=== PATIENT | female | born 1940 | race Caucasian/White ===

== ENCOUNTER → 2017-05-17 10:51 | Outpatient (CLI) | payer MEDICARE, SELFPAY ==
[2017-05-17 12:08] LABS: Absolute Lymphocyte Count 1.62 X10^3/ul (0.83-4.51); Absolute Neutrophil Count 3.3 X10^3/uL (2.0-7.7); Basophil# 0.03 X10^3/uL; Basophil% 0.5 % (0-1); Eosinophil# 0.04 X10^3/uL; Eosinophils% 0.7 % (0-5); Hematocrit 43.2 % (37-47); Hemoglobin 14.5 g/dl (12.0-15.0); Lymphocyte # 1.62 X10^3/ul (4.0); Lymphocyte % 29.1 % (19-41); Mean Corp Hgb Conc 33.6 g/gl (32-36); Mean Corpuscular Hgb 34.2 pg (27.0-32.0); Mean Corpuscular Volume 101.9 fL (81-99); Mean Platelet Vol. 9.1 fl (6.2-12.0); Monocyte# 0.54 X10^3/uL; Monocyte% 9.7 % (0-10); Neutrophil # 3.32 X10^3/uL (2.7-7.7); Neutrophil % 59.6 % (47-70); Platelet Count 348 K/mm3 (150-450); RBC Distribution Width CV 11.8 % (11.6-14.6); RBC Distribution Width SD 43.8 fl (35.1-43.9); Red Blood Count 4.24 M/mm3 (4.2-5.4); White Blood Count 5.6 K/mm3 (4.4-11.0)
[2017-05-17 12:12] LABS: POSITIVE COUNT NO; POSITIVE DIFFERENTIAL NO; POSITIVE MORPHOLOGY NO
[2017-05-17 12:18] LABS: Hemoglobin A1c 5.2 % (4.2-6.3)
[2017-05-17 12:22] LABS: Anion Gap 6 (5-15); BUN 16 mg/dL (7-18); BUN/Creat Ratio 22.8 RATIO (10-20); Calcium,Total 9.3 mg/dL (8.5-10.1); Chloride 98 mmol/L (98-107); EST Glomerular Filtration Rate 86 mL/min (>60); Est Glom Filt Rate - Afr Amer 104 mL/min (>60); Glucose 94 mg/dL (74-106); Potassium 3.8 mmol/L (3.5-5.1); Sodium Level 135 mmol/L (136-145)
== END ==
PROVIDERS: Family Provider Family Medicine; PCP Family Medicine; Visit Provider Family Medicine
DX: I10 Essential (primary) hypertension (principal); R73.01 Impaired fasting glucose
CPT/HCPCS: 36415; 80048; 83036; 85025

== ENCOUNTER → 2017-05-25 09:56 | Outpatient (CLI) | payer MEDICARE, SELFPAY ==
--- NOTE | 2017-05-25 10:00 | MRI_ITS ---
STUDY: MRI BRAIN WITH AND WITHOUT CONTRAST REASON FOR EXAM: Female, 76 years old. brain tumor, f/u meningioma, no symptoms. TECHNIQUE: Standardized multiplanar fat and water weighted pulse sequences were obtained. 7 ml of Gadavist contrast material was administered intravenously for the contrast portion of the examination. COMPARISON: October 27, 2016 FINDINGS: There is mild cerebral atrophy with widening of the extra-axial spaces and ventricular dilatation. There are multiple white matter hyperintensities, distributed throughout the deep white matter tracts of the cerebral hemispheres, consistent with moderate chronic white matter ischemic changes. Normal bilateral basal ganglia. Normal thalami. Again noted is the 1.0 x 0.7 cm right occipital enhancing lesion along the right tentorial leaflet without surrounding edema and without significant change since the prior examination. This lesion is most compatible with meningioma. Normal flow voids within the major intracranial circulation suggesting patency by spin echo criteria. Normal venous enhancement. There is no enhancing intra-axial or extra-axial abnormality. Normal sella turcica, pituitary gland, infundibular stalk, optic chiasm and hypothalamus. Normal tectal plate and pineal gland. Normal midbrain, alek and medulla. Normal cerebellum. Normal basal cisterns. Normal bilateral temporal bones. Normal bilateral internal auditory canals. There is left maxillary sinus disease. MRI/Brain W/WO Contrast IMPRESSION: Stable 1 cm right tentorial meningioma. Moderate involutional changes. Electronically Signed: Patricia Ledesma MD at 11:10 EDT Tel , Service support ,
== END ==
PROVIDERS: Family Provider Family Medicine; PCP Family Medicine; Visit Provider Nurse Practitioner Acute Care
DX: C71.9 Malignant neoplasm of brain, unspecified (principal)
CPT/HCPCS: 70553; A9585

== ENCOUNTER → 2017-06-01 13:14 | Outpatient (CLI) | payer MEDICARE, SELFPAY ==
--- NOTE | 2017-06-01 13:17 | CT_ITS ---
STUDY: CT CHEST WITH CONTRAST REASON FOR EXAM: Female, 76 years old. LUNG NODULE SOB RADIATION DOSAGE (If Supplied By Facility): CTDIvol = ( 7.75 ) mGy, DLP = ( 201.74 ) mGycm TECHNIQUE: Transaxial imaging was performed following intravenous administration of 100ML ml of Isovue 300 contrast material. Individualized dose optimization techniques were used for this CT. COMPARISON: 5.3.17 FINDINGS: 4.6 x 4 mm nodule of the left upper lobe. There are emphysematous changes of the lungs with emphysematous blebs. There is no demonstrated pleural abnormality. Normal heart and pericardium. Normal mediastinum. Normal hilar regions. Normal enhanced pulmonary arteries. Normal aorta arch and descending thoracic aorta. There are multi-level degenerative changes of the thoracic spine. There is no demonstrated abnormality of the visualized upper abdomen. CT/Chest WITH Contrast IMPRESSION: Stable nodule in the left upper lobe There are coronary arterial calcifications. Electronically Signed: Herminio Bean MD at 21:44 EDT , Service support ,
== END ==
PROVIDERS: Family Provider Family Medicine; PCP Family Medicine; Visit Provider Family Medicine
DX: R91.1 Solitary pulmonary nodule (principal); R06.00 Dyspnea, unspecified
CPT/HCPCS: 71260; Q9967

== ENCOUNTER → 2017-06-14 11:54 | Outpatient (CLI) | payer MEDICARE, SELFPAY ==
--- NOTE | 2017-06-14 11:57 | BI_ITS ---
MAMMOGRAPHY - BILATERAL SCREENING REASON FOR EXAM: Female, 76 years old. Routine annual screening examination. PERTINENT HISTORY: Non-contributory. Remote right excisional breast biopsies. TECHNIQUE: Digital bilateral breast edy (3D mammographic acquisition) in the CC and MLO projections. 2-D mediolateral oblique (MLO) and craniocaudad (CC) views of both breasts were obtained. CAD: Full Field Digital Mammography with Computer Added Detection was performed. COMPARISON: Comparison is made with prior examination dated November 21, 2014 and August 07, 2015. FINDINGS: Breast Composition: The breasts are heterogeneously dense, which may obscure small masses. There are no dominant masses or suspicious calcifications. Stable bilateral benign appearing axillary lymph nodes. No other significant abnormalities are identified. There has been no significant change since the prior study. BI/SCREENING MAMM (CAD), BILAT IMPRESSION: Stable bilateral screening mammogram. Yearly follow-up mammogram recommended. (A) ASSESSMENT CATEGORY: BIRADS Category 1: Negative. A letter regarding these results will be sent to the patient by the facility within 30 days. Approximately 10% of breast cancers are not detected by mammography. A normal mammogram should not delay biopsy of a clinically suspicious abnormality. [id number] Electronically Signed: Liu Newman MD at 13:59 EDT Tel [phone], Service support ,
== END ==
PROVIDERS: Family Provider Family Medicine; PCP Family Medicine; Visit Provider Family Medicine
DX: Z12.31 Encounter for screening mammogram for malignant neoplasm of breast (principal)
CPT/HCPCS: 77063; 77067

== ENCOUNTER → 2017-11-10 15:33 | Outpatient (CLI) | payer MEDICARE, SELFPAY ==
[2017-11-10 17:43] LABS: Absolute Lymphocyte Count 1.64 X10^3/ul (0.83-4.51); Absolute Neutrophil Count 4.5 X10^3/uL (2.0-7.7); Basophil# 0.03 X10^3/uL; Basophil% 0.4 % (0-1); Eosinophil# 0.02 X10^3/uL; Eosinophils% 0.3 % (0-5); Hematocrit 42.3 % (37-47); Hemoglobin 13.8 g/dl (12.0-15.0); Lymphocyte # 1.64 X10^3/ul (4.0); Lymphocyte % 23.6 % (19-41); Mean Corp Hgb Conc 32.6 g/gl (32-36); Mean Corpuscular Hgb 33.2 pg (27.0-32.0); Mean Corpuscular Volume 101.7 fL (81-99); Mean Platelet Vol. 9.3 fl (6.2-12.0); Monocyte# 0.72 X10^3/uL; Monocyte% 10.4 % (0-10); Neutrophil # 4.51 X10^3/uL (2.7-7.7); Platelet Count 361 K/mm3 (150-450); RBC Distribution Width CV 12.1 % (11.6-14.6); RBC Distribution Width SD 44.9 fl (35.1-43.9); Red Blood Count 4.16 M/mm3 (4.2-5.4); White Blood Count 6.9 K/mm3 (4.4-11.0)
[2017-11-10 18:04] LABS: POSITIVE COUNT NO; POSITIVE DIFFERENTIAL NO; POSITIVE MORPHOLOGY NO
== END ==
PROVIDERS: Visit Provider Family Medicine
DX: K62.5 Hemorrhage of anus and rectum (principal)
CPT/HCPCS: 36415; 85025

== ENCOUNTER → 2017-11-22 13:32 | Outpatient (CLI) | payer MEDICARE, SELFPAY ==
[2017-11-22 14:01] LABS: International Normalized Ratio 0.9; Partial Thromboplast Time 25.6 Seconds (24.1-36.2); Prothrombin Time (Protime)PT. 11.8 SECONDS (11.7-14.9)
[2017-11-22 14:15] LABS: AST(SGOT) 36 U/L (15-37); Alanine Aminotransfer ALT/SGPT 44 U/L (13-56); Albumin, Serum 4.1 g/dL (3.2-5.0); Alkaline Phosphatase 59 U/L (45-117); Anion Gap 8 (5-15); BUN 12 mg/dL (7-18); BUN/Creat Ratio 16.2 RATIO (10-20); Calcium,Total 9.3 mg/dL (8.5-10.1); Chloride 91 mmol/L (98-107); Creatinine, Serum 0.74 mg/dL (0.55-1.02); EST Glomerular Filtration Rate 81 mL/min (>60); Est Glom Filt Rate - Afr Amer 98 mL/min (>60); Glucose 94 mg/dL (74-106); Potassium 3.9 mmol/L (3.5-5.1); Protein, Total 8.1 g/dL (6.4-8.2); Sodium Level 130 mmol/L (136-145)
== END ==
PROVIDERS: Family Provider Family Medicine; PCP Family Medicine; Visit Provider Surgery
DX: K62.5 Hemorrhage of anus and rectum (principal); Z87.898 Personal history of other specified conditions
CPT/HCPCS: 36415; 80053; 85610; 85730

== ENCOUNTER 2017-12-02 07:09 | Day surgery (SDC) | payer MEDICARE, SELFPAY ==
--- NOTE | 2017-12-02 | COLBX_PTH ---
PATIENT: COMPA WATERS LOC: EN U#:[id number] AGE/SX: 77/F ROOM: RE12/02/[address]: Dr. Tejas Perdomo MD : 1940 BED: DIS: 12/02/2017 SPEC #: [id number] RECD: 12/02/17 13:14 STATUS: PARMINDER LIZETT #: [id number] CHAPITO: 12/02/17 00:[address]: Tejas Perdomo DEPT: SURGICAL PATHOLOGY RECD BY: Lc Guan ENTERED: 12/02/17 13:15 SP TYPE: COLON BX OT DR: Dr. Rustam Castro MD Tissues: A - Sigmoid colon biopsy B - Rectum, NOS Procedures: Surgery Specimen Level IV HEADER OPERATION: Colonoscopy (MAC) PRE-OP DIAGNOSIS: Blood in stool TISSUE SUBMITTED: A - Mid sigmoid polyp biopsies, B - Rectal polyp biopsies MICROSCOPIC DIAGNOSIS A. Mid sigmoid polyp, biopsy: Fragments of hyperplastic polyp. B. Rectal polyp, biopsy: Fragments of hyperplastic polyp. OZ:osorio 12/05/17 MICROSCOPIC DESCRIPTION Slides are reviewed. GROSS DESCRIPTION A - Received in fixative is one container labeled with the patient's name and designated mid sigmoid polyp biopsy. The specimen consists of two irregular fragments of light roy soft tissue that in aggregate measure 2 x 0.5 x 0.1 cm. The specimen is totally submitted in one cassette. B - Received in fixative is one container labeled with the patient's name and designated rectal polyp biopsy. The specimen consists of multiple irregular fragments of roy-pink polyp that in aggregate measure 1.5 x 1 x 0.3 cm. The specimen is totally submitted in one cassette. / OZ:osorio 12/02/17 TC:1 CPT: 81655 x2
[2017-12-02 07:44] VITALS: BP 152/75; PULSE 94; RESP 14; TEMP 36.9; O2SAT 95; BMI 24.5
[2017-12-02 09:01] VITALS: BP 124/68; BP 152/75; PULSE 89; RESP 16; TEMP 37; O2SAT 100
[2017-12-02 09:05] VITALS: BP 124/68; BP 152/75; PULSE 91; RESP 16; O2SAT 100
--- NOTE | 2017-12-02 09:09 | OP.ENDO_ITS ---
Patient Name: Nedra Kaiser Procedure Date: 12/02/2017 8:25 AM Date of : 1940 Age: 77 Procedure: Colonoscopy Indications: Rectal bleeding Providers: Tejas Perdomo MD Referring MD: Tejas Perdomo MD Medicines: See the Anesthesia note for documentation of the administered medications Patient Profile: Last Colonoscopy: none. The patient's first colonoscopy is today. Complications: No immediate complications. Procedure: Pre-Anesthesia Assessment: - Prior to the procedure, a History and Physical was performed, and patient medications and allergies were reviewed. The patient's tolerance of previous anesthesia was also reviewed. The risks and benefits of the procedure and the sedation options and risks were discussed with the patient. All questions were answered, and informed consent was obtained. Prior Anticoagulants: The patient has taken no previous anticoagulant or antiplatelet agents. ASA Grade Assessment: II - A patient with mild systemic disease. After reviewing the risks and benefits, the patient was deemed in satisfactory condition to undergo the procedure. After I obtained informed consent, the scope was passed under direct vision. Throughout the procedure, the patient's blood pressure, pulse, and oxygen saturations were monitored continuously. The pediatric colonoscope was introduced through the anus and advanced to the cecum, identified by appendiceal orifice and ileocecal valve. The colonoscopy was performed without difficulty. The patient tolerated the procedure well. The quality of the bowel preparation was good. The ileocecal valve was photographed. Scope In: 8:33:22 AM Scope Withdrawal Time 0 hours 21 minutes 21 seconds Scope Out: 8:59:58 AM Total Procedure Duration Time 0 hours 26 minutes 36 seconds Findings: The digital rectal exam findings include internal hemorrhoids that prolapse with straining, but spontaneously regress to the resting position (Grade II). Eight sessile polyps were found in the sigmoid colon. The polyps were 3 to 6 mm in size. These polyps were removed with a cold biopsy forceps. Resection and retrieval were complete. Five sessile polyps were found in the rectum. The polyps were 7 to 10 mm in size. These polyps were removed with a hot snare. Resection and retrieval were complete. Multiple diverticula were found in the sigmoid colon and descending colon. Impression: - Internal hemorrhoids that prolapse with straining, but spontaneously regress to the resting position (Grade II) found on digital rectal exam. - Eight 3 to 6 mm polyps in the sigmoid colon, removed with a cold biopsy forceps. Resected and retrieved. - Five 7 to 10 mm polyps in the rectum, removed with a hot snare. Resected and retrieved. - Diverticulosis in the sigmoid colon and in the descending colon. Recommendation: - Discharge patient to home. - Resume previous diet. - Continue present medications. - Telephone my office for pathology results in 1 week. - Repeat colonoscopy in 3 years for surveillance based on pathology results. I do not suspect the polyps are the source of rectal bleeding and suspect hemorrhoids are a more likely source. Will recommend conservative measures. Procedure Code(s): --- Professional --- 76214, Colonoscopy, flexible; with removal of tumor(s), polyp(s), or other lesion(s) by snare technique 67654, 59, Colonoscopy, flexible; with biopsy, single or multiple Diagnosis Code(s): --- Professional --- K64.1, Second degree hemorrhoids D12.5, Benign neoplasm of sigmoid colon K62.1, Rectal polyp K62.5, Hemorrhage of anus and rectum K57.30, Diverticulosis of large intestine without perforation or abscess without bleeding CPT copyright 2017 [employer]. All rights reserved. The codes documented in this report are preliminary and upon broach grinder review may be revised to meet current compliance requirements. Tejas Perdomo MD 12/02/2017 9:09:22 AM This report has been signed electronically. Number of Addenda: 0 Note Initiated On: 12/02/2017 8:25 AM
[2017-12-02 09:10] VITALS: BP 127/69; BP 152/75; PULSE 91; RESP 16; O2SAT 99
[2017-12-02 09:15] VITALS: BP 131/74; BP 152/75; PULSE 85; RESP 16; TEMP 37.2; O2SAT 100
[2017-12-02 09:35] VITALS: BP 152/75
== END 2017-12-02 09:58 | disposition home or self-care (01) ==
LOC: EN 07:10 → AC 07:12
PROVIDERS: Family Provider Family Medicine; PCP Family Medicine; Visit Provider Surgery
PROC: 0DJD8ZZ Inspection of Lower Intestinal Tract, Via Natural or Artificial Opening Endoscopic (ICD-10-PCS; CPT 45378; principal; 2017-12-02 08:10)
DX: K64.1 Second degree hemorrhoids (principal); D12.5 Benign neoplasm of sigmoid colon; K62.1 Rectal polyp; K62.5 Hemorrhage of anus and rectum; K57.30 Diverticulosis of large intestine without perforation or abscess without bleeding; Z87.891 Personal history of nicotine dependence
CPT/HCPCS: 45380; 45385; 88305; J7120

== ENCOUNTER → 2017-12-16 11:09 | Outpatient (CLI) | payer MEDICARE, SELFPAY ==
[2017-12-16 12:35] LABS: Absolute Lymphocyte Count 1.43 X10^3/ul (0.83-4.51); Absolute Neutrophil Count 4.2 X10^3/uL (2.0-7.7); Basophil# 0.03 X10^3/uL; Basophil% 0.5 % (0-1); Eosinophil# 0.03 X10^3/uL; Eosinophils% 0.5 % (0-5); Hematocrit 45.4 % (37-47); Hemoglobin 14.4 g/dl (12.0-15.0); Lymphocyte # 1.43 X10^3/ul (4.0); Lymphocyte % 22.9 % (19-41); Mean Corp Hgb Conc 31.7 g/gl (32-36); Mean Corpuscular Hgb 33.1 pg (27.0-32.0); Mean Corpuscular Volume 104.4 fL (81-99); Mean Platelet Vol. 9.5 fl (6.2-12.0); Monocyte# 0.59 X10^3/uL; Monocyte% 9.5 % (0-10); Neutrophil # 4.16 X10^3/uL (2.7-7.7); Neutrophil % 66.6 % (47-70); Platelet Count 342 K/mm3 (150-450); RBC Distribution Width CV 12.1 % (11.6-14.6); RBC Distribution Width SD 46.7 fl (35.1-43.9); Red Blood Count 4.35 M/mm3 (4.2-5.4); White Blood Count 6.2 K/mm3 (4.4-11.0)
[2017-12-16 12:38] LABS: POSITIVE COUNT NO; POSITIVE DIFFERENTIAL NO; POSITIVE MORPHOLOGY NO
[2017-12-16 13:09] LABS: Anion Gap 6 (5-15); BUN 14 mg/dL (7-18); BUN/Creat Ratio 17.4 RATIO (10-20); Calcium,Total 8.8 mg/dL (8.5-10.1); Chloride 99 mmol/L (98-107); EST Glomerular Filtration Rate 73 mL/min (>60); Est Glom Filt Rate - Afr Amer 89 mL/min (>60); Glucose 82 mg/dL (74-106); Potassium 3.8 mmol/L (3.5-5.1); Sodium Level 135 mmol/L (136-145); T4 Free Direct 1.02 ng/dL (0.76-1.46); Thyroid Stim Hormone (TSH) 1.26 uIU/mL (0.358-3.74)
== END ==
PROVIDERS: Family Provider Family Medicine; PCP Family Medicine; Visit Provider Family Medicine
DX: E07.9 Disorder of thyroid, unspecified (principal); I10 Essential (primary) hypertension; R73.01 Impaired fasting glucose
CPT/HCPCS: 36415; 80048; 84439; 84443; 85025

== ENCOUNTER 2018-05-05 10:58 | Observation (INO) | payer MEDICARE, SELFPAY ==
[2018-05-05] VITALS (25 sets, daily range): BP systolic 114–200; BP diastolic 56–116; PULSE 84–140; RESP 15–24; TEMP 36.7–37.4; O2SAT 93–100; BMI 24.5; BMI 23.7
--- NOTE | 2018-05-05 11:10 | EKG12_ITS ---
Test Reason : NEURO Blood Pressure : / mmHG Vent. Rate : 089 BPM Atrial Rate : 089 BPM P-R Int : 160 ms QRS Dur : 066 ms QT Int : 366 ms P-R-T Axes : 082 008 060 degrees QTc Int : 445 ms Sinus rhythm with Premature supraventricular complexes Otherwise normal ECG Confirmed by AURORA MCDONALD, ZORAN ([id number]), order editor BISMARK GUERRA ([id number]) on 05/08/2018 1:38:33 PM Referred By: RENO Confirmed By:ZORAN SIMON MD
--- NOTE | 2018-05-05 11:10 | RAD_ITS ---
STUDY: X-RAY CHEST REASON FOR EXAM: Female, 77 years old. Speech difficulty. TECHNIQUE: Single AP portable view of the chest. COMPARISON: None. FINDINGS: EKG electrodes are seen. Hyperinflation. Calcified granuloma in the right lower lobe. There is no demonstrated pleural abnormality. Normal size heart. Normal mediastinum and delmi. Normal visualized pulmonary arteries. There is atherosclerotic tortuosity of the aortic arch and descending thoracic aorta. There is a mild levoscoliosis of the thoracic spine. Normal visualized ribs, clavicles, and shoulders. There is no demonstrated abnormality of the visualized soft tissue structures of the upper abdomen. RAD/Chest 1 View IMPRESSION: Hyperinflation. No acute abnormality is seen. Electronically Signed: Liu Newman, at 12:30 EST , Service support ,
--- NOTE | 2018-05-05 11:10 | CT_ITS ---
STUDY: CT BRAIN WITHOUT CONTRAST REASON FOR EXAM: Female, 77 years old. Confusion. Aphasia. RADIATION DOSAGE (If Supplied By Facility): CTDIvol = ( 60.81 ) mGy, DLP = ( 1021.47 ) mGycm TECHNIQUE: Transaxial CT imaging of the brain was performed without administration of intravenous contrast material. Individualized dose optimization techniques were used for this CT. COMPARISON: Comparison is made with prior study dated September 30, 2016. FINDINGS: Normal soft tissue structures. Normal calvarium. There is mild cerebral atrophy with widening of the extra-axial spaces and ventricular dilatation. There are areas of decreased attenuation within the white matter tracts of the supratentorial brain, consistent with microvascular disease changes. Stable focal rounded hypodensity in the left basal ganglia most likely represents an old lacunar infarct. This is unchanged. Normal brainstem. Normal cerebellum. Once again, there is a 7.7 mm rounded calcification within the leaves of the tentorium on the right side. This may represent possible meningioma. There is no intracranial hemorrhage. There are no findings of an acute ischemic infarction. Atherosclerotic calcification of the cavernous portions of the internal carotid artery. Normal visualized paranasal sinuses. CT/Brain/Head without Contrast IMPRESSION: Chronic involutional changes of the brain. 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 Stable focal calcified nodule in the right side of the cerebellar tentorium. Electronically Signed: Liu Newman, at 12:29 EST , Service support ,
[2018-05-05 11:11] LABS: Bedside Glucose 92 mg/dL (70-110)
[2018-05-05 11:19] LABS: Absolute Lymphocyte Count 1.56 X10^3/ul (0.83-4.51); Absolute Neutrophil Count 3.1 X10^3/uL (2.0-7.7); Basophil# 0.02 X10^3/uL; Basophil% 0.4 % (0-1); Eosinophil# 0.01 X10^3/uL; Eosinophils% 0.2 % (0-5); Hematocrit 46.2 % (37-47); Hemoglobin 15.2 g/dl (12.0-15.0); Lymphocyte # 1.56 X10^3/ul (4.0); Lymphocyte % 29.3 % (19-41); Mean Corp Hgb Conc 32.9 g/gl (32-36); Mean Corpuscular Hgb 32.7 pg (27.0-32.0); Mean Corpuscular Volume 99.4 fL (81-99); Monocyte# 0.59 X10^3/uL; Monocyte% 11.1 % (0-10); Neutrophil # 3.13 X10^3/uL (2.7-7.7); Neutrophil % 58.8 % (47-70); Platelet Count 286 K/mm3 (150-450); RBC Distribution Width CV 11.8 % (11.6-14.6); RBC Distribution Width SD 42.6 fl (35.1-43.9); Red Blood Count 4.65 M/mm3 (4.2-5.4); White Blood Count 5.3 K/mm3 (4.4-11.0)
[2018-05-05 11:21] LABS: POSITIVE COUNT NO; POSITIVE DIFFERENTIAL NO; POSITIVE MORPHOLOGY NO
[2018-05-05 11:25] LABS: International Normalized Ratio 0.9; Partial Thromboplast Time 26.6 Seconds (24.1-36.2); Prothrombin Time (Protime)PT. 12.1 SECONDS (11.7-14.9)
[2018-05-05 11:31] LABS: Anion Gap 7 (5-15); BUN 10 mg/dL (7-18); BUN/Creat Ratio 15.1 RATIO (10-20); Calcium,Total 8.8 mg/dL (8.5-10.1); Chloride 94 mmol/L (98-107); Creatinine, Serum 0.66 mg/dL (0.55-1.02); EST Glomerular Filtration Rate 91 mL/min (>60); Est Glom Filt Rate - Afr Amer 110 mL/min (>60); Estimated Creatinine Clearance 41.72 ml/min; Glucose 92 mg/dL (74-106); Potassium 3.6 mmol/L (3.5-5.1); Sodium Level 129 mmol/L (136-145)
--- NOTE | 2018-05-05 12:46 | ED.VISSUMM ---
- ER Visit Summary Date of Service: 05/05/18 Chief Complaint: Difficulty speaking History of Present Illness: The patient is a 77 F who states that for about an hour this morning she was speak. Her states that she would make sounds but nothing was coherent. After the speech resolved she states her right hand was tingling as well but that has resolved. She has a history of hypertension history of smoking and notes that she drinks significant amount of alcohol daily. He tells me she has had 2 rum and Cokes today. She has a chronic cough that has not been changed. She states she had a headache last night but not today. Physical Examination: Noted hypertension 200/105 Gen: Well-nourished well-developed Head: Normocephalic atraumatic Eyes: Perrl EOMI ENT: TMs clear no rhinorrhea moist mucous membranes Neck: Supple no lymphadenopathy no JVD nontender CVS: Regular rate rhythm no murmurs normal S1-S2 Respiratory: No distress clear to auscultation bilaterally chest nontender Abdomen: Soft nontender nondistended normal bowel sounds no masses Back: Nontender Extremity: Nontender no edema Skin: Normal color no rash Neuro: alert orientated ?3 CN II-XII intact normal strength sensation reflexes gait cerebellar NIH scale is 0 Psych: Normal affect normal mood Test Results: Sodium 129. Alcohol 23. Troponin negative. EKG sinus with a rate of 89. CT the brain showed chronic changes. Chest x-ray was clear. CTA of the head neck shows no hemodynamically significant lesions. Emergency Department Course and Treatment: Patient received hydralazine after her head CT read was back. She continues to be asymptomatic. I spoke with neurology was come to evaluate the patient in the emergency department. Plan is admission. Impression: 1. TIA 2. Hypertension This note was generated with [employer] software. It may contain incorrect words, spelling, and punctuation that were not noted in review of the chart prior to signing ED Disposition - Plan for ED Patient: Referrals: Rustam Castro MD [Primary Care Provider] -
[2018-05-05] MEDS: hydrALAZINE 20 MG/ML Vial 10 MG IV (12:48)
--- NOTE | 2018-05-05 13:04 | CT_ITS ---
STUDY: CTA OF THE BRAIN REASON FOR EXAM: Female, 77 years old. Confusion. Aphasia. RADIATION DOSAGE (If Supplied By Facility): CTDIvol = ( 16.75 ) mGy, DLP = ( 603.9 ) mGycm TECHNIQUE: CT angiography was performed with a multi-detector CT scanner. Data acquisition was obtained from the skull base through the vertex following intravenous administration of Isovue 370 100 IV. MIP images were reconstructed from the axial data set. Post-processing of the angiographic images was performed, with multiplanar reformation and 3D reconstruction. Individualized dose optimization techniques were used for this CT. COMPARISON: None. FINDINGS: Normal bilateral petrous carotid arteries. There is calcified plaque formation of the right cavernous carotid artery, without a cross-sectional luminal stenosis. There is calcified plaque formation of the left cavernous carotid artery, without a cross-sectional luminal stenosis. Normal right A1 segments of the anterior cerebral artery. Normal left A1 segments of the anterior cerebral artery. Normal intact anterior communicating artery (ACOM). Normal bilateral A2 segments of the anterior cerebral arteries. Normal right M1 and M2 segments of the middle cerebral arteries, with a normal M1 bifurcation. Normal left M1 and M2 segments of the middle cerebral arteries, with a normal M1 bifurcation. There is a persistent origin of the right posterior cerebral artery with absence of the posterior communicating artery (PCOM). There is a persistent origin of the left posterior cerebral artery with absence of the posterior communicating artery (PCOM). Normal bilateral vertebral arteries. Normal basilar artery with a normal basilar bifurcation. The visualized bilateral superior cerebellar (SCA) arteries are normal. Normal bilateral P1, P2 and visualized P3 segments of the posterior cerebral arteries. There is no demonstrated aneurysm of the [place]. There is no demonstrated abnormality of the visualized brain. CT/CTA Head W/WO Contrast IMPRESSION: Normal [place] without a demonstrated aneurysm or hemodynamically significant stenosis. Electronically Signed: Liu Newman, at 14:32 EST , Service support ,
--- NOTE | 2018-05-05 13:04 | CT_ITS ---
STUDY: CTA NECK WITH CONTRAST REASON FOR EXAM: Female, 77 years old. Confusion. Aphasia. RADIATION DOSAGE (If Supplied By Facility): CTDIvol = ( 16.75 ) mGy, DLP = ( 603.9 ) mGycm TECHNIQUE: CT angiography with multi-detector data acquisition was performed from the aortic arch to the skull base following intravenous administration of Isovue 370 100 IV. MIP images were reconstructed from the axial data set. Post-processing of the angiographic images was performed, with multiplanar reformation and 3D reconstruction. Individualized dose optimization techniques were used for this CT. COMPARISON: None. FINDINGS: Calcified mediastinal lymph nodes. 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 AORTIC ARCH: There is atherosclerotic calcific plaque formation of the aortic arch and great vessels arising from the aortic arch, without a hemodynamically significant stenosis. Nonstenotic calcification of the origin of the left internal carotid artery and brachiocephalic artery as well as subclavian artery. RIGHT CAROTID ARTERIES: Normal right common carotid artery (CCA). Normal right common carotid bulb. There is mild atherosclerotic plaque formation of the origin of the right internal carotid artery with less than 50% cross sectional diameter stenosis. Normal visualized cervical portion of the right internal carotid artery. Normal origin of the right external carotid artery (ECA). LEFT CAROTID ARTERIES: There is atherosclerotic plaque formation of the common carotid artery, but without a hemodynamically significant stenosis. Normal left common carotid bulb. Normal origin of the left internal carotid (ICA) artery without a hemodynamically significant stenosis. Normal visualized cervical portion of the left internal carotid artery. Normal origin of the left external carotid artery (ECA). VERTEBRAL ARTERIES: There is enhancement within the bilateral vertebral arteries with a small right vertebral artery, and a dominant left vertebral artery. Degenerative changes throughout the cervical spine. CT/CTA Neck W/WO Contrast IMPRESSION: Nonstenotic calcific plaques in the left common carotid artery and at the right carotid bifurcation. Electronically Signed: Liu Newman, at 14:39 EST , Service support ,
--- NOTE | 2018-05-05 14:20 | CON.PCM_ITS ---
Problem List (1) TIA (transient ischemic attack) Status: Acute Reason for Consult Date of Consultation: 05/05/18 Reason for Consultation: Speech disturbances History of Present Illness: The patient is a 77 year old F with PMH HTN, ETOH abuse admitted with speech disturbances. Per patient this morning she had speech disturbances where she could not get her words out, had expressive aphasia for about 11/2 hrs, followed by right face and arm numbness which later improved. Per patient she also drinks about 3-4 shots of rum every day. Denies any frequent falls, does drive and does not need any assistance for her ADLs. Denies any BLAND, dizziness, facial droop, at present denies any focal motor weakness, sensory loss or visual disturbances. SBP was around 200 mmHg on admission, NIHSS was [address] head did not show anything acute. CTA head/neck did not show any hemodynamically significant stenosis or occlusion but reported to show 5 mm medially directed right distal cavernous ICA aneurysm, and 6 mm medially directed left distal cavernous ICA aneurysm, 5 mm superiorly directed left supraclinoid ICA aneurysm. 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 Hearing loss H91.90 Hearing problem H91.90 Impaired fasting glucose R73.01 Osteopenia M85.80 Solitary pulmonary nodule R91.1 Hypertension I10 Allergies No Known Allergies Allergy (Verified 05/05/18 11:01) Home Medications: Ambulatory Orders Medication Instructions Recorded Meloxicam [Mobic] 15 mg PO DAILY 04/01/16 antiarthritic combination no.2 900 900 mg PO BID tab 11/22/17 mg tablet lisinopril 40 mg tablet 40 mg PO DAILY 11/22/17 Calcium Carbonate/Vitamin D3 2 tab PO DAILY 05/05/18 [Calcium 600 + Vit D Tablet] Levofloxacin 500 mg PO DAILY 05/05/18 Multivitamin with Minerals 1 tab PO DAILY 05/05/18 [Multiple Vitamin] Vitamin B Complex 1 each PO DAILY 05/05/18 Surgical History: Surgical History (Last Updated 11/22/17 @ 13:07 by Jaylin Veronica) History of appendectomy Z90.49 History of breast biopsy Z98.890 History of cataract surgery Z98.49 History of left hip replacement Z96.642 History of ovarian cystectomy Z98.890, Z87.42 Lives: Spouse/ Significant Other Smoking Status: Former smoker Alcohol: Heavy - drinks 3-4 shots of rum daily Drugs: None - *Family History Maternal Family History: Family History (Last Updated 11/22/17 @ 13:12 by Jaylin Veronica) Mother Malignant neoplasm of skin Arthritis Osteoporosis Aunt CVA (cerebral vascular accident) Grandfather Asthma CVA (cerebral vascular accident) Father Asthma History Items: - - Patient notes a maternal family history of osteoporosis, osteoarthritis, skin cancer. Paternal Family History: Family History (Last Updated 11/22/17 @ 13:12 by Jaylin Veronica) Mother Malignant neoplasm of skin Arthritis Osteoporosis Aunt CVA (cerebral vascular accident) Grandfather Asthma CVA (cerebral vascular accident) Father Asthma History Items: - - Patient notes a paternal family history of asthma. Review of Systems Constitutional: Reports: - - complete ROS negative except as documented in HPI Patient Problems: Active and Suspected Problems (Last Reviewed 11/22/17 @ 13:05 by Jaylin Veronica) TIA (transient ischemic attack) (Acute) - Physical Exam General: Alert HEENT: Normocephalic Neck: Supple Lungs: Normal air movement Cardiovascular: Normal S1, Normal S2 Abdomen: Bowel Sounds Present Extremities: No cyanosis Neurological: - - consious, alert, AoAx3, CN 2-12 grossly intact, power 5/5 all 4 extremities, no sensory loss, no cerebellar signs, Reflexes + B/L B/S/T/K/A, NIHSS 0 at present, mRS 0 at baseline, ABCD2 score atleast 5 Psych/Mental Status: Normal Affect Vital Signs Temp Pulse Resp BP Pulse Ox 98.3 F 109 H 17 158/77 H 98 05/05/18 10:59 05/05/18 14:14 05/05/18 14:14 05/05/18 14:14 05/05/18 14:14 Oxygen Flow Rate (L/min) 1 Oxygen Delivery Method Nasal Cannula Weight: 66.7 kg Body Mass Index (BMI) 24.5 Finger Stick Blood Glucose 92 Laboratory Tests Past 24 Hrs 05/05/18 05/05/18 05/05/18 11:10 11:10 11:10 WBC 5.3 RBC 4.65 Hgb 15.2 H Hct 46.2 MCV 99.4 H MCH 32.7 H MCHC 32.9 RDW 11.8 RDW Differential 42.6 Plt Count 286 MPV 9.0 Immature Gran % (Auto) 0.200 Neut % (Auto) 58.8 Lymph % (Auto) 29.3 [place] % (Auto) 11.1 H Eos % (Auto) 0.2 Baso % (Auto) 0.4 Absolute Neuts (auto) 3.1 Absolute Lymphs (auto) 1.56 Total Counted Not Reportable PT 12.1 INR 0.9 APTT 26.6 Sodium 129 L Potassium 3.6 Chloride 94 L Carbon Dioxide 28.0 Anion Gap 7 BUN 10 Creatinine 0.66 Estim Creat Clear Calc 41.72 Est GFR (MDRD) Af Amer 110 Est GFR (MDRD) Non-Af 91 BUN/Creatinine Ratio 15.1 Glucose 92 Calcium 8.8 Troponin I < 0.015 Ethyl Alcohol 05/05/18 11:10 WBC RBC Hgb Hct MCV MCH MCHC RDW RDW Differential Plt Count MPV Immature Gran % (Auto) Neut % (Auto) Lymph % (Auto) [place] % (Auto) Eos % (Auto) Baso % (Auto) Absolute Neuts (auto) Absolute Lymphs (auto) Total Counted PT INR APTT Sodium Potassium Chloride Carbon Dioxide Anion Gap BUN Creatinine Estim Creat Clear Calc Est GFR (MDRD) Af Amer Est GFR (MDRD) Non-Af BUN/Creatinine Ratio Glucose Calcium Troponin I Ethyl Alcohol 23.0 POC Glucose 05/05/18 11:06 POC Glucose 92 Assessment/Plan All Active Problems (Last Reviewed 11/22/17 @ 13:05 by Jaylin Veronica) TIA (transient ischemic attack) (Acute) Rectal bleeding (Acute) The patient is a 77 year old F with PMH HTN, ETOH abuse admitted with speech disturbances. Per patient this morning she had speech disturbances where she could not get her words out, had expressive aphasia for about 11/2 hrs, followed by right face and arm numbness which later improved. Per patient she also drinks about 3-4 shots of rum every day. Denies any frequent falls, does drive and does not need any assistance for her ADLs. Denies any BLAND, dizziness, facial droop, at present denies any focal motor weakness, sensory loss or visual disturbances. SBP was around 200 mmHg on admission, NIHSS was [address] head did not show anything acute. CTA head/neck did not show any hemodynamically significant stenosis or occlusion but reported to show 5 mm medially directed right distal cavernous ICA aneurysm, and 6 mm medially directed left distal cavernous ICA aneurysm, 5 mm superiorly directed left supraclinoid ICA aneurysm. Impression TIA ETOH abuse Plan -ASA 81 mg PO once daily and Plavix 75 mg PO once daily, dual AP for 21 days then switch to single AP with ASA 81 mg PO once daily. Bleeding risks discussed in detail. ABCD2 score atleast 5. -Lipitor 40 mg PO q hs -Check MRI brain w/o contrast -Check TTE, LDL, Hba1c -Check Vitamin B1, Vitamin B12, TSH -Thiamine 100 mg PO once daily -Avoid alcohol -W/F DTs -Frequent neuro checks -Neurosurgery consults for aneurysm. -PT/OT/ST -GI/DVT prophylaxis -Fall precautions -Follow up with Neurology as outpatient in 2-3 weeks -Please call with questions if any -Thank you for allowing us to participate in patient's care and management. Code Visit Inpatient E&M: 21030 Init Hosp L3
[2018-05-05 14:55] LABS: Cholesterol 217 mg/dL (200); High Density Lipoprotein 66 mg/dL; Triglycerides 75 mg/dL; Very Low Density Lipoprotein 15 mg/dL (5-40)
[2018-05-05 15:03] LABS: Vitamin B12 1101 pg/mL (211-911)
[2018-05-05 15:07] LABS: Hemoglobin A1c 5.5 % (4.2-6.3)
--- NOTE | 2018-05-05 15:29 | PCM.HP.STD ---
Problem List (1) TIA (transient ischemic attack) Status: Acute (2) HTN (hypertension) Status: Chronic Qualifiers: Hypertension type: essential hypertension Qualified Code(s): I10 - Essential (primary) hypertension (3) HLD (hyperlipidemia) Status: Chronic Qualifiers: Hyperlipidemia type: pure hypercholesterolemia Qualified Code(s): E78.00 - Pure hypercholesterolemia, unspecified; E78.0 - Pure hypercholesterolemia (4) ETOH abuse Status: Chronic History of Present Illness Date of Admission: 05/05/18 Chief Complaint: Confusion, asphia The patient is a 77 y/o F w/ PMHx: EtOH Abuse, HTN, HLD, OA, Former Tobacco use who presents to the [facility] ED On 05/05/18 with history of 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 In the ED patient child development director 10 mg IV hydralazine x1. Patient evaluated by neurology in the ED. 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 Hearing loss H91.90 Hearing problem H91.90 Impaired fasting glucose R73.01 Osteopenia M85.80 Solitary pulmonary nodule R91.1 Hypertension I10 Allergies No Known Allergies Allergy (Verified 05/05/18 11:01) Home Medications: Ambulatory Orders Medication Instructions Recorded Meloxicam [Mobic] 15 mg PO DAILY 04/01/16 antiarthritic combination no.2 900 900 mg PO BID tab 11/22/17 mg tablet lisinopril 40 mg tablet 40 mg PO DAILY 11/22/17 Calcium Carbonate/Vitamin D3 2 tab PO DAILY 05/05/18 [Calcium 600 + Vit D Tablet] Levofloxacin 500 mg PO DAILY 05/05/18 Multivitamin with Minerals 1 tab PO DAILY 05/05/18 [Multiple Vitamin] Vitamin B Complex 1 each PO DAILY 05/05/18 Surgical History: Surgical History (Last Updated 11/22/17 @ 13:07 by Jaylin Veronica) History of appendectomy Z90.49 History of breast biopsy Z98.890 History of cataract surgery Z98.49 History of left hip replacement Z96.642 History of ovarian cystectomy Z98.890, Z87.42 Surgical History: - - Appendectomy, breast biopsy unclear side, cataract surgery, left hip replacement, left ovarian cyst intervention. 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 Tobacco Use: Cigarettes Alcohol: Heavy - Patient drinks 4-5, 4-8 ounce glasses of rum daily and occasionally wine. Drugs: None - *Family History Maternal Family History: Family History (Last Updated 11/22/17 @ 13:12 by Jaylin Veronica) Mother Malignant neoplasm of skin Arthritis Osteoporosis Aunt CVA (cerebral vascular accident) Grandfather Asthma CVA (cerebral vascular accident) Father Asthma History Items: - - Patient notes a maternal family history of osteoporosis, osteoarthritis, skin cancer. Paternal Family History: Family History (Last Updated 11/22/17 @ 13:12 by Jaylin Veronica) Mother Malignant neoplasm of skin Arthritis Osteoporosis Aunt CVA (cerebral vascular accident) Grandfather Asthma CVA (cerebral vascular accident) Father Asthma History Items: - - Patient notes a paternal family history of asthma. Review of Systems Constitutional: Reports: Malaise, Weakness, Fatigue. Denies: Chills, Fever, Weight Change HEENT: Denies: Head Aches, Sinus Congestion, Sinus Drainage Cardiovascular: Denies: Chest Pain, Palpitations Respiratory: Denies: Cough, Shortness of breath at rest, Sputum production Gastrointestinal: Denies: Abdominal Pain, Nausea, Vomiting Genitourinary: Denies: Dysuria Musculoskeletal: Reports: Joint Pain. Denies: Joint Tenderness Skin: Denies: Rash, Wounds Neurological: Reports: Change in Speech, Confusion, Numbness. Denies: Focal weakness, Tingling Psychiatric: Denies: Anxiety, Depression, Homicidal Ideations, Suicidal Ideations Hematologic/ Lymphatic: Denies: Easy Bruising, Easy Bleeding VTE Information - Inpt Only VTE Present on Admission: No VTE Mechan Device Prophylaxis: SCD's VTE Pharm Prophylaxis ordered?: Yes Patient Problems: Active and Suspected Problems (Last Reviewed 11/22/17 @ 13:05 by Jaylin Veronica) TIA (transient ischemic attack) (Acute) Subjective: Seated upright in the ED, mildly fatigued appearing, mildly disheveled, no acute distress. Objective: Physical Examination: General: awake, alert, oriented x 3 and cooperative, seated upright in the ED bed in no apparent distress. Skin: normal color, turgor, no icterus, cyanosis. HEENT: AT/NC, EOMI, PERRLA, mildly dry MM, no carotid bruits or JVD noted, smeared makeup evident. Lungs: Mild diminished breath sounds bilateral bases, moderate effort, and occasional rare soft end expiratory wheeze, no rales or rhonchi. Heart: Regular rate and rhythm; no gallop, rub audible. Abdomen: soft, NTTP, ND, normal BS, + HM. Extremities: no cyanosis, clubbing, or edema. Neurological: patient awake, alert, oriented x 3; cognitive function appears baseline intact; pupils equally reactive to light and accomodation; cranial nerves II-XII grossly normal, moving all 4 extremities, no focal deficits, strength mildly globally decreased secondary to acute presentation, sensation intact, no recurrence aphasia noted, FTN and HTS appropriate, negative babinski. Psychiatric: affect appears fatigued, no acute evidence of depressive or anxiety feelings. - Physical Exam Vital Signs Temp Pulse Resp BP Pulse Ox 98.3 F 113 H 18 159/82 H 99 05/05/18 10:59 05/05/18 15:00 05/05/18 15:00 05/05/18 15:00 05/05/18 15:00 Oxygen Flow Rate (L/min) 1 Oxygen Delivery Method Nasal Cannula Weight: 147 lb 0.773 oz Body Mass Index (BMI) 24.5 Finger Stick Blood Glucose 92 Laboratory Tests Past 24 Hrs 05/05/18 05/05/18 05/05/18 11:10 11:10 11:10 WBC 5.3 RBC 4.65 Hgb 15.2 H Hct 46.2 MCV 99.4 H MCH 32.7 H MCHC 32.9 RDW 11.8 RDW Differential 42.6 Plt Count 286 MPV 9.0 Immature Gran % (Auto) 0.200 Neut % (Auto) 58.8 Lymph % (Auto) 29.3 [place] % (Auto) 11.1 H Eos % (Auto) 0.2 Baso % (Auto) 0.4 Absolute Neuts (auto) 3.1 Absolute Lymphs (auto) 1.56 Total Counted Not Reportable PT 12.1 INR 0.9 APTT 26.6 Sodium 129 L Potassium 3.6 Chloride 94 L Carbon Dioxide 28.0 Anion Gap 7 BUN 10 Creatinine 0.66 Estim Creat Clear Calc 41.72 Est GFR (MDRD) Af Amer 110 Est GFR (MDRD) Non-Af 91 BUN/Creatinine Ratio 15.1 Glucose 92 Hemoglobin A1c Calcium 8.8 Troponin I < 0.015 Triglycerides Cholesterol LDL Cholesterol VLDL Cholesterol HDL Cholesterol Whole Bld Vitamin B1 Vitamin B12 Ethyl Alcohol 05/05/18 05/05/18 05/05/18 11:10 14:32 14:32 WBC RBC Hgb Hct MCV MCH MCHC RDW RDW Differential Plt Count MPV Immature Gran % (Auto) Neut % (Auto) Lymph % (Auto) [place] % (Auto) Eos % (Auto) Baso % (Auto) Absolute Neuts (auto) Absolute Lymphs (auto) Total Counted PT INR APTT Sodium Potassium Chloride Carbon Dioxide Anion Gap BUN Creatinine Estim Creat Clear Calc Est GFR (MDRD) Af Amer Est GFR (MDRD) Non-Af BUN/Creatinine Ratio Glucose Hemoglobin A1c 5.5 Calcium Troponin I Triglycerides 75 Cholesterol 217 H LDL Cholesterol 136 H VLDL Cholesterol 15 HDL Cholesterol 66 Whole Bld Vitamin B1 Vitamin B12 Ethyl Alcohol 23.0 05/05/18 05/05/18 14:32 14:32 WBC RBC Hgb Hct MCV MCH MCHC RDW RDW Differential Plt Count MPV Immature Gran % (Auto) Neut % (Auto) Lymph % (Auto) [place] % (Auto) Eos % (Auto) Baso % (Auto) Absolute Neuts (auto) Absolute Lymphs (auto) Total Counted PT INR APTT Sodium Potassium Chloride Carbon Dioxide Anion Gap BUN Creatinine Estim Creat Clear Calc Est GFR (MDRD) Af Amer Est GFR (MDRD) Non-Af BUN/Creatinine Ratio Glucose Hemoglobin A1c Calcium Troponin I Triglycerides Cholesterol LDL Cholesterol VLDL Cholesterol HDL Cholesterol Whole Bld Vitamin B1 Pending Vitamin B12 1101 H Ethyl Alcohol POC Glucose 05/05/18 11:06 POC Glucose 92 Assessment/Plan All Active Problems (Last Reviewed 11/22/17 @ 13:05 by Jaylin Veronica) TIA (transient ischemic attack) (Acute) Rectal bleeding (Acute) The patient is a 77 y/o F w/ PMHx: EtOH Abuse, HTN, HLD, OA, Former Tobacco use who presents to the [facility] ED On 05/05/18 with history of 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 (1) Expressive aphasia, paresthesias concerning for TIA with prior evidence of CVA: ED workup included T 98.3, heart rate 91, BP initially 200/105, respiratory rate 18, 96% on room air, CBC with WC 5.3, hemoglobin 15.2, platelet 286 without left shift, unremarkable coags, BMP with sodium 129, chloride 94, troponin < 0.015, FLP this rate 75, cholesterol 217, LDL 136, HDL 66, VLDL 15, EKG with sinus rhythm with no acute evidence of ischemia, CT of the brain with chronic involutional changes with prior stable old lacunar infarct in the left basal ganglion with a stable focal calcified nodule in the right side of the cerebellar tentorium, chest x-ray with chronic ages with no acute cardiopulmonary findings, CTA Head w/ normal [place] without demonstrated aneurysm or hemodynamically significant stenosis, CTA Neck w/ nonstenotic calcific plaques in the left common carotid artery and at the right carotid bifurcation. In the ED patient child development director 10 mg IV hydralazine x1. Patient evaluated by neurology in the ED. Will admit to PCU, will obtain MRI Brain, ECHO, PT/OT/Speech/Nutrition evaluation per protocol. Will continue Neurology evaluation. Will allow permissive HTN for initial 24 hours per Neurology recommendation, maintain on asa/plavix x 21 days w/ single therapy planned following, add moderate statin w/ FLP as noted, fall precautions. Mag pending, TSH pending. (2) EtOH Abuse: Patient notes routine consumption of 4-5, 4-8 ounce glasses of rum per day. Last drink was morning on day of ED presentation. Will maintain on CIWA protocol, MVI, thiamine and folic acid. CM consulted for sobriety assist. Mag, Phos pending. (3) Hyponatremia, Suspect Chronic: Patient with mild hyponatremia, sodium 129, suspect likely chronic component given alcohol abuse history, gently hydrating given #1, repeat BMP in a.m. Mag, TSH pending as noted. (4) Hypertension: Permissive. (5) Hyperlipidemia: Not on regimen, adding moderate dose statin, FLP obtained in the ED as noted. (6) Former Tobacco use w/ Suspected Chronic COPD: ATC duonebs, PRN albuterol, HOB, IS parameters, encouraged continued tobacco cessation. (7) DVT Prophylaxis: SCDs, lovenox. Code Visit OBSV E&M: 25693 Initial observation care L3
--- NOTE | 2018-05-05 15:30 | NURSING ---
DR RAMOS FOR DR BOJORQUEZ
--- NOTE | 2018-05-05 15:35 | HP.PCM_ITS ---
Problem List (1) TIA (transient ischemic attack) Status: Acute (2) HTN (hypertension) Status: Chronic Qualifiers: Hypertension type: essential hypertension Qualified Code(s): I10 - Essential (primary) hypertension (3) HLD (hyperlipidemia) Status: Chronic Qualifiers: Hyperlipidemia type: pure hypercholesterolemia Qualified Code(s): E78.00 - Pure hypercholesterolemia, unspecified; E78.0 - Pure hypercholesterolemia (4) ETOH abuse Status: Chronic History of Present Illness Date of Admission: 05/05/18 Chief Complaint: Confusion, asphia The patient is a 77 y/o F w/ PMHx: EtOH Abuse, HTN, HLD, OA, Former Tobacco use who presents to the [facility] ED On 05/05/18 with history of onset ~ 1-1.5 hours PYTHON ARCHITECT in the ED expressive aphasia with then additionally paresthesias to the right face and right upper extremity primarily decreased sensation however this resolves upon presentation to the ED during the driving with initial NIH is 0. In the ED workup included T 98.3, heart rate 91, BP initially 200/105, respiratory rate 18, 96% on room air, CBC with WC 5.3, hemoglobin 15.2, platelet 286 without left shift, unremarkable coags, BMP with sodium 129, chloride 94, troponin < 0.015, FLP this rate 75, cholesterol 217, LDL 136, HDL 66, VLDL 15, EKG with sinus rhythm with no acute evidence of ischemia, CT of the brain with chronic involutional changes with prior stable old lacunar infarct in the left basal ganglion with a stable focal calcified nodule in the right side of the cerebellar tentorium, chest x-ray with chronic ages with no acute cardiopulmonary findings, CTA Head w/ normal [place] without demonstrated aneurysm or hemodynamically significant stenosis, CTA Neck w/ nonstenotic calcific plaques in the left common carotid artery and at the right carotid bifurcation. 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 Patient evaluated by neurology in the ED. 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 Hearing loss H91.90 Hearing problem H91.90 Impaired fasting glucose R73.01 Osteopenia M85.80 Solitary pulmonary nodule R91.1 Hypertension I10 Allergies No Known Allergies Allergy (Verified 05/05/18 11:01) Home Medications: Ambulatory Orders Medication Instructions Recorded Meloxicam [Mobic] 15 mg PO DAILY 04/01/16 antiarthritic combination no.2 900 900 mg PO BID tab 11/22/17 mg tablet lisinopril 40 mg tablet 40 mg PO DAILY 11/22/17 Calcium Carbonate/Vitamin D3 2 tab PO DAILY 05/05/18 [Calcium 600 + Vit D Tablet] Levofloxacin 500 mg PO DAILY 05/05/18 Multivitamin with Minerals 1 tab PO DAILY 05/05/18 [Multiple Vitamin] Vitamin B Complex 1 each PO DAILY 05/05/18 Surgical History: Surgical History (Last Updated 11/22/17 @ 13:07 by Jaylin Veronica) History of appendectomy Z90.49 History of breast biopsy Z98.890 History of cataract surgery Z98.49 History of left hip replacement Z96.642 History of ovarian cystectomy Z98.890, Z87.42 Surgical History: - - Appendectomy, breast biopsy unclear side, cataract surgery, left hip replacement, left ovarian cyst intervention. 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 Tobacco Use: Cigarettes Alcohol: Heavy - Patient drinks 4-5, 4-8 ounce glasses of rum daily and occasionally wine. Drugs: None - *Family History Maternal Family History: Family History (Last Updated 11/22/17 @ 13:12 by Jaylin Veronica) Mother Malignant neoplasm of skin Arthritis Osteoporosis Aunt CVA (cerebral vascular accident) Grandfather Asthma CVA (cerebral vascular accident) Father Asthma History Items: - - Patient notes a maternal family history of osteoporosis, osteoarthritis, skin cancer. Paternal Family History: Family History (Last Updated 11/22/17 @ 13:12 by Jaylin Veronica) Mother Malignant neoplasm of skin Arthritis Osteoporosis Aunt CVA (cerebral vascular accident) Grandfather Asthma CVA (cerebral vascular accident) Father Asthma History Items: - - Patient notes a paternal family history of asthma. Review of Systems Constitutional: Reports: Malaise, Weakness, Fatigue. Denies: Chills, Fever, Weight Change HEENT: Denies: Head Aches, Sinus Congestion, Sinus Drainage Cardiovascular: Denies: Chest Pain, Palpitations Respiratory: Denies: Cough, Shortness of breath at rest, Sputum production Gastrointestinal: Denies: Abdominal Pain, Nausea, Vomiting Genitourinary: Denies: Dysuria Musculoskeletal: Reports: Joint Pain. Denies: Joint Tenderness Skin: Denies: Rash, Wounds Neurological: Reports: Change in Speech, Confusion, Numbness. Denies: Focal weakness, Tingling Psychiatric: Denies: Anxiety, Depression, Homicidal Ideations, Suicidal Ideations Hematologic/ Lymphatic: Denies: Easy Bruising, Easy Bleeding VTE Information - Inpt Only VTE Present on Admission: No VTE Mechan Device Prophylaxis: SCD's VTE Pharm Prophylaxis ordered?: Yes Patient Problems: Active and Suspected Problems (Last Reviewed 11/22/17 @ 13:05 by Jaylin Veronica) TIA (transient ischemic attack) (Acute) Subjective: Seated upright in the ED, mildly fatigued appearing, mildly disheveled, no acute distress. Objective: Physical Examination: General: awake, alert, oriented x 3 and cooperative, seated upright in the ED bed in no apparent distress. Skin: normal color, turgor, no icterus, cyanosis. HEENT: AT/NC, EOMI, PERRLA, mildly dry MM, no carotid bruits or JVD noted, smeared makeup evident. Lungs: Mild diminished breath sounds bilateral bases, moderate effort, and occasional rare soft end expiratory wheeze, no rales or rhonchi. Heart: Regular rate and rhythm; no gallop, rub audible. Abdomen: soft, NTTP, ND, normal BS, + HM. Extremities: no cyanosis, clubbing, or edema. Neurological: patient awake, alert, oriented x 3; cognitive function appears baseline intact; pupils equally reactive to light and accomodation; cranial nerves II-XII grossly normal, moving all 4 extremities, no focal deficits, strength mildly globally decreased secondary to acute presentation, sensation intact, no recurrence aphasia noted, FTN and HTS appropriate, negative babinski. Psychiatric: affect appears fatigued, no acute evidence of depressive or anxiety feelings. - Physical Exam Vital Signs Temp Pulse Resp BP Pulse Ox 98.3 F 113 H 18 159/82 H 99 05/05/18 10:59 05/05/18 15:00 05/05/18 15:00 05/05/18 15:00 05/05/18 15:00 Oxygen Flow Rate (L/min) 1 Oxygen Delivery Method Nasal Cannula Weight: 147 lb 0.773 oz Body Mass Index (BMI) 24.5 Finger Stick Blood Glucose 92 Laboratory Tests Past 24 Hrs 05/05/18 05/05/18 05/05/18 11:10 11:10 11:10 WBC 5.3 RBC 4.65 Hgb 15.2 H Hct 46.2 MCV 99.4 H MCH 32.7 H MCHC 32.9 RDW 11.8 RDW Differential 42.6 Plt Count 286 MPV 9.0 Immature Gran % (Auto) 0.200 Neut % (Auto) 58.8 Lymph % (Auto) 29.3 [place] % (Auto) 11.1 H Eos % (Auto) 0.2 Baso % (Auto) 0.4 Absolute Neuts (auto) 3.1 Absolute Lymphs (auto) 1.56 Total Counted Not Reportable PT 12.1 INR 0.9 APTT 26.6 Sodium 129 L Potassium 3.6 Chloride 94 L Carbon Dioxide 28.0 Anion Gap 7 BUN 10 Creatinine 0.66 Estim Creat Clear Calc 41.72 Est GFR (MDRD) Af Amer 110 Est GFR (MDRD) Non-Af 91 BUN/Creatinine Ratio 15.1 Glucose 92 Hemoglobin A1c Calcium 8.8 Troponin I < 0.015 Triglycerides Cholesterol LDL Cholesterol VLDL Cholesterol HDL Cholesterol Whole Bld Vitamin B1 Vitamin B12 Ethyl Alcohol 05/05/18 05/05/18 05/05/18 11:10 14:32 14:32 WBC RBC Hgb Hct MCV MCH MCHC RDW RDW Differential Plt Count MPV Immature Gran % (Auto) Neut % (Auto) Lymph % (Auto) [place] % (Auto) Eos % (Auto) Baso % (Auto) Absolute Neuts (auto) Absolute Lymphs (auto) Total Counted PT INR APTT Sodium Potassium Chloride Carbon Dioxide Anion Gap BUN Creatinine Estim Creat Clear Calc Est GFR (MDRD) Af Amer Est GFR (MDRD) Non-Af BUN/Creatinine Ratio Glucose Hemoglobin A1c 5.5 Calcium Troponin I Triglycerides 75 Cholesterol 217 H LDL Cholesterol 136 H VLDL Cholesterol 15 HDL Cholesterol 66 Whole Bld Vitamin B1 Vitamin B12 Ethyl Alcohol 23.0 05/05/18 05/05/18 14:32 14:32 WBC RBC Hgb Hct MCV MCH MCHC RDW RDW Differential Plt Count MPV Immature Gran % (Auto) Neut % (Auto) Lymph % (Auto) [place] % (Auto) Eos % (Auto) Baso % (Auto) Absolute Neuts (auto) Absolute Lymphs (auto) Total Counted PT INR APTT Sodium Potassium Chloride Carbon Dioxide Anion Gap BUN Creatinine Estim Creat Clear Calc Est GFR (MDRD) Af Amer Est GFR (MDRD) Non-Af BUN/Creatinine Ratio Glucose Hemoglobin A1c Calcium Troponin I Triglycerides Cholesterol LDL Cholesterol VLDL Cholesterol HDL Cholesterol Whole Bld Vitamin B1 Pending Vitamin B12 1101 H Ethyl Alcohol POC Glucose 05/05/18 11:06 POC Glucose 92 Assessment/Plan All Active Problems (Last Reviewed 11/22/17 @ 13:05 by Jaylin Veronica) TIA (transient ischemic attack) (Acute) Rectal bleeding (Acute) The patient is a 77 y/o F w/ PMHx: EtOH Abuse, HTN, HLD, OA, Former Tobacco use who presents to the [facility] ED On 05/05/18 with history of onset ~ 1-1.5 hours PYTHON ARCHITECT in the ED expressive aphasia with then additionally paresthesias to the right face and right upper extremity primarily decreased sensation however this resolves upon presentation to the ED during the driving with initial NIH is 0. (1) Expressive aphasia, paresthesias concerning for TIA with prior evidence of CVA: ED workup included T 98.3, heart rate 91, BP initially 200/105, respiratory rate 18, 96% on room air, CBC with WC 5.3, hemoglobin 15.2, platelet 286 without left shift, unremarkable coags, BMP with sodium 129, chloride 94, troponin < 0.015, FLP this rate 75, cholesterol 217, LDL 136, HDL 66, VLDL 15, EKG with sinus rhythm with no acute evidence of ischemia, CT of the brain with chronic involutional changes with prior stable old lacunar infarct in the left basal ganglion with a stable focal calcified nodule in the right side of the cerebellar tentorium, chest x-ray with chronic ages with no acute cardiopulmonary findings, CTA Head w/ normal [place] without demonstrated aneurysm or hemodynamically significant stenosis, CTA Neck w/ nonstenotic calcific plaques in the left common carotid artery and at the right carotid bifurcation. 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 Patient evaluated by neurology in the ED. Will admit to PCU, will obtain MRI Brain, ECHO, PT/OT/Speech/Nutrition evaluation per protocol. Will continue Ne urology evaluation. Will allow permissive HTN for initial 24 hours per Neurology recommendation, maintain on asa/plavix x 21 days w/ single therapy planned following, add moderate statin w/ FLP as noted, fall precautions. Mag pending, TSH pending. (2) EtOH Abuse: Patient notes routine consumption of 4-5, 4-8 ounce glasses of rum per day. Last drink was morning on day of ED presentation. Will maintain on CIWA protocol, MVI, thiamine and folic acid. CM consulted for sobriety assist. Mag, Phos pending. (3) Hyponatremia, Suspect Chronic: Patient with mild hyponatremia, sodium 129, suspect likely chronic component given alcohol abuse history, gently hydrating given #1, repeat BMP in a.m. Mag, TSH pending as noted. (4) Hypertension: Permissive. (5) Hyperlipidemia: Not on regimen, adding moderate dose statin, FLP obtained in the ED as noted. (6) Former Tobacco use w/ Suspected Chronic COPD: ATC duonebs, PRN albuterol, HOB, IS parameters, encouraged continued tobacco cessation. (7) DVT Prophylaxis: SCDs, lovenox. Code Visit OBSV E&M: 87570 Initial observation care L3
--- NOTE | 2018-05-05 15:36 | NURSING ---
PCU OBS TIA WHITE
--- NOTE | 2018-05-05 16:07 | CASEMGMT ---
RN CM Assessment Introduced role of RN CM to patient and at bedside. Patient is alert, oriented and able to participate in RN CM Assessment. Care providers, pharmacy, and demographics verified. Presentation: Admitted for TIA. CC: Aphasia, Confusion. PCP: Dr Rustam Castro Specialists: None Preferred Pharmacy: [facility] Prescription Benefit: Yes LNOK: Rocky Kaiser Living Arrangements: Retired, lives with in a SS Home. Independent with Ambulation and ADL's. Transportation: Patient drives, to drive on [place]. DME: None, No preference on DME Company. HHC: None in past, No preference on Agency. SNF: None in past, No preference on Facility. DC PLAN: Home with no anticipated needs identified. CHARLES Martinez
--- NOTE | 2018-05-05 16:53 | ECHOD_ITS ---
Reason For Study: TIA/Stroke Procedure This was a 2D Doppler, Color Flow transthoracic echocardiogram. Exam performed portable in patient room. Left Ventricle Normal LV size. Left ventricular systolic function is normal. The estimated ejection fraction is 65 %. Stage 2 diastolic dysfunction. No regional wall motion abnormalities noted. Right Ventricle Normal RV size. Normal systolic function. Atria Normal left atrium. Normal right atrium. Bubble contrast study negative for right to left interatrial shunt. Mitral Valve Posterior leaflet mitral valve prolapse. Mild-Moderate (1-2+) anteriorly directed mitral valve insufficiency. Tricuspid Valve Normal tricuspid valve. Mild (1+) tricuspid valve insufficiency. Pulmonary artery systolic pressure is 34 mmHg. Aortic Valve The aortic valve is not well visualized. Pulmonic Valve The pulmonic valve is not well visualized. Great Vessels Normal aortic root. The pulmonary artery is normal size. Normal inferior vena cava. Pericardium/Pleural No pericardial effusion. Medication Performed a rapid injection of agitated mix of 9 cc saline and 1cc air to assess for atrial septal defect. MMode/2D Measurements & Calculations LVIDd: 4.4 cm IVSd: 1.2 cm Ao root diam: 3.2 cm LVIDs: 2.8 cm LVPWd: 0.99 cm RVDd: 3.3 cm FS: 36.7 % LAV(MOD-bp): 30.2 ml LVAd ap4: 20.9 cm2 SV(MOD-sp4): 35.8 ml LAV(MOD-bp) Indexed: 17.4 ml/m2 EDV(MOD-sp4): 50.6 ml LAV(MOD-sp2): 31.6 ml EDV(sp4-el): 52.9 ml LAV(MOD-sp4): 28.5 ml LVAs ap4: 10.3 cm2 ESV(MOD-sp4): 14.9 ml ESV(sp4-el): 15.0 ml EF(MOD-sp4): 70.6 % EF(sp4-el): 71.7 % SV(sp4-el): 38.0 ml LA A4 area: 12.5 cm2 LA dimension(2D): 3.5 cm RA A4 area: 11.2 cm2 Doppler Measurements & Calculations MV E max kt: 106.8 cm/sec Lat Peak E' Kt: 7.0 cm/sec Med Peak E' Kt: 7.7 cm/sec MV A max kt: 83.0 cm/sec E/E' lat: 15.2 E/E' med: 13.9 MV E/A: 1.3 Ao V2 max: 163.7 cm/sec LV V1 max: 137.0 cm/sec PA V2 max: 69.2 cm/sec Ao max P.7 mmHg LV V1 max P.5 mmHg Ao V2 mean: 117.2 cm/sec Ao mean P.0 mmHg Ao V2 VTI: 30.5 cm TR max kt: 279.6 cm/sec TR max P.3 mmHg Interpretation Summary Normal LV size. Left ventricular systolic function is normal. The estimated ejection fraction is 65 %. Stage 2 diastolic dysfunction. Mild-Moderate (1-2+) anteriorly directed mitral valve insufficiency. Posterior leaflet mitral valve prolapse. Pulmonary artery systolic pressure is 34 mmHg. Ordering Physician: Gema Allen Referring Physician: Rustam Castro Performed By: Cary Alan, KARYNA, RVT
--- NOTE | 2018-05-05 16:53 | MRI_ITS ---
We are attempting to reach Gema Allen to discuss findings. An addendum with communication details will be sent when the communication is complete. HISTORY: CVA, aphasia EXAM/TECHNIQUE: MR Brain W/O Contrast: COMPARISON: CTA and CT head earlier same date. MRI brain 05/25/17. FINDINGS: # of images incl. paperwork: 278 No acute infarct, hemorrhage, or new mass. Moderate chronic microangiopathic change in the white matter. Focal chronic high T2 signal in the left greater than right globus pallidus. Unchanged 1 cm right tentorial meningioma with minimal mass-effect upon the overlying right occipital lobe, no edema. No acute osseous abnormality, paranasal sinuses and mastoid air cells patent. Major flow voids preserved. Bilateral intracranial ICA aneurysms are better seen on the previous CTA head. MRI/Brain without Contrast IMPRESSION: No acute findings. Moderate chronic microangiopathic change in the white matter. Focal chronic high T2 signal in the left or right globus pallidus; suggestive of sequela of remote hypoxic injury. Bilateral intracranial ICA aneurysms are better seen on the previous CTA head. at 2009 Reported and signed by: Cecil Kinney MD Electronically Signed: Cecil Kinney, at 20:08 EST Tel , Service support ,
[2018-05-05] MEDS: 0.9% Normal Saline 1,000 ML 100 ML IV (17:41)
[2018-05-05 17:54] LABS: Phosphorus 2.8 mg/dL (2.5-4.9)
[2018-05-05] MEDS: LORazepam 2 MG/ML Syringe IV (17:56)
[2018-05-05] MEDS: Thiamine Hydrochloride 100 MG Tablet PO (17:56)
[2018-05-05] MEDS: Ipratropium/Albuterol Sulfate 3 ML AMPUL.NEB INHALATION (19:45)
[2018-05-05] MEDS: Famotidine 20 MG Tablet PO (21:56)
[2018-05-05] MEDS: Atorvastatin Calcium 40 MG Tablet PO (21:56)
[2018-05-05] MEDS: 0.9% NaCl Peripheral Flush Adult/Peds IV (21:57)
--- NOTE | 2018-05-05 22:49 | PCM.PN.BLA ---
Progress Note I got a call from [facility] to call back about a critical finding. I called back and I spoke to Dr. 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 I contacted Dr. Rodríguez and I informed them about the findings of CTA of the head after revision and the MRI brain. He recommended transfer the patient to a tertiary care center for neurosurgical evaluation. I contacted [facility] transfer line and I spoke with Dr. Johnston who is the neurosurgeon and he states that the those aneurysms are small and incidental findings according to my reading of the CTA head and MRI brain to him and he stated that there is no need to transfer the patient for neurosurgical evaluation at this time and he can see her as outpatient in his office after discharge. He stated that the patient needs workup for stroke. I contacted Dr. Rodríguez back and I informed him about the decision of the neurosurgeon at [facility]. I called the patient's daughter Margy and I informed her that we are not going to transfer the patient to [facility].
--- NOTE | 2018-05-05 22:54 | PN_ITS ---
Progress Note I got a call from [facility] to call back about a critical finding. I called back and I spoke to Dr. 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 I contacted Dr. Rodríguez and I informed them about the findings of CTA of the head after revision and the MRI brain. He recommended transfer the patient to a tertiary care center for neurosurgical evaluation. I contacted [facility] transfer line and I spoke with Dr. Johnston who is the neurosurgeon and he states that the those aneurysms are small and incidental findings according to my reading of the CTA head and MRI brain to him and he stated that there is no need to transfer the patient for neurosurgical evaluation at this time and he can see her as outpatient in his office after discharge. He stated that the patient needs workup for stroke. I contacted Dr. Rodríguez back and I informed him about the decision of the neurosurgeon at [facility]. I called the patient's daughter Margy and I informed her that we are not going to transfer the patient to [facility].
[2018-05-06] VITALS (8 sets, daily range): BP systolic 119–141; BP diastolic 59–69; PULSE 79–112; RESP 16–18; TEMP 36.6–37.1; O2SAT 62–98
[2018-05-06 02:16] LABS: Amphetamine Urine VISTA NEGATIVE (<1000 ng/mL); Barbiturate Urine VISTA NEGATIVE (< 200 ng/mL); Benzodiazepine Urine VISTA NEGATIVE (< 200 ng/mL); Cocaine Urine VISTA NEGATIVE (< 300 ng/mL); Ecstacy Urine VISTA NEGATIVE (< 500 ng/mL); Methadone Urine VISTA NEGATIVE (< 300 ng/mL); PCP Urine VISTA NEGATIVE (< 25 ng/mL); THC Urine VISTA NEGATIVE (< 50 ng/mL); Vista UDS pH Range 6
[2018-05-06] MEDS: 0.9% Normal Saline 1,000 ML 100 ML IV (05:47)
[2018-05-06] MEDS: Ipratropium/Albuterol Sulfate 3 ML AMPUL.NEB INHALATION (06:54)
[2018-05-06] MEDS: Famotidine 20 MG Tablet PO (09:16)
[2018-05-06] MEDS: Enoxaparin 40 MG/0.4 ML Syringe SC (09:16)
[2018-05-06] MEDS: Clopidogrel Bisulfate 75 MG Tablet PO (09:16)
[2018-05-06] MEDS: Thiamine Hydrochloride 100 MG Tablet PO (09:16)
[2018-05-06] MEDS: Aspirin 81 MG TAB.CHEW PO (09:17)
[2018-05-06] MEDS: Folic Acid 1 MG Tablet PO (09:17)
[2018-05-06] MEDS: Multivitamins,Ther W-Minerals Tablet 1 TABLET PO (09:17)
--- NOTE | 2018-05-06 10:07 | CT_ITS ---
STUDY: CT CHEST WITH CONTRAST REASON FOR EXAM: Female, 77 years old. Possible lung nodule RADIATION DOSAGE (If Supplied By Facility): CTDIvol = ( 10.65 ) mGy, DLP = ( 430.03 ) mGycm TECHNIQUE: Transaxial imaging was performed following intravenous administration of 100 mL Isovue 300. Individualized dose optimization techniques were used for this CT. COMPARISON: 06/01/2017 FINDINGS: Oval-shaped noncalcified nodule with indistinct margins and mild reticular borders on axial image 21 is stable compared to 2017 CT. The nodule measures 4 x 5 mm (solid portion), stable when measured on all exams in similar fashion. The entire region is stable when comparing coronal image 140 on the current exam with coronal image 134 of 05/24/2017. However, there is a new nodule (posterior inferior) on axial image 23, coronal image 148 measuring 4 x 4 mm. Stable fibrotic band in the right lower lobe. No additional pulmonary nodules identified. There is no demonstrated pleural abnormality. Normal heart and pericardium. Coronary artery calcifications are present. Small nodular density adjacent to the ascending thoracic aorta measuring 1.5 x 1.3 cm with some triangular borders may represent residual thymic tissue but has not changed significantly since 2017 suggesting a benign process. Normal hilar regions. Normal enhanced pulmonary arteries. There is atherosclerotic calcification of the aortic arch with tortuosity and elongation of the aortic arch and descending thoracic aorta. There are multi-level degenerative changes of the thoracic spine. There is no demonstrated abnormality of the visualized upper abdomen. CT/Chest WITH Contrast IMPRESSION: 1. New 4 mm noncalcified nodule in the left upper lobe. Follow-up chest CT in 3 months recommended. 2. Stable 4 x 5 mm nodule in the left upper lobe (similar since 07/07/2016). Electronically Signed: Neo Prather MD at 10:45 EST , Service support ,
[2018-05-06 10:45] LABS: Hematocrit 39.3 % (37-47); Hemoglobin 12.9 g/dl (12.0-15.0); Mean Corp Hgb Conc 32.8 g/gl (32-36); Mean Corpuscular Hgb 33.6 pg (27.0-32.0); Mean Corpuscular Volume 102.3 fL (81-99); Mean Platelet Vol. 9.2 fl (6.2-12.0); Platelet Count 266 K/mm3 (150-450); RBC Distribution Width CV 11.7 % (11.6-14.6); RBC Distribution Width SD 43.2 fl (35.1-43.9); Red Blood Count 3.84 M/mm3 (4.2-5.4); White Blood Count 5.7 K/mm3 (4.4-11.0)
[2018-05-06 10:46] LABS: Scan Indicated on CBC? Y/N NO
[2018-05-06 11:16] LABS: Anion Gap 6 (5-15); BUN 14 mg/dL (7-18); BUN/Creat Ratio 19.2 RATIO (10-20); Chloride 99 mmol/L (98-107); Creatinine, Serum 0.73 mg/dL (0.55-1.02); EST Glomerular Filtration Rate 82 mL/min (>60); Est Glom Filt Rate - Afr Amer 99 mL/min (>60); Estimated Creatinine Clearance 41.72 ml/min; Glucose 154 mg/dL (74-106); Magnesium 1.9 mg/dL (1.6-2.6); Potassium 3.7 mmol/L (3.5-5.1); Sodium Level 133 mmol/L (136-145)
--- NOTE | 2018-05-06 13:08 | DCINST_ITS ---
- Discharge Diagnoses Current Active Problems: Current Active and Chronic Problems (Last Reviewed 11/22/17 @ 13:05 by Jaylin Veronica) TIA (transient ischemic attack) (Acute) HTN (hypertension) (Chronic) HLD (hyperlipidemia) (Chronic) ETOH abuse (Chronic) You will use the following diet at home:: Cardiac Discharge Activity: Return to Normal Activity Call your doctor if you observe: Numbness or Tingling, Shortness of breath, Dizziness, Fainting spells, Chest pain Allergies/Adverse Reactions: Allergies No Known Allergies Allergy (Verified 05/05/18 11:01) Medications to take at Discharge antiarthritic combination no.2 900 mg tablet 900 mg PO BID tab 11/22/17 lisinopril 40 mg tablet 40 mg PO DAILY 11/22/17 Calcium Carbonate/Vitamin D3 [Calcium 600 + Vit D Tablet] 2 tab PO DAILY 05/05/18 Levofloxacin 500 mg PO DAILY 05/05/18 Multivitamin with Minerals [Multiple Vitamin] 1 tab PO DAILY 05/05/18 Vitamin B Complex 1 each PO DAILY 05/05/18 Aspirin [Aspirin, Baby] 81 mg PO DAILY@0800 #30 tab.chew 05/06/18 Atorvastatin Calcium [Lipitor] 40 mg PO QHS #30 tablet 05/06/18 Clopidogrel Bisulfate [Plavix] 75 mg PO DAILY #21 tablet 05/06/18 Thiamine Hydrochloride [Vitamin B1] 100 mg PO BIDCM #60 tablet 05/06/18 The following prescriptions were given: Aspirin [Aspirin, Baby] 81 mg PO DAILY@0800 #30 tab.chew Atorvastatin Calcium [Lipitor] 40 mg PO QHS #30 tablet Clopidogrel Bisulfate [Plavix] 75 mg PO DAILY #21 tablet Thiamine Hydrochloride [Vitamin B1] 100 mg PO BIDCM #60 tablet Primary Care Physician: Rustam Castro MD [Primary Care Provider] - Please follow up with your Primary Care Physician in: 1 Week Test Results: Test results from this visit will be discussed in further detail at your follow- up appointment, if applicable. Please Follow Up With: Abhijit Lynn DO - Pulmonary Medicine When: 1-2 Weeks, establish for monitoring of lung nodules/workup shortness breath Please Follow Up With: Dr. Johnston - Neurosurgery When: 1-2 weeks Please Follow Up With: Billy Rodríguez MD - Neurologist When: 2-3 Weeks Proposed Discharge Date: 05/06/18
--- NOTE | 2018-05-06 13:09 | PCM.DC.SUM ---
<Karlee Sharpe - Last Filed: 05/06/18 13:26> Discharge Date and Diagnosis Date of Admission: 05/05/18 Date of Discharge: 05/06/18 - Primary Discharge Diagnosis Active and Suspected Problems (Last Reviewed 11/22/17 @ 13:05 by Jaylin Veronica) 1. TIA, CVA ruled out 2. Mild hyponatremia 3. Carotid artery aneurysm, incidental finding 4. Chronic stable left upper lobe nodule with additional new left upper lobe nodule 5. Suspected COPD 6. Alcohol abuse 7. Hypertension 8. Hyperlipidemia 9. Former tobacco use - Secondary Discharge Diagnosis Chronic Problems (Last Reviewed 11/22/17 @ 13:05 by Jaylin Veronica) HTN (hypertension) (Chronic) HLD (hyperlipidemia) (Chronic) ETOH abuse (Chronic) Hospital Course and Treatment Imaging Results: Diagnostic Data Brain CT 05/05/18 11:10 IMPRESSION: Chronic involutional changes of the brain. 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 Stable focal calcified nodule in the right side of the cerebellar tentorium. Electronically Signed: Liu Newman, at 12:29 EST , Service support , Chest X-Ray 05/05/18 11:10 IMPRESSION: Hyperinflation. No acute abnormality is seen. Electronically Signed: Liu Newman, at 12:30 EST , Service support , Head CTA 05/05/18 13:04 IMPRESSION: Normal [place] without a demonstrated aneurysm or hemodynamically significant stenosis. Electronically Signed: Liu Newman, at 14:32 EST , Service support , ADDENDUM: 05/05/18 2115 Neck CTA 05/05/18 13:04 IMPRESSION: Nonstenotic calcific plaques in the left common carotid artery and at the right carotid bifurcation. Electronically Signed: Liu Newman, at 14:39 EST , Service support , Brain MRI 05/05/18 16:53 IMPRESSION: No acute findings. Moderate chronic microangiopathic change in the white matter. Focal chronic high T2 signal in the left or right globus pallidus; suggestive of sequela of remote hypoxic injury. Bilateral intracranial ICA aneurysms are better seen on the previous CTA head. at 2009 Reported and signed by: Cecil Kinney MD Electronically Signed: Cecil Kinney, at 20:08 EST Tel , Service support , ADDENDUM: 05/05/182044 IMPRESSION: No acute findings. Moderate chronic microangiopathic change in the white matter. Focal chronic high T2 signal in the left or right globus pallidus; suggestive of sequela of remote hypoxic injury. Bilateral intracranial ICA aneurysms are better seen on the previous CTA head. at 2009 Reported and signed by: Cecil Kinney MD N.B. : The above information has been verbally conveyed by Cecil Kinney to dr darren MD, on 05/05/2018 20:38:13 (ET). Electronically Signed: Cecil Kinney, at 20:08 EST Tel , Service support , Chest CT 05/06/18 10:07 IMPRESSION: 1. New 4 mm noncalcified nodule in the left upper lobe. Follow-up chest CT in 3 months recommended. 2. Stable 4 x 5 mm nodule in the left upper lobe (similar since 07/07/2016). Electronically Signed: Neo Prather MD at 10:45 EST , Service support , Dr. Rodríguez- Neurology Operations: None Procedures: 2-D Echocardiogram Summary of Care Provided: The patient is a 77 year old F admitted 05/05/2018 due to confusion, aphasia. 1. TIA, CVA ruled out-symptoms resolved prior to admission. MRI of brain without acute infarct, hemorrhage or mass. Neurology consulted during admission. Patient will continue aspirin, Plavix for 21 days followed by aspirin only. Continue statin. Physical therapy recommended outpatient therapy. Patient declined. Echocardiogram showed an EF of 65%, stage II diastolic dysfunction, mild to moderate mitral valve insufficiency, posterior leaflet mitral valve prolapse, pulmonary artery systolic pressure 34 mmHg. Patient will follow up with neurology in 2-3 weeks. 2. Mild hyponatremia-suspect chronic secondary to chronic alcohol use. Improved with hydration. 3. Carotid artery aneurysm, incidental finding-CT of head showed 5 mm medially dilated right distal cavernous carotid artery aneurysm and 6 mm medially directed left distal cavernous carotid artery aneurysm without evidence of rupture or acute hemorrhage. Neurology initially recommended transfer to tertiary care center for neurosurgery evaluation. [facility] was contacted by maintenance technician 3rd shift hospitalist who spoke with Dr. Johnston. Neurosurgery felt aneurysms are small and incidental and there was found to be no need for transfer. Patient will follow up with neurosurgery as outpatient. 4. Chronic stable left upper lobe nodule with additional new left upper lobe nodule-patient's CT of chest from May 2017 showed stable nodule in the left upper lobe. Repeat chest CT during admission showed stable nodule in the left upper lobe as well as new 4 mm noncalcified nodule in the left upper lobe. Recommend repeat CT of chest in 3 months. Referred to pulmonary medicine, Dr. Lynn or Dr. Armenta at discharge for follow-up. 5. Suspected COPD-patient has tobacco use history. Reports chronic dyspnea. Recommend follow-up with pulmonary medicine as outpatient for pulmonary function testing. 6. Alcohol abuse-encouraged alcohol cessation. Thiamine supplementation at discharge. 7. Hypertension-stable, continue home lisinopril regimen. 8. Hyperlipidemia-lipid panel elevated. Continue statin. 9. Former tobacco use-encouraged continued tobacco cessation. Recommended pulmonary follow-up as noted above. Patient seen and examined prior to discharge. Physical assessment as noted below. Patient is stable for discharge with follow up recommendations as noted above. This patient was seen by LARY Acosta under the supervision of Dr. Ly. - Physical Exam General: Alert, Oriented x3, Cooperative HEENT: Atraumatic, PERRLA, EOMI, Normocephalic Neck: Supple, No JVD, Negative Carotid Bruits Lungs: Diminished, - - Occasional faint wheezing Cardiovascular: Regular rate, Regular Rhythm, Normal S1, Normal S2, No murmurs Abdomen: Bowel Sounds Present, Soft, Non Tender, Non-Distended Extremities: No clubbing, No cyanosis, No edema, Capillary Refill Less than 3 Seconds Skin: No rashes, No breakdown Musculoskeletal: No Tenderness to Palpation of Joints or Extremities Neurological: Cranial nerves II-XII grossly intact, Neuro grossly intact Psych/Mental Status: Normal Affect, Appropriate Vital Signs Temp Pulse Resp BP Pulse Ox 98.0 F 96 16 141/69 H 98 05/06/18 09:07 05/06/18 10:59 05/06/18 09:07 05/06/18 09:07 05/06/18 09:07 Oxygen Flow Rate (L/min) 2 Oxygen Delivery Method Room Air Weight: 142 lb 6.698 oz Body Mass Index (BMI) 23.7 Finger Stick Blood Glucose 92 Intake and Output for Last 24 Hours 05/04/18 05/05/18 05/06/18 23:59 23:59 23:59 Intake Total 1384 / 1384 Balance 1384 / 1384 Laboratory Tests Past 24 Hrs 05/05/18 05/05/18 05/05/18 14:32 14:32 14:32 WBC RBC Hgb Hct MCV MCH MCHC RDW RDW Differential Plt Count MPV Sodium Potassium Chloride Carbon Dioxide Anion Gap BUN Creatinine Estim Creat Clear Calc Est GFR (MDRD) Af Amer Est GFR (MDRD) Non-Af BUN/Creatinine Ratio Glucose Hemoglobin A1c 5.5 Calcium Phosphorus Magnesium Triglycerides 75 Cholesterol 217 H LDL Cholesterol 136 H VLDL Cholesterol 15 HDL Cholesterol 66 Whole Bld Vitamin B1 Vitamin B12 1101 H TSH Urine Opiates Screen Urine Methadone Screen Ur Barbiturates Screen Ur Phencyclidine Scrn Ur Amphetamines Screen U Methamphetamin-MDMA U Benzodiazepines Scrn Urine Cocaine Screen U Cannabinoids Screen Ur Drug Screen Comment 05/05/18 05/05/18 05/06/18 14:32 14:32 01:20 WBC RBC Hgb Hct MCV MCH MCHC RDW RDW Differential Plt Count MPV Sodium Potassium Chloride Carbon Dioxide Anion Gap BUN Creatinine Estim Creat Clear Calc Est GFR (MDRD) Af Amer Est GFR (MDRD) Non-Af BUN/Creatinine Ratio Glucose Hemoglobin A1c Calcium Phosphorus 2.8 Magnesium 2.0 Triglycerides Cholesterol LDL Cholesterol VLDL Cholesterol HDL Cholesterol Whole Bld Vitamin B1 Pending Vitamin B12 TSH 0.80 Urine Opiates Screen NEGATIVE Urine Methadone Screen NEGATIVE Ur Barbiturates Screen NEGATIVE Ur Phencyclidine Scrn NEGATIVE Ur Amphetamines Screen NEGATIVE U Methamphetamin-MDMA NEGATIVE U Benzodiazepines Scrn NEGATIVE Urine Cocaine Screen NEGATIVE U Cannabinoids Screen NEGATIVE Ur Drug Screen Comment 05/06/18 05/06/18 10:30 10:30 WBC 5.7 RBC 3.84 L Hgb 12.9 Hct 39.3 MCV 102.3 H MCH 33.6 H MCHC 32.8 RDW 11.7 RDW Differential 43.2 Plt Count 266 MPV 9.2 Sodium 133 L Potassium 3.7 Chloride 99 Carbon Dioxide 28.0 Anion Gap 6 BUN 14 Creatinine 0.73 Estim Creat Clear Calc 41.72 Est GFR (MDRD) Af Amer 99 Est GFR (MDRD) Non-Af 82 BUN/Creatinine Ratio 19.2 Glucose 154 H Hemoglobin A1c Calcium 8.0 L Phosphorus Magnesium 1.9 Triglycerides Cholesterol LDL Cholesterol VLDL Cholesterol HDL Cholesterol Whole Bld Vitamin B1 Vitamin B12 TSH Urine Opiates Screen Urine Methadone Screen Ur Barbiturates Screen Ur Phencyclidine Scrn Ur Amphetamines Screen U Methamphetamin-MDMA U Benzodiazepines Scrn Urine Cocaine Screen U Cannabinoids Screen Ur Drug Screen Comment Discharge Diet: Low fat/ Low Cholesterol Discharge Activity: Return to Normal Activity Call your doctor if you observe: Numbness or Tingling, Shortness of breath, Dizziness, Fainting spells, Chest pain Home Medications: Medications to take at Discharge antiarthritic combination no.2 900 mg tablet 900 mg PO BID tab 11/22/17 lisinopril 40 mg tablet 40 mg PO DAILY 11/22/17 Calcium Carbonate/Vitamin D3 [Calcium 600 + Vit D Tablet] 2 tab PO DAILY 05/05/18 Levofloxacin 500 mg PO DAILY 05/05/18 Multivitamin with Minerals [Multiple Vitamin] 1 tab PO DAILY 05/05/18 Vitamin B Complex 1 each PO DAILY 05/05/18 Aspirin [Aspirin, Baby] 81 mg PO DAILY@0800 #30 tab.chew 05/06/18 Atorvastatin Calcium [Lipitor] 40 mg PO QHS #30 tablet 05/06/18 Clopidogrel Bisulfate [Plavix] 75 mg PO DAILY #21 tablet 05/06/18 Thiamine Hydrochloride [Vitamin B1] 100 mg PO BIDCM #60 tablet 05/06/18 Following Prescrptions Were Given to Patient: Aspirin [Aspirin, Baby] 81 mg PO DAILY@0800 #30 tab.chew Atorvastatin Calcium [Lipitor] 40 mg PO QHS #30 tablet Clopidogrel Bisulfate [Plavix] 75 mg PO DAILY #21 tablet Thiamine Hydrochloride [Vitamin B1] 100 mg PO BIDCM #60 tablet Primary Care Physician: Rustam Catsro MD [Primary Care Provider] - Please follow up with your Primary Care Physician in: 1 Week Please Follow Up With: Abhijit Lynn DO - Pulmonary Medicine When: 1-2 Weeks, establish for monitoring of lung nodules/workup shortness breath Please Follow Up With: Dr. Johnston - Neurosurgery When: 1-2 weeks Please Follow Up With: Billy Rodríguez MD - Neurologist When: 2-3 Weeks Disposition: Home Minutes spent on discharge:: 35 Patient Condition:: Stable Medical Necessity - Tobacco Use Smoking Status: Former smoker Tobacco Use: Cigarettes Meaningful Use Info Meaningful Use Diagnoses (Choose all that apply): None applicable <Curry Ly - Last Filed: 05/06/18 13:50> Discharge Date and Diagnosis - Secondary Discharge Diagnosis Chronic Problems (Last Reviewed 11/22/17 @ 13:05 by Jaylin Veronica) HTN (hypertension) (Chronic) HLD (hyperlipidemia) (Chronic) ETOH abuse (Chronic) Hospital Course and Treatment Imaging Results: 05/06/18 10:07 CT Chest [Chest WITH Contrast] [CT] Urgent Summary of Care Provided: This patient was seen in conjunction with LARY Acosta . I have independently interviewed and examined the patient and reviewed pertinent historical, laboratory, and other data. Please refer to LARY Acosta note for details of this patient's presentation, findings, and recommendations. I have reviewed LARY Acosta note and concur with documented findings. In brief, patient is a 77-year-old female admitted with transient aphasia as well as confusion 1. Transient ischemic attack 2. Carotid artery aneurysm 3. Lung nodule 4. COPD 5. Essential hypertension 6. Dyslipidemia 7. Hyponatremia Hospital course: As documented above - Physical Exam Vital Signs Temp Pulse Resp BP Pulse Ox 97.8 F 112 H 18 126/60 H 93 03/02/19 13:26 05/06/18 13:26 05/06/18 13:26 05/06/18 13:26 05/06/18 13:26 Oxygen Flow Rate (L/min) 2 Oxygen Delivery Method Room Air Weight: 64.6 kg Body Mass Index (BMI) 23.7 Finger Stick Blood Glucose 92 Intake and Output for Last 24 Hours 05/04/18 05/05/18 05/06/18 23:59 23:59 23:59 Intake Total 1384 / 1384 Balance 1384 / 1384 Laboratory Tests Past 24 Hrs 05/05/18 05/05/18 05/05/18 14:32 14:32 14:32 WBC RBC Hgb Hct MCV MCH MCHC RDW RDW Differential Plt Count MPV Sodium Potassium Chloride Carbon Dioxide Anion Gap BUN Creatinine Estim Creat Clear Calc Est GFR (MDRD) Af Amer Est GFR (MDRD) Non-Af BUN/Creatinine Ratio Glucose Hemoglobin A1c 5.5 Calcium Phosphorus Magnesium Triglycerides 75 Cholesterol 217 H LDL Cholesterol 136 H VLDL Cholesterol 15 HDL Cholesterol 66 Whole Bld Vitamin B1 Vitamin B12 1101 H TSH Urine Opiates Screen Urine Methadone Screen Ur Barbiturates Screen Ur Phencyclidine Scrn Ur Amphetamines Screen U Methamphetamin-MDMA U Benzodiazepines Scrn Urine Cocaine Screen U Cannabinoids Screen Ur Drug Screen Comment 05/05/18 05/05/18 05/06/18 14:32 14:32 01:20 WBC RBC Hgb Hct MCV MCH MCHC RDW RDW Differential Plt Count MPV Sodium Potassium Chloride Carbon Dioxide Anion Gap BUN Creatinine Estim Creat Clear Calc Est GFR (MDRD) Af Amer Est GFR (MDRD) Non-Af BUN/Creatinine Ratio Glucose Hemoglobin A1c Calcium Phosphorus 2.8 Magnesium 2.0 Triglycerides Cholesterol LDL Cholesterol VLDL Cholesterol HDL Cholesterol Whole Bld Vitamin B1 Pending Vitamin B12 TSH 0.80 Urine Opiates Screen NEGATIVE Urine Methadone Screen NEGATIVE Ur Barbiturates Screen NEGATIVE Ur Phencyclidine Scrn NEGATIVE Ur Amphetamines Screen NEGATIVE U Methamphetamin-MDMA NEGATIVE U Benzodiazepines Scrn NEGATIVE Urine Cocaine Screen NEGATIVE U Cannabinoids Screen NEGATIVE Ur Drug Screen Comment 05/06/18 05/06/18 10:30 10:30 WBC 5.7 RBC 3.84 L Hgb 12.9 Hct 39.3 MCV 102.3 H MCH 33.6 H MCHC 32.8 RDW 11.7 RDW Differential 43.2 Plt Count 266 MPV 9.2 Sodium 133 L Potassium 3.7 Chloride 99 Carbon Dioxide 28.0 Anion Gap 6 BUN 14 Creatinine 0.73 Estim Creat Clear Calc 41.72 Est GFR (MDRD) Af Amer 99 Est GFR (MDRD) Non-Af 82 BUN/Creatinine Ratio 19.2 Glucose 154 H Hemoglobin A1c Calcium 8.0 L Phosphorus Magnesium 1.9 Triglycerides Cholesterol LDL Cholesterol VLDL Cholesterol HDL Cholesterol Whole Bld Vitamin B1 Vitamin B12 TSH Urine Opiates Screen Urine Methadone Screen Ur Barbiturates Screen Ur Phencyclidine Scrn Ur Amphetamines Screen U Methamphetamin-MDMA U Benzodiazepines Scrn Urine Cocaine Screen U Cannabinoids Screen Ur Drug Screen Comment Code Visit OBSV E&M: [id number] Observation care discharge
--- NOTE | 2018-05-06 13:15 | DS.PCM_ITS ---
<Karlee Sharpe - Last Filed: 05/06/18 13:26> Discharge Date and Diagnosis Date of Admission: 05/05/18 Date of Discharge: 05/06/18 - Primary Discharge Diagnosis Active and Suspected Problems (Last Reviewed 11/22/17 @ 13:05 by Jaylin Veronica) 1. TIA, CVA ruled out 2. Mild hyponatremia 3. Carotid artery aneurysm, incidental finding 4. Chronic stable left upper lobe nodule with additional new left upper lobe nodule 5. Suspected COPD 6. Alcohol abuse 7. Hypertension 8. Hyperlipidemia 9. Former tobacco use - Secondary Discharge Diagnosis Chronic Problems (Last Reviewed 11/22/17 @ 13:05 by Jaylin Veronica) HTN (hypertension) (Chronic) HLD (hyperlipidemia) (Chronic) ETOH abuse (Chronic) Hospital Course and Treatment Imaging Results: Diagnostic Data Brain CT 05/05/18 11:10 IMPRESSION: Chronic involutional changes of the brain. 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 Stable focal calcified nodule in the right side of the cerebellar tentorium. Electronically Signed: Liu Newman, at 12:29 EST , Service support , Chest X-Ray 05/05/18 11:10 IMPRESSION: Hyperinflation. No acute abnormality is seen. Electronically Signed: Liu Newman, at 12:30 EST , Service support , Head CTA 05/05/18 13:04 IMPRESSION: Normal [place] without a demonstrated aneurysm or hemodynamically significant stenosis. Electronically Signed: Liu Newman, at 14:32 EST , Service support , ADDENDUM: 05/05/18 2115 Neck CTA 05/05/18 13:04 IMPRESSION: Nonstenotic calcific plaques in the left common carotid artery and at the right carotid bifurcation. Electronically Signed: Liu Newman, at 14:39 EST , Service support , Brain MRI 05/05/18 16:53 IMPRESSION: No acute findings. Moderate chronic microangiopathic change in the white matter. Focal chronic high T2 signal in the left or right globus pallidus; suggestive of sequela of remote hypoxic injury. Bilateral intracranial ICA aneurysms are better seen on the previous CTA head. at 2009 Reported and signed by: Cecil Kinney MD Electronically Signed: Cecil Kinney, at 20:08 EST Tel , Service support , ADDENDUM: 05/05/182044 IMPRESSION: No acute findings. Moderate chronic microangiopathic change in the white matter. Focal chronic high T2 signal in the left or right globus pallidus; suggestive of sequela of remote hypoxic injury. Bilateral intracranial ICA aneurysms are better seen on the previous CTA head. at 2009 Reported and signed by: Cecil Kinney MD N.B. : The above information has been verbally conveyed by Cecil Kinney to dr darren MD, on 05/05/2018 20:38:13 (ET). Electronically Signed: Cecil Kinney, at 20:08 EST Tel , Service support , Chest CT 05/06/18 10:07 IMPRESSION: 1. New 4 mm noncalcified nodule in the left upper lobe. Follow-up chest CT in 3 months recommended. 2. Stable 4 x 5 mm nodule in the left upper lobe (similar since 07/07/2016). Electronically Signed: Neo Prather MD at 10:45 EST , Service support , Dr. Rodríguez- Neurology Operations: None Procedures: 2-D Echocardiogram Summary of Care Provided: The patient is a 77 year old F admitted 05/05/2018 due to confusion, aphasia. 1. TIA, CVA ruled out-symptoms resolved prior to admission. MRI of brain without acute infarct, hemorrhage or mass. Neurology consulted during admission. Patient will continue aspirin, Plavix for 21 days followed by aspirin only. Continue statin. Physical therapy recommended outpatient therapy. Patient declined. Echocardiogram showed an EF of 65%, stage II diastolic dysfunction, mild to moderate mitral valve insufficiency, posterior leaflet mitral valve prolapse, pulmonary artery systolic pressure 34 mmHg. Patient will follow up with neurology in 2-3 weeks. 2. Mild hyponatremia-suspect chronic secondary to chronic alcohol use. Improved with hydration. 3. Carotid artery aneurysm, incidental finding-CT of head showed 5 mm medially dilated right distal cavernous carotid artery aneurysm and 6 mm medially directed left distal cavernous carotid artery aneurysm without evidence of rupture or acute hemorrhage. Neurology initially recommended transfer to tertiary care center for neurosurgery evaluation. [facility] was contacted by shift supervisor film processing hospitalist who spoke with Dr. Johnston. Neurosurgery felt aneurysms are small and incidental and there was found to be no need for transfer. Patient will follow up with neurosurgery as outpatient. 4. Chronic stable left upper lobe nodule with additional new left upper lobe nodule-patient's CT of chest from May 2017 showed stable nodule in the left upper lobe. Repeat chest CT during admission showed stable nodule in the left upper lobe as well as new 4 mm noncalcified nodule in the left upper lobe. Recommend repeat CT of chest in 3 months. Referred to pulmonary medicine, Dr. Lynn or Dr. Armenta at discharge for follow-up. 5. Suspected COPD-patient has tobacco use history. Reports chronic dyspnea. Re commend follow-up with pulmonary medicine as outpatient for pulmonary function testing. 6. Alcohol abuse-encouraged alcohol cessation. Thiamine supplementation at discharge. 7. Hypertension-stable, continue home lisinopril regimen. 8. Hyperlipidemia-lipid panel elevated. Continue statin. 9. Former tobacco use-encouraged continued tobacco cessation. Recommended pulmonary follow-up as noted above. Patient seen and examined prior to discharge. Physical assessment as noted below. Patient is stable for discharge with follow up recommendations as noted above. This patient was seen by LARY Acosta under the supervision of Dr. Ly. - Physical Exam General: Alert, Oriented x3, Cooperative HEENT: Atraumatic, PERRLA, EOMI, Normocephalic Neck: Supple, No JVD, Negative Carotid Bruits Lungs: Diminished, - - Occasional faint wheezing Cardiovascular: Regular rate, Regular Rhythm, Normal S1, Normal S2, No murmurs Abdomen: Bowel Sounds Present, Soft, Non Tender, Non-Distended Extremities: No clubbing, No cyanosis, No edema, Capillary Refill Less than 3 Seconds Skin: No rashes, No breakdown Musculoskeletal: No Tenderness to Palpation of Joints or Extremities Neurological: Cranial nerves II-XII grossly intact, Neuro grossly intact Psych/Mental Status: Normal Affect, Appropriate Vital Signs Temp Pulse Resp BP Pulse Ox 98.0 F 96 16 141/69 H 98 05/06/18 09:07 05/06/18 10:59 05/06/18 09:07 05/06/18 09:07 05/06/18 09:07 Oxygen Flow Rate (L/min) 2 Oxygen Delivery Method Room Air Weight: 142 lb 6.698 oz Body Mass Index (BMI) 23.7 Finger Stick Blood Glucose 92 Intake and Output for Last 24 Hours 05/04/18 05/05/18 05/06/18 23:59 23:59 23:59 Intake Total 1384 / 1384 Balance 1384 / 1384 Laboratory Tests Past 24 Hrs 05/05/18 05/05/18 05/05/18 14:32 14:32 14:32 WBC RBC Hgb Hct MCV MCH MCHC RDW RDW Differential Plt Count MPV Sodium Potassium Chloride Carbon Dioxide Anion Gap BUN Creatinine Estim Creat Clear Calc Est GFR (MDRD) Af Amer Est GFR (MDRD) Non-Af BUN/Creatinine Ratio Glucose Hemoglobin A1c 5.5 Calcium Phosphorus Magnesium Triglycerides 75 Cholesterol 217 H LDL Cholesterol 136 H VLDL Cholesterol 15 HDL Cholesterol 66 Whole Bld Vitamin B1 Vitamin B12 1101 H TSH Urine Opiates Screen Urine Methadone Screen Ur Barbiturates Screen Ur Phencyclidine Scrn Ur Amphetamines Screen U Methamphetamin-MDMA U Benzodiazepines Scrn Urine Cocaine Screen U Cannabinoids Screen Ur Drug Screen Comment 05/05/18 05/05/18 05/06/18 14:32 14:32 01:20 WBC RBC Hgb Hct MCV MCH MCHC RDW RDW Differential Plt Count MPV Sodium Potassium Chloride Carbon Dioxide Anion Gap BUN Creatinine Estim Creat Clear Calc Est GFR (MDRD) Af Amer Est GFR (MDRD) Non-Af BUN/Creatinine Ratio Glucose Hemoglobin A1c Calcium Phosphorus 2.8 Magnesium 2.0 Triglycerides Cholesterol LDL Cholesterol VLDL Cholesterol HDL Cholesterol Whole Bld Vitamin B1 Pending Vitamin B12 TSH 0.80 Urine Opiates Screen NEGATIVE Urine Methadone Screen NEGATIVE Ur Barbiturates Screen NEGATIVE Ur Phencyclidine Scrn NEGATIVE Ur Amphetamines Screen NEGATIVE U Methamphetamin-MDMA NEGATIVE U Benzodiazepines Scrn NEGATIVE Urine Cocaine Screen NEGATIVE U Cannabinoids Screen NEGATIVE Ur Drug Screen Comment 05/06/18 05/06/18 10:30 10:30 WBC 5.7 RBC 3.84 L Hgb 12.9 Hct 39.3 MCV 102.3 H MCH 33.6 H MCHC 32.8 RDW 11.7 RDW Differential 43.2 Plt Count 266 MPV 9.2 Sodium 133 L Potassium 3.7 Chloride 99 Carbon Dioxide 28.0 Anion Gap 6 BUN 14 Creatinine 0.73 Estim Creat Clear Calc 41.72 Est GFR (MDRD) Af Amer 99 Est GFR (MDRD) Non-Af 82 BUN/Creatinine Ratio 19.2 Glucose 154 H Hemoglobin A1c Calcium 8.0 L Phosphorus Magnesium 1.9 Triglycerides Cholesterol LDL Cholesterol VLDL Cholesterol HDL Cholesterol Whole Bld Vitamin B1 Vitamin B12 TSH Urine Opiates Screen Urine Methadone Screen Ur Barbiturates Screen Ur Phencyclidine Scrn Ur Amphetamines Screen U Methamphetamin-MDMA U Benzodiazepines Scrn Urine Cocaine Screen U Cannabinoids Screen Ur Drug Screen Comment Discharge Diet: Low fat/ Low Cholesterol Discharge Activity: Return to Normal Activity Call your doctor if you observe: Numbness or Tingling, Shortness of breath, Dizziness, Fainting spells, Chest pain Home Medications: Medications to take at Discharge antiarthritic combination no.2 900 mg tablet 900 mg PO BID tab 11/22/17 lisinopril 40 mg tablet 40 mg PO DAILY 11/22/17 Calcium Carbonate/Vitamin D3 [Calcium 600 + Vit D Tablet] 2 tab PO DAILY 05/05/18 Levofloxacin 500 mg PO DAILY 05/05/18 Multivitamin with Minerals [Multiple Vitamin] 1 tab PO DAILY 05/05/18 Vitamin B Complex 1 each PO DAILY 05/05/18 Aspirin [Aspirin, Baby] 81 mg PO DAILY@0800 #30 tab.chew 05/06/18 Atorvastatin Calcium [Lipitor] 40 mg PO QHS #30 tablet 05/06/18 Clopidogrel Bisulfate [Plavix] 75 mg PO DAILY #21 tablet 05/06/18 Thiamine Hydrochloride [Vitamin B1] 100 mg PO BIDCM #60 tablet 05/06/18 Following Prescrptions Were Given to Patient: Aspirin [Aspirin, Baby] 81 mg PO DAILY@0800 #30 tab.chew Atorvastatin Calcium [Lipitor] 40 mg PO QHS #30 tablet Clopidogrel Bisulfate [Plavix] 75 mg PO DAILY #21 tablet Thiamine Hydrochloride [Vitamin B1] 100 mg PO BIDCM #60 tablet Primary Care Physician: Rustam Castro MD [Primary Care Provider] - Please follow up with your Primary Care Physician in: 1 Week Please Follow Up With: Abhijit Lynn DO - Pulmonary Medicine When: 1-2 Weeks, establish for monitoring of lung nodules/workup shortness breath Please Follow Up With: Dr. Johnston - Neurosurgery When: 1-2 weeks Please Follow Up With: Billy Rodríguez MD - Neurologist When: 2-3 Weeks Disposition: Home Minutes spent on discharge:: 35 Patient Condition:: Stable Medical Necessity - Tobacco Use Smoking Status: Former smoker Tobacco Use: Cigarettes Meaningful Use Info Meaningful Use Diagnoses (Choose all that apply): None applicable <Curry Ly - Last Filed: 05/06/18 13:50> Discharge Date and Diagnosis - Secondary Discharge Diagnosis Chronic Problems (Last Reviewed 11/22/17 @ 13:05 by Jaylin Veronica) HTN (hypertension) (Chronic) HLD (hyperlipidemia) (Chronic) ETOH abuse (Chronic) Hospital Course and Treatment Imaging Results: 05/06/18 10:07 CT Chest [Chest WITH Contrast] [CT] Urgent Summary of Care Provided: This patient was seen in conjunction with LARY Acosta . I have independently interviewed and examined the patient and reviewed pertinent historical, laboratory, and other data. Please refer to LARY Acosta note for details of this patient's presentation, findings, and recommendations. I have reviewed LARY Acosta note and concur with documented findings. In brief, patient is a 77-year-old female admitted with transient aphasia as well as confusion 1. Transient ischemic attack 2. Carotid artery aneurysm 3. Lung nodule 4. COPD 5. Essential hypertension 6. Dyslipidemia 7. Hyponatremia Hospital course: As documented above - Physical Exam Vital Signs Temp Pulse Resp BP Pulse Ox 97.8 F 112 H 18 126/60 H 93 05/06/18 13:26 05/06/18 13:26 05/06/18 13:26 05/06/18 13:26 05/06/18 13:26 Oxygen Flow Rate (L/min) 2 Oxygen Delivery Method Room Air Weight: 64.6 kg Body Mass Index (BMI) 23.7 Finger Stick Blood Glucose 92 Intake and Output for Last 24 Hours 05/04/18 05/05/18 05/06/18 23:59 23:59 23:59 Intake Total 1384 / 1384 Balance 1384 / 1384 Laboratory Tests Past 24 Hrs 05/05/18 05/05/18 05/05/18 14:32 14:32 14:32 WBC RBC Hgb Hct MCV MCH MCHC RDW RDW Differential Plt Count MPV Sodium Potassium Chloride Carbon Dioxide Anion Gap BUN Creatinine Estim Creat Clear Calc Est GFR (MDRD) Af Amer Est GFR (MDRD) Non-Af BUN/Creatinine Ratio Glucose Hemoglobin A1c 5.5 Calcium Phosphorus Magnesium Triglycerides 75 Cholesterol 217 H LDL Cholesterol 136 H VLDL Cholesterol 15 HDL Cholesterol 66 Whole Bld Vitamin B1 Vitamin B12 1101 H TSH Urine Opiates Screen Urine Methadone Screen Ur Barbiturates Screen Ur Phencyclidine Scrn Ur Amphetamines Screen U Methamphetamin-MDMA U Benzodiazepines Scrn Urine Cocaine Screen U Cannabinoids Screen Ur Drug Screen Comment 05/05/18 05/05/18 05/06/18 14:32 14:32 01:20 WBC RBC Hgb Hct MCV MCH MCHC RDW RDW Differential Plt Count MPV Sodium Potassium Chloride Carbon Dioxide Anion Gap BUN Creatinine Estim Creat Clear Calc Est GFR (MDRD) Af Amer Est GFR (MDRD) Non-Af BUN/Creatinine Ratio Glucose Hemoglobin A1c Calcium Phosphorus 2.8 Magnesium 2.0 Triglycerides Cholesterol LDL Cholesterol VLDL Cholesterol HDL Cholesterol Whole Bld Vitamin B1 Pending Vitamin B12 TSH 0.80 Urine Opiates Screen NEGATIVE Urine Methadone Screen NEGATIVE Ur Barbiturates Screen NEGATIVE Ur Phencyclidine Scrn NEGATIVE Ur Amphetamines Screen NEGATIVE U Methamphetamin-MDMA NEGATIVE U Benzodiazepines Scrn NEGATIVE Urine Cocaine Screen NEGATIVE U Cannabinoids Screen NEGATIVE Ur Drug Screen Comment 05/06/18 05/06/18 10:30 10:30 WBC 5.7 RBC 3.84 L Hgb 12.9 Hct 39.3 MCV 102.3 H MCH 33.6 H MCHC 32.8 RDW 11.7 RDW Differential 43.2 Plt Count 266 MPV 9.2 Sodium 133 L Potassium 3.7 Chloride 99 Carbon Dioxide 28.0 Anion Gap 6 BUN 14 Creatinine 0.73 Estim Creat Clear Calc 41.72 Est GFR (MDRD) Af Amer 99 Est GFR (MDRD) Non-Af 82 BUN/Creatinine Ratio 19.2 Glucose 154 H Hemoglobin A1c Calcium 8.0 L Phosphorus Magnesium 1.9 Triglycerides Cholesterol LDL Cholesterol VLDL Cholesterol HDL Cholesterol Whole Bld Vitamin B1 Vitamin B12 TSH Urine Opiates Screen Urine Methadone Screen Ur Barbiturates Screen Ur Phencyclidine Scrn Ur Amphetamines Screen U Methamphetamin-MDMA U Benzodiazepines Scrn Urine Cocaine Screen U Cannabinoids Screen Ur Drug Screen Comment Code Visit OBSV E&M: 26783 Observation care discharge
--- NOTE | 2018-05-06 13:20 | CASEMGMT ---
Therapy is recommending OP therapy at this time. This RN CM to room to discuss with pt and after explanation and recommendation, pt declines OP therapy at this time. Pt states 'the only reason I was wobbly was because you all made me stay in this bed since 11pm last night.' Pt is aware that if she changes her mind, Dr. Castro can set her up with OP therapy, voices understanding. Pt voices no further questions/concerns/needs at this time. SStjason RN CM
--- NOTE | 2018-05-06 14:10 | CASEMGMT ---
Social Work PCU Consult received for substance abuse. Chart reviewed and noted patient drinks 4-5 rum drinks a day. From chart review noted patient with diagnoses of TIA. Presented to room to talk with patient about resources, needs and supports. Patient sitting in bed, dressed, calling for a ride, and present. This law writer introduced to self and role, reason for visit. Patient smiled and politely declined any resource or referral needs and indicated the only issue that having is that was made to stay in bed overnight. Patient denies needs with home going, denies resource for the community for any type of help. Patient reports to feel able to manage as before at home. -TY Sanchez, MEAL MILLER
== END 2018-05-06 14:17 | disposition home or self-care (01) ==
LOC: ED 15:45 → PCU 16:15
PROVIDERS: Internal Medicine; Psychiatry & Neurology Neurology; Admitting Provider Family Medicine; Emergency Provider Emergency Medicine; Family Provider Family Medicine; PCP Family Medicine; Visit Provider Internal Medicine
DX: G45.9 Transient cerebral ischemic attack, unspecified (principal); R47.01 Aphasia; I10 Essential (primary) hypertension; E87.1 Hypo-osmolality and hyponatremia; E78.5 Hyperlipidemia, unspecified; R91.8 Other nonspecific abnormal finding of lung field; I72.0 Aneurysm of carotid artery; F10.10 Alcohol abuse, uncomplicated; Y90.1 Blood alcohol level of 20-39 mg/100 ml; H91.90 Unspecified hearing loss, unspecified ear; M19.90 Unspecified osteoarthritis, unspecified site; Z87.891 Personal history of nicotine dependence; Z79.899 Other long term (current) drug therapy; R20.2 Paresthesia of skin
CPT/HCPCS: 36415; 70450; 70496; 70498; 70551; 71045; 71260; 80048; 80061; 80307; 80320; 82607; 82962; 83036; 83735; 84100; 84425; 84443; 84484; 85025; 85027; 85610; 85730; 92523; 93005; 93306; 94640; 96361; 96372; 96374; 96375; 97161; 97166; 97802; 99218; 99285; J7030; Q9967; A4216; G0378; G0480

== ENCOUNTER → 2018-05-25 12:11 | Outpatient (CLI) | payer MEDICARE, SELFPAY ==
[2018-05-18 06:02] VITALS: BMI 24.4
[2018-05-25 13:02] VITALS: PULSE 100; PULSE 104; PULSE 105; PULSE 106; PULSE 111; O2SAT 90; O2SAT 91; O2SAT 92; O2SAT 93; O2SAT 96; O2SAT 97
--- NOTE | 2018-05-26 06:53 | PCM.PSN.6M ---
PSN 6 Minute Walk Test - 6 Minute Walk Test 6 Minute Walk Test: 6 Minute Walk Test PSN:6-Minute Walk Test Start: 05/25/18 13:01 Freq: Status: Active Protocol: [id number] Document 05/25/18 13:02 FR (Rec: 05/25/18 13:11 [id number]) 6 Minute Walk Test Date Performed 05/25/18 Time Performed 12:30 Height 5 ft 6 in Weight: 67.132 kg Weight in Pounds 148.0 lbs Assistive device used: None Pre-test Oxygen Delivery Method Room Air Pulse Ox (%) 96 Pulse Rate (60-100 beats/min) 100 Dyspnea Mahad Scale (0-10) 3 Exertion Mahad Scale (6-20) 11 1st minute Oxygen Delivery Method Room Air Pulse Ox (%) 93 Pulse Rate (60-100 beats/min) 106 H 2nd minute Oxygen Delivery Method Room Air Pulse Ox (%) 91 Pulse Rate (60-100 beats/min) 100 3rd minute Oxygen Delivery Method Room Air Pulse Ox (%) 91 Pulse Rate (60-100 beats/min) 105 H 4th minute Oxygen Delivery Method Room Air Pulse Ox (%) 90 Pulse Rate (60-100 beats/min) 105 H 5th minute Oxygen Delivery Method Room Air Pulse Ox (%) 92 Pulse Rate (60-100 beats/min) 104 H 6th minute Oxygen Delivery Method Room Air Pulse Ox (%) 93 Pulse Rate (60-100 beats/min) 105 H Dyspnea Mahad Scale (0-10) 5 Exertion Mahad Scale (6-20) 13 Post-test Oxygen Delivery Method Room Air Pulse Ox (%) 97 Pulse Rate (60-100 beats/min) 111 H Full Laps Walked 16 Partial Lap, Number of Tiles Walked 54 Total Distance Walked (ft) 998 - Interpretation Interpretation: The patient was able to ambulate 998 feet over the course of 6 minutes on room air with no assistive devices or breaks. The patient did experience significant desaturation from a baseline of 96% to as low as 90% during ambulation. These findings are consistent with a respiratory limitation exercise tolerance. - Recommendations Recommendations: No supplemental oxygen is indicated at this time. However, patient will need to be followed closely given level of desaturation.
== END ==
PROVIDERS: Family Provider Family Medicine; PCP Family Medicine; Referring Provider Internal Medicine Critical Care Medicine; Visit Provider Internal Medicine Critical Care Medicine
DX: R06.09 Other forms of dyspnea (principal)
CPT/HCPCS: 94618

== ENCOUNTER → 2018-05-30 08:51 | Outpatient (CLI) | payer MEDICARE, SELFPAY ==
[2018-05-18 06:02] VITALS: BMI 24.4
--- NOTE | 2018-05-30 15:40 | PFTCOMP ---
COMPLETE PULMONARY FUNCTION TEST INTERPRETATION Brief HPI: Patient is a 77 year old female, currently under the care of myself, who presents to [facility] for complete pulmonary function tests secondary to diagnosis of dyspnea. Respiratory therapist reports good effort and reproducible results. Interpretation: Forced expiration spirometry shows a severe large airways obstructive ventilatory defect with an FEV1 of 45% predicted. There is no significant bronchodilator response by strict ATS criteria. Spirograms are of good quality and plateau slowly, indicating slowly emptying areas of the lungs. The respiratory flow volume loop shows decreased expiratory flow rates at all lung volumes consistent with airway obstruction. Lung volumes by body plethysmography show an elevated total lung capacity at 7.36 L, 149% predicted. FRC and RV are elevated out of proportion. Lung volume measurements are consistent with hyperinflation and air-trapping. Diffusion capacity by carbon monoxide is at the lower limit of normal at 69% predicted. The airway resistance is elevated. No previous pulmonary function tests were available for review. Impression: Irreversible severe large airways obstructive ventilatory defect resulting in air trapping with hyperinflation, in a pattern consistent with advanced COPD
== END ==
PROVIDERS: Family Provider Family Medicine; PCP Family Medicine; Referring Provider Internal Medicine Critical Care Medicine; Visit Provider Internal Medicine Critical Care Medicine
DX: R06.09 Other forms of dyspnea (principal)
CPT/HCPCS: 94060; 94726; 94729

== ENCOUNTER → 2019-02-16 12:42 | Outpatient (CLI) | payer MEDICARE, SELFPAY ==
[2018-11-22 10:43] VITALS: BMI 24.6
--- NOTE | 2019-02-17 05:43 | PFTCOMP ---
COMPLETE PULMONARY FUNCTION TEST INTERPRETATION Brief HPI: Patient is a 78 year old female, currently under the care of Victoria Reveles, who presents to [facility] for complete pulmonary function tests secondary to diagnosis of COPD. Respiratory therapist reports good effort and reproducible results. Interpretation: Forced expiration spirometry shows a moderately severe large airways obstructive ventilatory defect with an FEV1 of 54% predicted. There is no significant bronchodilator response by strict ATS criteria. Spirograms are of good quality and plateau slowly, indicating slowly emptying areas of the lungs. The respiratory flow volume loop shows decreased expiratory flow rates at all lung volumes consistent with airway obstruction. Lung volumes by body plethysmography show a normal total lung capacity at 4.88 L, 99% predicted. All other lung volumes are within normal limits. Diffusion capacity by carbon monoxide is normal at 78% predicted. The airway resistance is elevated. Compared to previous pulmonary function tests from 05/30/2018, there is been a significant improvement in FVC and FEV1 by 31% and 35% respectively, resulting in much improved air trapping. Impression: Irreversible moderately severe large airways obstructive ventilatory defect with significant improvement compared to May 2018
== END ==
PROVIDERS: Family Provider Family Medicine; PCP Family Medicine; Referring Provider Nurse Practitioner Acute Care; Visit Provider Nurse Practitioner Acute Care
DX: J44.9 Chronic obstructive pulmonary disease, unspecified (principal)
CPT/HCPCS: 94060; 94726; 94729

== ENCOUNTER 2019-02-28 10:04 | Inpatient (IN) | payer MEDICARE, SELFPAY ==
[2018-11-22 10:43] VITALS: BMI 24.6
[2019-02-28] VITALS (11 sets, daily range): BP systolic 163–208; BP diastolic 8–117; PULSE 86–123; RESP 20–32; TEMP 36.4–37; O2SAT 86–97; BMI 24.1; BMI 24.3
--- NOTE | 2019-02-28 10:22 | EKG12_ITS ---
Test Reason : SOB Blood Pressure : / mmHG Vent. Rate : 110 BPM Atrial Rate : 110 BPM P-R Int : 156 ms QRS Dur : 072 ms QT Int : 366 ms P-R-T Axes : 076 048 074 degrees QTc Int : 495 ms Sinus tachycardia Septal infarct , age undetermined Abnormal ECG Confirmed by CHRISTOPHER MCDONALD, JOCELYN ([id number]), newspaper managing editor BISMARK GUERRA ([id number]) on 03/02/2019 10:30:57 AM Referred By: CHEPE Confirmed By:PASHA WHITE MD
[2019-02-28] MEDS: Ipratropium/Albuterol Sulfate 3 ML AMPUL.NEB INHALATION ×2 (10:33→19:40)
[2019-02-28 10:36] LABS: Basophil# 0.07 X10^3/uL; Differential Indicated SCAN CRITERIA MET; Eosinophil# 0.04 X10^3/uL; Hematocrit 39.4 % (37-47); Hemoglobin 13.7 g/dL (12.0-15.0); Lymphocyte # 1.02 X10^3/ul (4.0); Mean Corp Hgb Conc 34.8 g/dL (32-36); Mean Corpuscular Hgb 34.5 pg (27.0-32.0); Mean Corpuscular Volume 99.2 fL (81-99); Mean Platelet Vol. 8.6 fl (6.2-12.0); Monocyte# 1.54 X10^3/uL; NRBC Flagged by Analyzer 0 % (0-5); Neutrophil # 11.71 X10^3/uL (2.7-7.7); POSITIVE DIFFERENTIAL YES; Platelet Count 396 K/mm3 (150-450); Red Blood Count 3.97 M/mm3 (4.2-5.4); White Blood Count 14.6 K/mm3 (4.4-11.0)
[2019-02-28] MEDS: Albuterol 2.5 MG/3 ML VIAL.NEB. INHALATION ×3 (10:43→11:27)
[2019-02-28] MEDS: MethylPREDNISolone 125 MG/2 ML Vial IV (10:52)
--- NOTE | 2019-02-28 10:54 | ED.DCSUM_ITS ---
History of Present Illness Chief Complaint: Shortness of Breath Informant: Patient, Family Onset: Today Narrative: Patient presents with progressive shortness of breath over 1 week. She has a history of COPD. She does not wear home oxygen. She has not been experiencing fever or other URI symptoms. She notes cough. He states that she had a difficult night last night and today needed to be seen. She does not have any home aerosols. She has not been on any recent steroids. She has been using Mucinex, a leftover antibiotic, and her inhalers. She sees Dr. Jonathan Armenta for pulmonology. Past Medical History - Allergies and Home Meds Allergies/Adverse Reactions: Allergies No Known Allergies Allergy (Verified 02/28/19 10:07) Primary Care Physician: Rustam Castro MD [Primary Care Provider] - Surgical History: - - Appendectomy, breast biopsy unclear side, cataract surgery, left hip replacement, left ovarian cyst intervention. Smoking Status: Former smoker - Family History Maternal Family History: Family History (Last Reviewed 11/22/18 @ 10:59 by LARY Mehta) Mother Malignant neoplasm of skin Arthritis Osteoporosis Aunt CVA (cerebral vascular accident) Grandfather Asthma CVA (cerebral vascular accident) Father Asthma Family History: Reports: - - Patient notes a maternal family history of osteoporosis, osteoarthritis, skin cancer. Paternal Family History: Family History (Last Reviewed 11/22/18 @ 10:59 by LARY Mehta) Mother Malignant neoplasm of skin Arthritis Osteoporosis Aunt CVA (cerebral vascular accident) Grandfather Asthma CVA (cerebral vascular accident) Father Asthma Family History: Reports: - - Patient notes a paternal family history of asthma. Review of Systems General: Denies: Chills, Fever, Sweats Eyes: Denies: Visual changes - bilaterally, Diplopia ENT: Denies: Rhinorrhea, Sore throat Cardiovascular: Denies: Chest pain, Palpitations Respiratory: Reports: Dyspnea, Cough, Sputum - Mall amount of white sputum, Dyspnea on exertion Gastrointestinal: Denies: Abdominal pain, Nausea, Vomiting, Diarrhea, Melena, Hematochezia Genitourinary: Denies: Dysuria, Hematuria, Frequency Musculoskeletal: Denies: Back pain, Extremity Pain Skin: Denies: Rash, Wounds Neurological: Denies: Headache, Weakness, Numbness Physical Exam Vital Signs/Narrative: Vital Signs Temp Pulse Resp BP Pulse Ox 12/25/19 10:33 110 H 25 H 94 02/28/19 10:29 98.1 F 101 H 29 H 178/114 H 94 02/28/19 10:05 98.2 F 86 25 H 208/117 H 86 Inital Vital Signs reviewed: Yes General: Well nourished, Well developed, No Acute Distress Head: Normocephalic, Atraumatic Eyes: Perrl, EOMI ENT: Moist mucous membranes, No rhinorrhea Neck: Supple, Nontender Cardiovascular: Regular rate, Regular rhythm, No murmurs Respiratory: Chest nontender, Wheezing, Decreased Air Movement, - - Patient is tachypneic with increased work of breathing Abdomen: Soft, Nontender, Nondistended, Normal bowel sounds Back: Nontender, Normal Inspection Extremities: Nontender, No edema Skin: Normal color, No rash Neurological: Alert, Oriented x3, Cranial nerves II-XII grossly intact, Normal Strength, Normal Sensation Psychological: Normal affect, Normal Mood Diagnostic/Tx/Re-eval - EKG Initial EKG Interpretation: Sinus Tachycardia - Rate of 110. No ectopy. - Medical Decision Making Patient received Solu-Medrol and aerosols. After breathing treatments were obtained patient with simply standing at the bedside dropped to 87% her resting respiratory rate was in the 30s. She has been receiving supplemental oxygen at 3 L which is kept her in the 93 to 95% range. Her chest x-ray does not show any consolidation. White count is elevated. CTA of the chest was obtained to rule out pulmonary embolism. This does not demonstrate any PE or dissection. No effusion or consolidation. Our plan is admission given her continued dyspnea and hypoxemia ED Disposition - Plan for ED Patient: Disposition: Acute Care Hospital [facility] Diagnosis: COPD with exacerbation, Hyponatremia, Hypoxia Referrals: Rustam Castro MD [Primary Care Provider] -
[2019-02-28 10:58] LABS: Scan Smear per Review Criteria MANUAL DIFF
[2019-02-28 10:59] LABS: Anion Gap 11 (5-15); BUN 10 mg/dL (7-18); BUN/Creat Ratio 17.1 RATIO (10-20); Chloride 81 mmol/L (98-107); Creatinine, Serum 0.58 mg/dL (0.55-1.02); EST Glomerular Filtration Rate 105 mL/min (>60); Est Glom Filt Rate - Afr Amer 128 mL/min (>60); Estimated Creatinine Clearance 41.05 ml/min; Glucose 141 mg/dL (74-106); Potassium 3.4 mmol/L (3.5-5.1); Sodium Level 121 mmol/L (136-145)
[2019-02-28 11:02] LABS: Lymphocyte 10 % (19-41); Monocyte 7 % (0-10); Neutrophil-Band 4 % (0-5); Neutrophil-Segmented 79 % (47-70); Total Cells Counted 100 (MANUAL DIFF)
[2019-02-28 11:03] LABS: Platelet Estimate ADEQUATE (ADEQ); Red Cell Morphology NORM C+C NORMAL (NORM C&C)
[2019-02-28 11:04] LABS: Absolute Lymphocyte Count 1.46 X10^3/uL (0.83-4.51); Absolute Neutrophil Count 12.2 X10^3/uL (2.0-7.7)
--- NOTE | 2019-02-28 11:10 | RAD_ITS ---
STUDY: X-RAY CHEST REASON FOR EXAM: Female, 78 years old. Increased shortness of breath. History of COPD. TECHNIQUE: Frontal and lateral views of the chest. COMPARISON: May 05, 2018 FINDINGS: Hyperexpansion unchanged. There is no demonstrated pleural abnormality. Borderline cardiomegaly. Calcified mediastinal and hilar lymph nodes. Normal visualized pulmonary arteries. Aortic tortuosity with calcification. Thoracolumbar spondylosis with osteopenia. Normal visualized ribs, clavicles, and shoulders. There is no demonstrated abnormality of the visualized soft tissue structures of the upper abdomen. RAD/Chest PA and Lateral IMPRESSION: Stable chest with no acute superimposed finding. Electronically Signed: Gorge Moreno MD at 12:14 EST , Service support ,
--- NOTE | 2019-02-28 12:44 | CT_ITS ---
STUDY: CTA CHEST REASON FOR EXAM: Female, 78 years old. SOB X1 WEEK -- HX-COPD,RIGHT PNEUMOTHORAX -- HTN RADIATION DOSAGE (If Supplied By Facility): CTDIvol = ( 5.46 ) mGy, DLP = ( 159.48 ) mGycm TECHNIQUE: The examination was performed with the intravenous administration of 75CC ISOVUE 370. Post-processing of the angiographic images was performed, with multiplanar reformation and 3D reconstruction. Individualized dose optimization techniques were used for this CT. COMPARISON: 05/06/2018 FINDINGS: There is no evidence of pulmonary embolus. There is no evidence of thoracic aortic aneurysm or dissection. The heart and pericardium are within normal limits. There is no thoracic lymphadenopathy. There are stable mild emphysematous changes noted in the lungs. There is a stable spiculated nodule in the left upper lobe. There are new patchy tree-in-bud nodules in the lungs, consistent with a mild infectious etiology. There are no focal infiltrates. There are no pleural effusions. There is no pneumothorax. Images through the upper abdomen demonstrate fatty infiltration of the liver. CT/CTA Chest W/WO Contrast IMPRESSION: No evidence of pulmonary embolus. No evidence of thoracic aortic aneurysm or dissection. Stable emphysema with a stable spiculated nodule in the left apex. Continued follow-up is recommended. New tree-in-bud nodules in both lungs, consistent with a mild infectious etiology. No focal infiltrates. No pleural effusions. No pneumothorax. Fatty liver. Electronically Signed: David Babcock, at 13:57 EST Tel , Service support ,
--- NOTE | 2019-02-28 15:15 | PCM.HP.STD ---
Problem List (1) Shortness of breath Status: Acute (2) Cough Status: Acute History of Present Illness Date of Admission: 02/28/19 Chief Complaint: Shortness of breath, cough The patient is a 78 year old F who was seen in the emergency room at [facility] with a chief complaint of increased shortness of breath x1 week. Patient has a diagnosis of COPD and is on medications but she is on no oxygen at home. Patient denies any fevers or chills, she does say she was coughing up white sputum over the past week. Work-up in the emergency room revealed her pulse ox to be 86% on room air at rest, patient was afebrile, labs revealed an elevated white blood cell count 14.6, chemistry panel showed a sodium of 121, potassium was 3.4, and glucose was 141. Patient had a CT of her chest which showed no evidence of pulmonary embolism, mild emphysematous changes were noted in the lungs, there was a spiculated nodule in the left upper lobe which was stable compared to a prior CT done on 05/06/2018. No infiltrates were noted. On examination, patient's breath sounds were distant bilaterally, patient was admitted to [place] [address] for exacerbation of COPD and hypoxia. She will receive IV Solu-Medrol, oral Zithromax, and her oxygen sat will be monitored. 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) Stage 3 severe COPD by GOLD classification (Chronic) Lung nodule (Chronic) JITENDRA noted 05/05/18 HTN (hypertension) (Chronic) HLD (hyperlipidemia) (Chronic) ETOH abuse (Chronic) Medical History: Medical History (Last Reviewed 11/22/18 @ 10:59 by Victoria Reveles NP-C) Rectal bleeding (Resolved) K62.5 Alcohol abuse F10.10 Arthritis M19.90 Brain tumor D49.6 Breast lump N63.0 Cataract H26.9 Hearing loss H91.90 Hearing problem H91.90 Impaired fasting glucose R73.01 Osteopenia M85.80 Solitary pulmonary nodule R91.1 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 Hypertension I10 Allergies No Known Allergies Allergy (Verified 02/28/19 14:47) Home Medications: Ambulatory Orders Medication Instructions Recorded lisinopril 40 mg tablet 40 mg PO DAILY 11/22/17 Aspirin [Aspirin, Baby] 81 mg PO DAILY@0800 #30 tab.chew 05/06/18 Atorvastatin Calcium [Lipitor] 40 mg PO QHS #30 tab 05/06/18 Albuterol Inhaler [Ventolin Hfa 2 puff INHALATION Q6H PRN PRN 02/28/19 (SP)] Glycopyrrolate/Formoterol Fum 2 puff INHALATION BID 02/28/19 [Bevespi Aerosphere Inhaler] Surgical History: Surgical History (Last Reviewed 11/22/18 @ 10:59 by LARY Mehta) History of appendectomy Z90.49 History of breast biopsy Z98.890 History of cataract surgery Z98.49 History of left hip replacement Z96.642 History of ovarian cystectomy Z98.890, Z87.42 History of cranial surgery Z98.890 Surgical History: - - Appendectomy, breast biopsy unclear side, cataract surgery, left hip replacement, left ovarian cyst intervention. 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 Paternal Family History: Family History (Last Reviewed 11/22/18 @ 10:59 by LARY Mehta) Mother Malignant neoplasm of skin Arthritis Osteoporosis Aunt CVA (cerebral vascular accident) Grandfather Asthma CVA (cerebral vascular accident) Father Asthma History Items: - - Patient notes a paternal family history of asthma. Review of Systems Constitutional: Denies: Anorexia, Chills, Fever, Night Sweats, Malaise, Weakness, Weight Change Eyes: Denies: Cataracts, Conjunctivae Inflammation, Double vision, Drainage HEENT: Denies: Difficulty Swallowing, Ear Pain, Eye Pain, Hearing Changes, Nasal bleeding, Nasal Congestion, Post Nasal Drip Cardiovascular: Denies: Chest Pain, Claudication, Chest Pressure, Chest Tightness, Edema, Heaviness, Orthopnea, Palpitations Respiratory: Reports: Cough, Shortness of Breath, Shortness of breath at rest, Shortness of breath upon exertion, Sputum production. Denies: Hemoptysis, Pleuritic Pain Gastrointestinal: Denies: Abdominal Pain, Constipation, Diarrhea, Hematemesis, Hematochezia, Nausea, Melena, Vomiting Genitourinary: Denies: Dysuria, Frequency, Hematuria, Hesitancy, Nocturia, Retention, Urgency Gynecological: Denies: Breast symptoms Musculoskeletal: Denies: Back Pain, Foot Pain, Hand Pain, Joint Pain, Joint stiffness, Joint swelling, Joint Tenderness, Leg Pain Skin: Denies: Dryness, Pruritis, Rash Neurological: Denies: Blurred vision, Double vision, Change in Speech, Slurred speech, Difficulty swallowing, Focal weakness, Headaches, Numbness, Tingling Psychiatric: Denies: Anxiety, Depression, Homicidal Ideations, Suicidal Ideations Endocrine: Denies: Change in Body Habitus, Heat/ Cold Intolerance, Polydipsia, Polyuria Hematologic/ Lymphatic: Denies: Adenopathy, Anemia, Easy Bruising, Easy Bleeding, Petechiae, Purpura VTE Information - Inpt Only VTE Present on Admission: No VTE Mechan Device Prophylaxis: None VTE Pharm Prophylaxis ordered?: Yes Patient Problems: Active and Suspected Problems (Last Updated 02/28/19 @ 15:35 by Onofre Glynn DO) COPD with exacerbation (Acute) Hyponatremia (Acute) Hypoxia (Acute) Shortness of breath (Acute) Cough (Acute) - Physical Exam Vitals/I&O's: Vital Signs Temp Pulse Resp BP Pulse Ox 97.8 F 113 H 27 H 163/8 H 94 02/28/19 14:04 02/28/19 14:04 02/28/19 14:04 02/28/19 14:04 02/28/19 14:04 Oxygen Flow Rate (L/min) 2 Oxygen Delivery Method Nasal Cannula Weight: 66.253 kg Body Mass Index (BMI) 24.3 Finger Stick Blood Glucose 92 General: Alert, Oriented x3, Cooperative, Well developed, Well nourished HEENT: Atraumatic, PERRLA, EOMI, Normocephalic Oral: Moist Mucosa Neck: Supple, No JVD, Negative Carotid Bruits, Trachea Midline, Thyroid Normal Size and Texture Lungs: No rhonchi, No wheeze, No rales, Diminished, Short of Breath Cardiovascular: Regular rate, Regular Rhythm, Normal S1, Normal S2, No murmurs, PMI Normal, No rub noted Abdomen: Bowel Sounds Present, Soft, Non Tender, Non-Distended Extremities: No edema, Capillary Refill Less than 3 Seconds Skin: No rashes, No breakdown Musculoskeletal: No Tenderness to Palpation of Joints or Extremities Neurological: Cranial nerves II-XII grossly intact, Neuro grossly intact, Muscle tone normal, Sensory exam intact to light touch and pain Psych/Mental Status: Normal Affect, Appropriate, Alert and oriented to time, place, person, mood and affect Laboratory Results 02/28/19 10:16: WBC 14.6 H, RBC 3.97 L, Hgb 13.7, Hct 39.4, MCV 99.2 H, MCH 34.5 H, MCHC 34.8, RDW Std Deviation 44.0 H, RDW Coeff of Adri 12.0, Plt Count 396, MPV 8.6, Immature Gran % (Auto) OTR T[employer]ER TRUCK DRIVER, Neut % (Auto) OTR T[employer]ER TRUCK DRIVER, Lymph % (Auto) OTR T[employer]ER TRUCK DRIVER, Real % (Auto) OTR T[employer]ER TRUCK DRIVER, Eos % (Auto) OTR T[employer]ER TRUCK DRIVER, Baso % (Auto) OTR T[employer]ER TRUCK DRIVER, Absolute Neuts (auto) 12.2 H, Absolute Lymphs (auto) 1.46, Total Counted 100, Neutrophils % (Manual) 79 H, Band Neutrophils % 4, Lymphocytes % (Manual) 10 L, Monocytes % (Manual) 7, Nucleated RBC % 0, Diff Path Review May foll, Platelet Estimate ADEQUATE, RBC Morphology NORM C+C 02/28/19 10:16: Sodium 121 L, Potassium 3.4 L, Chloride 81 L, Carbon Dioxide 29.0, Anion Gap 11, BUN 10, Creatinine 0.58, Estim Creat Clear Calc 41.05, Est GFR (MDRD) Af Amer 128, Est GFR (MDRD) Non-Af 105, BUN/Creatinine Ratio 17.1, Glucose 141 H, Calcium 9.0 Current Medications Acetaminophen (Tylenol) 650 mg PO Q6H PRN PRN PRN Reason: Pain Score 1-3/Temp > 100.7 F Albuterol Sulfate (Ventolin Aerosols) 2.5 mg INHALATION Q2H PRN PRN PRN Reason: DYSPNEA Albuterol/Ipratropium (Duoneb) 3 ml INHALATION Q6H.RT [facility] Aspirin (Aspirin, Baby) 81 mg PO DAILY@0800 [facility] Atorvastatin Calcium (Lipitor) 40 mg PO QHS [facility] Azithromycin (Zithromax) 500 mg PO Q24 [facility] Heparin Sodium (Porcine) (Heparin Na) 5,000 unit SC Q12 [facility] Sodium Chloride () 250 mls @ 15 mls/hr IV .[id number] PRN PRN Reason: Saline Flush Lisinopril (Zestril) 40 mg PO DAILY [facility] Methylprednisolone (Solu-Medrol) 40 mg IV Q8 [facility] Sodium Chloride () 10 - 40 ml IV UD PRN PRN Reason: SALINE FLUSH Assessment/Plan All Active Problems (Last Updated 02/28/19 @ 15:35 by Onofre Glynn DO) COPD with exacerbation (Acute) Hyponatremia (Acute) Hypoxia (Acute) Shortness of breath (Acute) Cough (Acute) Dyspnea (Acute) TIA (transient ischemic attack) (Resolved) Rectal bleeding (Resolved) #1 exacerbation of COPD-patient will be admitted, given IV corticosteroids and aerosol treatments, pulse ox will be monitored, she will be placed on oral Zithromax. #2 hypoxia secondary to #1-pulse ox will be monitored #3 essential hypertension-blood pressure will be monitored #4 hyperlipidemia #5 hyponatremia-etiology unclear, patient has a past history of alcohol abuse noted in her chart, patient was vague on how much she drinks on a daily basis. BMP will be rechecked tomorrow Code Visit Inpatient E&M: 82041 Init Hosp L3
[2019-02-28] MEDS: Azithromycin 250 MG Tablet 500 MG PO (15:32)
[2019-02-28] MEDS: 0.9% Normal Saline 1,000 ML 75 ML IV (19:10)
[2019-02-28] MEDS: Heparin Injection (Vial) 5,000 UNIT/ML VIAL 5000 UNIT SC (22:48)
[2019-02-28] MEDS: Zolpidem Tartrate 5 MG Tablet PO (22:48)
[2019-02-28] MEDS: Atorvastatin Calcium 40 MG Tablet PO (22:53)
[2019-03-01] VITALS (14 sets, daily range): BP systolic 151–186; BP diastolic 72–104; PULSE 94–115; RESP 19–28; TEMP 36.4–37.1; O2SAT 92–98
[2019-03-01] MEDS: Ipratropium/Albuterol Sulfate 3 ML AMPUL.NEB INHALATION ×4 (00:09→19:37)
[2019-03-01] MEDS: Albuterol 2.5 MG/3 ML VIAL.NEB. INHALATION (03:24)
[2019-03-01] MEDS: 0.9% Normal Saline 1,000 ML 75 ML IV ×2 (04:58→18:13)
[2019-03-01 06:14] LABS: Anion Gap 6 (5-15); BUN 11 mg/dL (7-18); BUN/Creat Ratio 20.5 RATIO (10-20); Calcium,Total 8.4 mg/dL (8.5-10.1); Chloride 88 mmol/L (98-107); Creatinine, Serum 0.54 mg/dL (0.55-1.02); EST Glomerular Filtration Rate 116 mL/min (>60); Est Glom Filt Rate - Afr Amer 141 mL/min (>60); Estimated Creatinine Clearance 41.05 ml/min; Glucose 175 mg/dL (74-106); Potassium 3.5 mmol/L (3.5-5.1); Sodium Level 126 mmol/L (136-145)
[2019-03-01] MEDS: Aspirin 81 MG TAB.CHEW PO (08:54)
[2019-03-01] MEDS: Azithromycin 250 MG Tablet 500 MG PO (10:22)
[2019-03-01] MEDS: Heparin Injection (Vial) 5,000 UNIT/ML VIAL 5000 UNIT SC ×2 (10:22→21:27)
[2019-03-01] MEDS: Lisinopril 40 MG Tablet PO (10:22)
--- NOTE | 2019-03-01 10:50 | CASEMGMT ---
RN MARCELLA OFFSHORE WIND TURBINE TECHNICIAN CM to room to meet with patient for initial transition planning/care coordination assessment. VENKAT NARANJO introduced self and role at [facility]. Pt voices understanding and consents to assessment at this time. Pt resting in bed in no distress at this time. Pt is A/O at this time and answers all questions appropriately. Care providers, pharmacy, and demographics verified at this time. PCP: Dr Rustam Castro Specialists: Dr Armenta--pulmonology, Dr Elder Ramos--Neuroendovascular specialist for brain aneurysm's. Preferred Pharmacy: [facility] [place]: [facility] [place] [facility] Prescription Benefit: Yes Living Will/HPOA: has both LW and HCPOA, who is her , [place]. States will see if she can have copies brought in to be placed on file @ [facility] LNOK: , son and daughter Living Arrangements: Lives with her in one-story home w/3 steps to enter. Denies difficulty with stairs. Pt independent with ADL's. Pt/ share home mgmt tasks. Transportation: Pt states drives self and states no transportation concerns at this time. will drive her home @ discharge DME: has the following DME: rails in the tub, cane. Does not have home O2. Discussed with pt the possibility that she may need Oxygen @ discharge. Pt given list of local DME companies. 1st preference is [employer]. Pt states no need for further DME at this time. HHC/SNF: No history of either and pt denies needs for HHC. Discussed CCN with pt for COPD, but pt declines, stating, I don't want anybody coming to my home. Pt wishes to return home and states has no concerns with going home at time of discharge. CM to follow for home oxygen needs and any further discharge planning/needs. Pt voices no further concerns/needs at this time. Advised pt to ask for CM if any further questions/concerns/needs arise. Voices understanding. PLAN: Home. Follow for any oxygen needs at discharge. Ang STEINBERG RN, CM
[2019-03-01] MEDS: Zolpidem Tartrate 5 MG Tablet PO (21:35)
[2019-03-01] MEDS: Atorvastatin Calcium 40 MG Tablet PO (21:38)
[2019-03-02] VITALS (15 sets, daily range): BP systolic 160–172; BP diastolic 77–94; PULSE 96–113; RESP 18–24; TEMP 36.3–36.7; O2SAT 85–96
[2019-03-02] MEDS: Ipratropium/Albuterol Sulfate 3 ML AMPUL.NEB INHALATION ×3 (02:58→14:07)
[2019-03-02] MEDS: 0.9% Normal Saline 1,000 ML 75 ML IV (06:24)
[2019-03-02] MEDS: Lisinopril 40 MG Tablet PO (09:40)
[2019-03-02] MEDS: Azithromycin 250 MG Tablet 500 MG PO (09:40)
[2019-03-02] MEDS: Aspirin 81 MG TAB.CHEW PO (09:40)
[2019-03-02] MEDS: Heparin Injection (Vial) 5,000 UNIT/ML VIAL 5000 UNIT SC (09:41)
[2019-03-02] MEDS: Albuterol 2.5 MG/3 ML VIAL.NEB. INHALATION ×2 (11:42→16:11)
--- NOTE | 2019-03-02 12:09 | PCM.CONS.PUL ---
Problem List (1) COPD with exacerbation Status: Acute (2) Hyponatremia Status: Acute (3) Hypoxia Status: Acute (4) Stage 3 severe COPD by GOLD classification Status: Chronic (5) Lung nodule Status: Chronic Comment: JITENDRA noted 05/05/18 (6) TIA (transient ischemic attack) Status: Resolved (7) HTN (hypertension) Status: Chronic Qualifiers: Hypertension type: essential hypertension Qualified Code(s): I10 - Essential (primary) hypertension (8) HLD (hyperlipidemia) Status: Chronic Qualifiers: Hyperlipidemia type: pure hypercholesterolemia Qualified Code(s): E78.00 - Pure hypercholesterolemia, unspecified; E78.0 - Pure hypercholesterolemia Reason for Consult Date of Consultation: 03/02/19 Reason for Consultation: COPD exacerbation History of Present Illness: The patient is a 78 year old F, with past medical history listed below and well-known to me from the outpatient office, who presented was [facility] on 02/28/2019 secondary to 1 week of progressive shortness of breath. Patient denied any fever or chills, but had a progressive cough that she described as a cold. Patient had attempted using her as needed albuterol with little effect. Patient states she did attempt using Mucinex, leftover amoxicillin and bronchodilators with little effect. Patient did not attempt to call our office to ask for assistance prior to presenting to the ER. In the ER, patient was noted to be hypoxic on room air and was placed on supplemental oxygen. EKG showed sinus tachycardia with a rate of 110 bpm. Patient was placed on Solu-Medrol, aerosols and 3 L nasal cannula oxygen. Chest x-ray did not show any significant consolidation, but a CTA of the chest did show tree-in-bud pattern. No PE was noted. Patient was admitted to the floor and initiated on therapy. Patient reports some subjective improvement since beginning her hospitalization. Patient states she still has significant dyspnea on exertion and places her exercise tolerance at approximately 6 to 8 feet. Patient states that she has significant symptoms with going to the bathroom. Patient does state that she feels the medications are working, but slowly. Patient denies any current chest pain, aniceto pain, nausea or vomiting. No unintentional weight loss or hemoptysis has been reported. Patient has not had any fever throughout the hospitalization. Patient denies any dysuria, abdominal pain, nausea or vomiting. Patient does have relatively advanced lung disease by PFT criteria. Patient also has shown significant desaturation in the past, but not enough to require supplemental oxygen. Patient denies any noxious exposures leading to the current presentation. Review of systems otherwise negative from a constitutional, HEENT, respiratory, cardiovascular, GI, genitourinary, musculoskeletal, skin, neurologic, psychiatric and hematologic system unless stated above. Past Medical History Past Medical History (Chronic Problems): Chronic Problems (Last Updated 02/28/19 @ 15:35 by Onofre Glynn DO) Stage 3 severe COPD by GOLD classification (Chronic) Lung nodule (Chronic) JITENDRA noted 05/05/18 HTN (hypertension) (Chronic) HLD (hyperlipidemia) (Chronic) ETOH abuse (Chronic) Medical History: Medical History (Last Updated 02/28/19 @ 15:35 by Onofre Glynn DO) Rectal bleeding (Resolved) K62.5 Alcohol abuse F10.10 Arthritis M19.90 Brain tumor D49.6 Breast lump N63.0 Cataract H26.9 Hearing loss H91.90 Hearing problem H91.90 Impaired fasting glucose R73.01 Osteopenia M85.80 Solitary pulmonary nodule R91.1 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 Hypertension I10 Allergies No Known Allergies Allergy (Verified 02/28/19 14:47) Home Medications: Ambulatory Orders Medication Instructions Recorded lisinopril 40 mg tablet 40 mg PO DAILY 11/22/17 Aspirin [Aspirin, Baby] 81 mg PO DAILY@0800 #30 tab.chew 05/06/18 Atorvastatin Calcium [Lipitor] 40 mg PO QHS #30 tab 05/06/18 Albuterol Inhaler [Ventolin Hfa 2 puff INHALATION Q6H PRN PRN 02/28/19 (SP)] Glycopyrrolate/Formoterol Fum 2 puff INHALATION BID 02/28/19 [Bevespi Aerosphere Inhaler] Surgical History: Surgical History (Last Reviewed 11/22/18 @ 10:59 by LARY Mehta) History of appendectomy Z90.49 History of breast biopsy Z98.890 History of cataract surgery Z98.49 History of left hip replacement Z96.642 History of ovarian cystectomy Z98.890, Z87.42 History of cranial surgery Z98.890 Surgical History: - - Appendectomy, breast biopsy unclear side, cataract surgery, left hip replacement, left ovarian cyst intervention. Psychiatric History: No pertinent psych hx [employer] History: No pertinent [employer]IST history Lives: Spouse/ Significant Other Smoking Status: Former smoker Tobacco Use: Non-smoker Alcohol: Occasional Drugs: None - *Family History Maternal Family History: Family History (Last Reviewed 11/22/18 @ 10:59 by LARY Mehta) Mother Malignant neoplasm of skin Arthritis Osteoporosis Aunt CVA (cerebral vascular accident) Grandfather Asthma CVA (cerebral vascular accident) Father Asthma History Items: - - Patient notes a maternal family history of osteoporosis, osteoarthritis, skin cancer. Paternal Family History: Family History (Last Reviewed 11/22/18 @ 10:59 by LARY Mehta) Mother Malignant neoplasm of skin Arthritis Osteoporosis Aunt CVA (cerebral vascular accident) Grandfather Asthma CVA (cerebral vascular accident) Father Asthma History Items: - - Patient notes a paternal family history of asthma. Review of Systems Comment: See HPI Patient Problems: Active and Suspected Problems (Last Updated 02/28/19 @ 15:35 by Onofre Glynn DO) COPD with exacerbation (Acute) Hyponatremia (Acute) Hypoxia (Acute) Shortness of breath (Acute) Cough (Acute) Objective: All imaging was personally reviewed. Described in HPI. Complete PFT (02/16/2019): Irreversible moderately severe large airways obstructive ventilatory defect with a symmetric reduction diffusing capacity (FVC 105%, FEV1 54%, TLC 99%, DLCO 78%) Patient also had an echocardiogram 05/05/2018 showing an EF of 65% with stage II diastolic dysfunction and mild to moderate mitral valve insufficiency. Pulmonary artery pressure was slightly elevated at 34 mmHg. - Physical Exam Vitals/I&O's: Vital Signs Temp Pulse Resp BP Pulse Ox 36.7 C 107 H 24 H 163/77 H 94 03/02/19 09:33 03/02/19 09:33 03/02/19 09:33 03/02/19 09:33 03/02/19 09:33 Oxygen Flow Rate (L/min) 2 Oxygen Delivery Method Nasal Cannula Weight: 66.253 kg Body Mass Index (BMI) 24.3 Finger Stick Blood Glucose 92 Intake and Output for Last 24 Hours 02/28/19 03/01/19 03/02/19 23:59 23:59 23:59 Intake Total 2428.75 / 2728.75 1513.75 / 1513.75 Balance 2428.75 / 2728.75 1513.75 / 1513.75 General: Alert, Oriented x3, Cooperative, - - Mild conversational dyspnea. Appears stated age. HEENT: Atraumatic, PERRLA, EOMI, Normocephalic, - - No scleral icterus or injection noted Oral: Moist Mucosa, No Gingival or Mucosal Lesions/ Ulcerations Neck: Supple, No JVD, No Nodes, Trachea Midline Lungs: No rhonchi, No rales, Diminished - Significantly, Wheezes, - - Symmetric expansion. Increased AP diameter. Cardiovascular: Normal S1, Normal S2, No murmurs, No rub noted, No Gallop, Tachycardic Abdomen: Bowel Sounds Present, Soft, Non Tender, Non-Distended Extremities: No clubbing, No cyanosis, No edema, Capillary Refill Less than 3 Seconds Skin: No rashes, No breakdown Musculoskeletal: No Tenderness to Palpation of Joints or Extremities Lymphatic: No Cervical, Supraclavicular, or Inguinal Adenopathy Neurological: Cranial nerves II-XII grossly intact, Neuro grossly intact, Motor Exam 5/5 strength throughout Psych/Mental Status: Alert and oriented to time, place, person, mood and affect Microbiology Past 72 Hours 02/28/19 15:40 Mucosa - Nasopharyngeal Respiratory Panel (PCR) - Final Current Medications Acetaminophen (Tylenol) 650 mg PO Q6H PRN PRN PRN Reason: Pain Score 1-3/Temp > 100.7 F Albuterol Sulfate (Ventolin Aerosols) 2.5 mg INHALATION Q2H PRN PRN PRN Reason: DYSPNEA Last Admin: 03/02/19 11:42 Dose: 2.5 mg Documented by: Albuterol/Ipratropium (Duoneb) 3 ml INHALATION Q6H.RT [facility] Last Admin: 03/02/19 07:59 Dose: 3 ml Documented by: Aspirin (Aspirin, Baby) 81 mg PO DAILY@0800 [facility] Last Admin: 03/02/19 09:40 Dose: 81 mg Documented by: Atorvastatin Calcium (Lipitor) 40 mg PO QHS [facility] Last Admin: 03/01/19 21:38 Dose: 40 mg Documented by: Heparin Sodium (Porcine) (Heparin Na) 5,000 unit SC Q12 [facility] Last Admin: 03/02/19 09:41 Dose: 5,000 unit Documented by: Sodium Chloride () 250 mls @ 15 mls/hr IV .[id number] PRN PRN Reason: Saline Flush Sodium Chloride () 1,000 mls @ 75 mls/hr IV .[id number] [facility] Last Admin: 03/02/19 06:24 Dose: 75 mls/hr Documented by: Lisinopril (Zestril) 40 mg PO DAILY [facility] Last Admin: 03/02/19 09:40 Dose: 40 mg Documented by: Methylprednisolone (Solu-Medrol) 40 mg IV Q8 [facility] Last Admin: 03/02/19 06:23 Dose: 40 mg Documented by: Sodium Chloride () 10 - 40 ml IV UD PRN PRN Reason: SALINE FLUSH Zolpidem Tartrate (Ambien (Generic)) 5 mg PO QHS PRN PRN PRN Reason: INSOMNIA Last Admin: 03/01/19 21:35 Dose: 5 mg Documented by: Clinical Impression(s) from Imaging Studies Chest X-Ray 02/28/19 11:10 IMPRESSION: Stable chest with no acute superimposed finding. Electronically Signed: Gorge Moreno MD at 12:14 EST , Service support , Chest CTA 02/28/19 12:44 IMPRESSION: No evidence of pulmonary embolus. No evidence of thoracic aortic aneurysm or dissection. Stable emphysema with a stable spiculated nodule in the left apex. Continued follow-up is recommended. New tree-in-bud nodules in both lungs, consistent with a mild infectious etiology. No focal infiltrates. No pleural effusions. No pneumothorax. Fatty liver. Electronically Signed: David Babcock, at 13:57 EST Tel , Service support , Assessment/Plan All Active Problems (Last Updated 02/28/19 @ 15:35 by Onofre Glynn DO) COPD with exacerbation (Acute) Hyponatremia (Acute) Hypoxia (Acute) Shortness of breath (Acute) Cough (Acute) Dyspnea (Acute) TIA (transient ischemic attack) (Resolved) Rectal bleeding (Resolved) RECOMMENDATIONS: 1. Continue IV steroids while hospitalized 2. Can be transition to 40 mg of prednisone and weaned over the next 12 to 14 days if discharged 3. Patient will need to follow-up 2 weeks after discharge with nurse practitioner 4. Walking oximetry prior to discharge 5. Consider improved blood pressure/heart rate control IMPRESSIONS: 1. Acute hypoxic respiratory insufficiency secondary to COPD exacerbation Clinical suspicion for viral etiology, but testing would be negative secondary to protracted course. Patient does appear to be responding to steroid therapy with improved air exchange per documentation. Previous pulmonary function tests were suggestive of an asthma/COPD overlap syndrome and CT scan is showing a tree-in-bud pattern consistent with bronchiolar obstruction, which explains current hypoxia. Patient should have a walking oximetry prior to discharge. Some concern if patient can only travel 6 to 8 feet for ability to tolerate this at home. However, if patient is discharged, Solu-Medrol should be transition to 40 mg of prednisone and wean over the next 12 to 14 days. Bronchodilators can be scheduled and patient should follow-up with nurse practitioner in our office in 2 weeks. We can reassess if supplemental oxygen will be required long-term at that time. Do not believe antibiotics are necessary at this time. 2. Chronic diastolic congestive heart failure Patient may benefit from improved heart rate and blood pressure control given history of diastolic congestive heart failure. Patient does not have significant lower extremity edema noted at this time, so I do not believe that this is the primary source of patient's hypoxia. No significant pleural effusions are noted on CT scan of the chest. Continue medical optimization. 3. Hypertension/hyperlipidemia/hyponatremia/advanced age/lung nodule Complicates care, management, recovery and prognosis. Lung nodule appears to be stable compared to CT earlier this year. Hyponatremia appears to be responding to therapy. Okay to continue with baseline medications from my perspective. Code Visit Inpatient E&M: 96060 Init Hosp L3
[2019-03-02 12:15] LABS: Pathologist Review Reviewed
--- NOTE | 2019-03-02 14:02 | DCINST_ITS ---
- Discharge Diagnoses Current Active Problems: Current Active and Chronic Problems (Last Updated 02/28/19 @ 15:35 by Onofre Glynn DO) COPD with exacerbation (Acute) Hyponatremia (Acute) Hypoxia (Acute) Shortness of breath (Acute) Cough (Acute) You will use the following diet at home:: No restrictions Your food should be the consistency of: Regular Your liquids should be the consistency of: Regular/Thin Discharge Activity: Return to Normal Activity Weight Bearing Status: Full weight bearing Additional Instructions: oxygen 3 liters on activity, 2 liters at rest Allergies/Adverse Reactions: Allergies No Known Allergies Allergy (Verified 02/28/19 14:47) Medications to take at Discharge lisinopril 40 mg tablet 40 mg PO DAILY 11/22/17 Aspirin [Aspirin, Baby] 81 mg PO DAILY@0800 #30 tab.chew 05/06/18 Atorvastatin Calcium [Lipitor] 40 mg PO QHS #30 tab 05/06/18 Glycopyrrolate/Formoterol Fum [Bevespi Aerosphere Inhaler] 2 puff INHALATION BID 02/28/19 Albuterol Inhaler [Ventolin Hfa] 2 puff INHALATION [id number] PRN #1 inhaler 03/02/19 Prednisone 10 mg PO UD #30 tab 03/02/19 The following prescriptions were given: Prednisone 10 mg PO UD #30 tab Prescription Printed Albuterol Inhaler [Ventolin Hfa] 2 puff INHALATION [id number] PRN #1 inhaler PRN Reason: Sob &/Or Wheezing Primary Care Physician: Rustam Castro MD [Primary Care Provider] - Please follow up with your Primary Care Physician in: in one week Test Results: Test results from this visit will be discussed in further detail at your follow- up appointment, if applicable. Please Follow Up With: Jonathan Armenta MD When: in 2 weeks
--- NOTE | 2019-03-02 14:31 | CASEMGMT ---
VENKAT NARANJO updated that patient will need home oxygen at discharge. VENKAT NARANJO in to confirm DME company with patient. Patient would like [facility]. VENKAT NARANJO received script and referral sent to [facility]. VENKAT NARANJO arranged to have oxygen delivered to room prior to discharge.
--- NOTE | 2019-03-02 15:28 | PCM.PROGNOTE ---
Patient Problems: Active and Suspected Problems (Last Updated 02/28/19 @ 15:35 by Onofre Glynn DO) COPD with exacerbation (Acute) Hyponatremia (Acute) Hypoxia (Acute) Shortness of breath (Acute) Cough (Acute) Subjective: The date of this entry is 03/01/2019: Patient was seen and examined today, I talked briefly with her who was in her room today, patient is still requiring oxygen, I tried to wean her to room air but was unsuccessful today. Patient denies any chills or fever. - Physical Exam Vitals/I&O's: Vital Signs Temp Pulse Resp BP Pulse Ox 98.1 F 113 H 24 H 163/77 H 85 03/02/19 09:33 03/02/19 14:07 03/02/19 14:07 03/02/19 09:33 03/02/19 13:12 Oxygen Flow Rate (L/min) [ 3 AMBULATION with Oxygen] Oxygen Flow Rate (L/min) 2 Oxygen Delivery Method Nasal Cannula Weight: 66.253 kg Body Mass Index (BMI) 24.3 Finger Stick Blood Glucose 92 Intake and Output for Last 24 Hours 02/28/19 03/01/19 03/02/19 23:59 23:59 23:59 Intake Total 2428.75 / 2728.75 1513.75 / 1513.75 Balance 2428.75 / 2728.75 1513.75 / 1513.75 General: Alert, Oriented x3, Cooperative, No apparent distress, Well developed HEENT: Atraumatic, PERRLA, EOMI, Normocephalic Oral: Moist Mucosa Neck: Supple, Trachea Midline, Thyroid Normal Size and Texture Lungs: Diminished, Wheezes - Scattered expiratory wheezes bilaterally are noted Cardiovascular: Regular rate, Regular Rhythm, Normal S1, Normal S2, No murmurs, PMI Normal, No rub noted, No Gallop Abdomen: Bowel Sounds Present, Soft, Non Tender, Non-Distended Extremities: No clubbing, No cyanosis, No edema, Capillary Refill Less than 3 Seconds Skin: No rashes, No breakdown Musculoskeletal: No Tenderness to Palpation of Joints or Extremities Neurological: Cranial nerves II-XII grossly intact, Neuro grossly intact, Sensory exam intact to light touch and pain, Coordination normal Psych/Mental Status: Normal Affect, Appropriate, Alert and oriented to time, place, person, mood and affect Microbiology Past 72 Hours 02/28/19 15:40 Mucosa - Nasopharyngeal Respiratory Panel (PCR) - Final Laboratory Results 02/28/19 10:16: Diff Path Review Reviewed Current Medications Acetaminophen (Tylenol) 650 mg PO Q6H PRN PRN PRN Reason: Pain Score 1-3/Temp > 100.7 F Albuterol Sulfate (Ventolin Aerosols) 2.5 mg INHALATION Q2H PRN PRN PRN Reason: DYSPNEA Last Admin: 03/02/19 11:42 Dose: 2.5 mg Documented by: Albuterol/Ipratropium (Duoneb) 3 ml INHALATION Q6H.RT [facility] Last Admin: 03/02/19 14:07 Dose: 3 ml Documented by: Aspirin (Aspirin, Baby) 81 mg PO DAILY@0800 [facility] Last Admin: 03/02/19 09:40 Dose: 81 mg Documented by: Atorvastatin Calcium (Lipitor) 40 mg PO QHS [facility] Last Admin: 03/01/19 21:38 Dose: 40 mg Documented by: Heparin Sodium (Porcine) (Heparin Na) 5,000 unit SC Q12 [facility] Last Admin: 03/02/19 09:41 Dose: 5,000 unit Documented by: Sodium Chloride () 250 mls @ 15 mls/hr IV .[id number] PRN PRN Reason: Saline Flush Sodium Chloride () 1,000 mls @ 75 mls/hr IV .[id number] [facility] Last Admin: 03/02/19 06:24 Dose: 75 mls/hr Documented by: Lisinopril (Zestril) 40 mg PO DAILY [facility] Last Admin: 03/02/19 09:40 Dose: 40 mg Documented by: Methylprednisolone (Solu-Medrol) 40 mg IV Q8 [facility] Last Admin: 03/02/19 06:23 Dose: 40 mg Documented by: Sodium Chloride () 10 - 40 ml IV UD PRN PRN Reason: SALINE FLUSH Zolpidem Tartrate (Ambien (Generic)) 5 mg PO QHS PRN PRN PRN Reason: INSOMNIA Last Admin: 03/01/19 21:35 Dose: 5 mg Documented by: Medical Necessity - Tobacco Use Smoking Status: Former smoker Tobacco Use: Non-smoker Assessment/Plan All Active Problems (Last Updated 02/28/19 @ 15:35 by Onofre Tereletsky, DO) COPD with exacerbation (Acute) Hyponatremia (Acute) Hypoxia (Acute) Shortness of breath (Acute) Cough (Acute) Dyspnea (Acute) TIA (transient ischemic attack) (Resolved) Rectal bleeding (Resolved) #1 exacerbation of COPD-continue present treatment, I will try to wean the patient off oxygen again tomorrow #2 hypoxia secondary to #1-pulse ox will be monitored #3 essential hypertension-blood pressure will be monitored #4 hyperlipidemia #5 hyponatremia-etiology unclear Code Visit Inpatient E&M: 36709 Subs Hosp L2
--- NOTE | 2019-03-02 15:30 | DS.PCM_ITS ---
Discharge Date and Diagnosis - Problem List Patient Problems: Active and Suspected Problems (Last Updated 02/28/19 @ 15:35 by Onofre Glynn DO) COPD with exacerbation (Acute) Hyponatremia (Acute) Hypoxia (Acute) Shortness of breath (Acute) Cough (Acute) Date of Admission: 02/28/19 Date of Discharge: 03/02/19 - Primary Discharge Diagnosis Active and Suspected Problems (Last Updated 02/28/19 @ 15:35 by Onofre Glynn DO) COPD with exacerbation (Acute) Hyponatremia (Acute)-etiology unknown Hypoxia (Acute) Essential hypertension Hyperlipidemia - Secondary Discharge Diagnosis Chronic Problems (Last Updated 02/28/19 @ 15:35 by Onofre Glynn DO) Stage 3 severe COPD by GOLD classification (Chronic) Lung nodule (Chronic) JITENDRA noted 05/05/18 HTN (hypertension) (Chronic) HLD (hyperlipidemia) (Chronic) ETOH abuse (Chronic) Hospital Course and Treatment Operations: None Procedures: None Summary of Care Provided: The patient is a 78 year old F was seen in the emergency room at [facility] with a chief with shortness of breath, work-up in the emergency room included a CTA of her chest which showed no evidence of pulmonary embolism, mild emphysematous changes were noted in the lungs. The spiculated nodules noted in the left upper lobe which was stable compared with the prior CT that was done earlier in the year. No infiltrates were noted. Patient's pulse ox on room air at rest was 86%, white blood cell count was slightly elevated at 14.6. Patient's potassium was 3.4 and sodium was 121. Patient was admitted to [place] [address], she was given aerosol treatments IV Solu-Medrol and oral Zithromax, patient's respiratory status stabilized but she was unable to be weaned from her oxygen. She was seen in consultation by pulmonary medicine. On 03/02/2019, patient was seen and examined: On examination she appeared in good health and spirits. Vital signs as documented. Skin warm and dry and without overt rashes. Neck without JVD. Lungs-scattered expiratory wheezes were noted bilaterally, breath sounds were diminished bilaterally. Heart exam notable for regular rhythm, normal sounds and absence of murmurs, rubs or gallops. Abdomen unremarkable and without evidence of organomegaly, masses, or abdominal aortic enlargement. Extremities nonedematous. Neuro: Cranial nerves II through XII are grossly intact, no focal motor deficits were noted, sensation to light touch and pinprick is intact. Psych: Patient is alert and oriented x3, she does not appear anxious or depressed On 03/02/2019, patient was seen and examined, she required 3 L of oxygen on ambulation to maintain her pulse ox above 88%, she required 2 L of oxygen at rest to maintain her pulse ox above 88%. She was expected to wear oxygen at rest and when ambulating and when outside the home. She was set up for home O2. Patient appears stable for discharge on 03/02/2019. Patient Problems: Active and Suspected Problems (Last Updated 02/28/19 @ 15:35 by Onofre Glynn DO) COPD with exacerbation (Acute) Hyponatremia (Acute) Hypoxia (Acute) Shortness of breath (Acute) Cough (Acute) - Physical Exam Vitals/I&O's: Vital Signs Temp Pulse Resp BP Pulse Ox 98.1 F 113 H 24 H 163/77 H 85 03/02/19 09:33 03/02/19 14:07 03/02/19 14:07 03/02/19 09:33 03/02/19 13:12 Oxygen Flow Rate (L/min) [ 3 AMBULATION with Oxygen] Oxygen Flow Rate (L/min) 2 Oxygen Delivery Method Nasal Cannula Weight: 66.253 kg Body Mass Index (BMI) 24.3 Finger Stick Blood Glucose 92 Intake and Output for Last 24 Hours 02/28/19 03/01/19 03/02/19 23:59 23:59 23:59 Intake Total 2428.75 / 2728.75 1513.75 / 1513.75 Balance 2428.75 / 2728.75 1513.75 / 1513.75 Microbiology Past 72 Hours 02/28/19 15:40 Mucosa - Nasopharyngeal Respiratory Panel (PCR) - Final Laboratory Results 02/28/19 10:16: Diff Path Review Reviewed Current Medications Acetaminophen (Tylenol) 650 mg PO Q6H PRN PRN PRN Reason: Pain Score 1-3/Temp > 100.7 F Albuterol Sulfate (Ventolin Aerosols) 2.5 mg INHALATION Q2H PRN PRN PRN Reason: DYSPNEA Last Admin: 03/02/19 11:42 Dose: 2.5 mg Documented by: Albuterol/Ipratropium (Duoneb) 3 ml INHALATION Q6H.RT [facility] Last Admin: 03/02/19 14:07 Dose: 3 ml Documented by: Aspirin (Aspirin, Baby) 81 mg PO DAILY@0800 [facility] Last Admin: 03/02/19 09:40 Dose: 81 mg Documented by: Atorvastatin Calcium (Lipitor) 40 mg PO QHS [facility] Last Admin: 03/01/19 21:38 Dose: 40 mg Documented by: Heparin Sodium (Porcine) (Heparin Na) 5,000 unit SC Q12 [facility] Last Admin: 03/02/19 09:41 Dose: 5,000 unit Documented by: Sodium Chloride () 250 mls @ 15 mls/hr IV .[id number] PRN PRN Reason: Saline Flush Sodium Chloride () 1,000 mls @ 75 mls/hr IV .[id number] [facility] Last Admin: 03/02/19 06:24 Dose: 75 mls/hr Documented by: Lisinopril (Zestril) 40 mg PO DAILY [facility] Last Admin: 03/02/19 09:40 Dose: 40 mg Documented by: Methylprednisolone (Solu-Medrol) 40 mg IV Q8 [facility] Last Admin: 03/02/19 06:23 Dose: 40 mg Documented by: Sodium Chloride () 10 - 40 ml IV UD PRN PRN Reason: SALINE FLUSH Zolpidem Tartrate (Ambien (Generic)) 5 mg PO QHS PRN PRN PRN Reason: INSOMNIA Last Admin: 03/01/19 21:35 Dose: 5 mg Documented by: Discharge Activity: Return to Normal Activity Weight Bearing Status: Full weight bearing Home Medications: Medications to take at Discharge lisinopril 40 mg tablet 40 mg PO DAILY 11/22/17 Aspirin [Aspirin, Baby] 81 mg PO DAILY@0800 #30 tab.chew 05/06/18 Atorvastatin Calcium [Lipitor] 40 mg PO QHS #30 tab 05/06/18 Glycopyrrolate/Formoterol Fum [Bevespi Aerosphere Inhaler] 2 puff INHALATION BID 02/28/19 Albuterol Inhaler [Ventolin Hfa] 2 puff INHALATION [id number] PRN #1 inhaler 03/02/19 Prednisone 10 mg PO UD #30 tab 03/02/19 Following Prescrptions Were Given to Patient: Prednisone 10 mg PO UD #30 tab Prescription Printed Albuterol Inhaler [Ventolin Hfa] 2 puff INHALATION [id number] PRN #1 inhaler PRN Reason: Sob &/Or Wheezing Primary Care Physician: Rustam Castro MD [Primary Care Provider] - Please follow up with your Primary Care Physician in: in one week Please Follow Up With: Jonathan Armenta MD When: in 2 weeks Please Follow Up With: Rustam Castro MD When: Tuesday Disposition: Home Minutes spent on discharge:: 31 Patient Condition:: Stable Medical Necessity - Tobacco Use Smoking Status: Former smoker Tobacco Use: Non-smoker Meaningful Use Info Meaningful Use Diagnoses (Choose all that apply): None applicable Code Visit Inpatient E&M: 87826 Disch Hosp
[2019-03-02] MEDS: 0.9% Saline Lock 10 ML Syringe IV (16:07)
== END 2019-03-02 17:25 | disposition home or self-care (01) | DRG 191 ==
LOC: ED 14:00 → MS3 14:06
PROVIDERS: Admitting Provider Internal Medicine; Emergency Provider Emergency Medicine; Family Provider Family Medicine; PCP Family Medicine; Visit Provider Internal Medicine
DX: J44.1 Chronic obstructive pulmonary disease with (acute) exacerbation (principal); E87.1 Hypo-osmolality and hyponatremia; I50.32 Chronic diastolic (congestive) heart failure; R09.02 Hypoxemia; Z87.891 Personal history of nicotine dependence; I11.0 Hypertensive heart disease with heart failure; R91.1 Solitary pulmonary nodule; E78.5 Hyperlipidemia, unspecified; F10.10 Alcohol abuse, uncomplicated
CPT/HCPCS: 36415; 71046; 71275; 80048; 85025; 87633; 93005; 94640; 99251; 99285; J7030; Q9967; A4216; G0463

== ENCOUNTER → 2019-04-02 10:40 | Outpatient (CLI) | payer MEDICARE, SELFPAY ==
[2019-03-19 08:45] VITALS: BMI 24.5
--- NOTE | 2019-04-02 10:41 | ECHOD_ITS ---
Version 2 Reason For Study: DYSPNEA/SOB Procedure This was a 2D Doppler, Color Flow transthoracic echocardiogram. The study was technically difficult. Due to body habitus and COPD w/exacerbation. Exam performed in department. Left Ventricle Normal LV size. Sigmoid septum. Left ventricular systolic function is normal. The estimated ejection fraction is 62 %. Stage 2 diastolic dysfunction. No regional wall motion abnormalities noted. Right Ventricle Normal RV size. Normal systolic function. Atria Normal left atrium. Normal right atrium. Mitral Valve There is mild mitral annular calcification. Mild (1+) eccentric mitral valve insufficiency. Tricuspid Valve Normal tricuspid valve. Mild (1+) tricuspid valve insufficiency. Pulmonary artery systolic pressure is 30 mmHg. Aortic Valve The aortic valve is not well visualized. Pulmonic Valve The pulmonic valve is not well visualized. Great Vessels Normal aortic root. The pulmonary artery is normal size. Normal inferior vena cava. Pericardium/Pleural No pericardial effusion. MMode/2D Measurements & Calculations LVIDd: 3.9 cm IVSd: 1.0 cm Ao root diam: 2.9 cm LVIDs: 2.6 cm LVPWd: 0.98 cm RVDd: 3.0 cm FS: 32.8 % LAV(MOD-bp): 63.2 ml LA A4 area: 17.4 cm2 LA dimension(2D): 3.1 cm LAV(MOD-bp) Indexed: 36.4 ml/m2 LAV(MOD-sp2): 58.3 ml LAV(MOD-sp4): 53.8 ml RA A4 area: 12.2 cm2 Time Measurements MV dec time: 0.11 sec Doppler Measurements & Calculations MV E max kt: 96.1 cm/sec Lat Peak E' Kt: 8.5 cm/sec Med Peak E' Kt: 7.2 cm/sec MV A max kt: 111.7 cm/sec E/E' lat: 11.3 E/E' med: 13.3 MV E/A: 0.86 Ao V2 max: 158.8 cm/sec LV V1 max: 136.5 cm/sec TR max kt: 261.1 cm/sec Ao max P.1 mmHg LV V1 max P.5 mmHg TR max P.3 mmHg Interpretation Summary Normal LV size. Left ventricular systolic function is normal. The estimated ejection fraction is 62 %. Stage 2 diastolic dysfunction. Pulmonary artery systolic pressure is 30 mmHg. Ordering Physician: Anushka^Victoria^^^[employer]-C Referring Physician: Rustam Castro Performed By: Jaylin Weaver, KARYNA, RVT
== END ==
PROVIDERS: PCP Family Medicine; Referring Provider Nurse Practitioner Acute Care; Visit Provider Nurse Practitioner Acute Care
DX: R06.02 Shortness of breath (principal); R06.00 Dyspnea, unspecified
CPT/HCPCS: 93306

== ENCOUNTER → 2019-04-16 | Outpatient (CLI) | payer MEDICARE, SELFPAY ==
[2019-03-19 08:45] VITALS: BMI 24.5
[2019-04-16 13:40] VITALS: PULSE 100; PULSE 106; PULSE 111; PULSE 119; PULSE 120; PULSE 130; PULSE 95; O2SAT 85; O2SAT 92; O2SAT 94; O2SAT 95; O2SAT 96; O2SAT 98
--- NOTE | 2019-04-16 13:42 | CPS ---
Patient came in on 3 lpm pulse dose. States she wears 2 lpm continuous at home and 3 lpm pulse dose when outside the home. Patient sat on room air for 10+ minutes, stated that when she checks her O2 at home she can maintain an SpO2 >90% when sitting. Started the testing on room air, SpO2 94%. At the 2nd minute patient's SpO2 dropped to 85%, placed patient on 3 lpm pulse dose. Patient recoverd quickly to 98% and was able to finish the walk on 3 lpm pulse dose.
--- NOTE | 2019-04-17 09:25 | PCM.PSN.6M ---
PSN 6 Minute Walk Test - 6 Minute Walk Test 6 Minute Walk Test: 6 Minute Walk Test PSN:6-Minute Walk Test Start: 04/16/19 13:40 Freq: Status: Active Protocol: [id number] Document 04/16/19 13:40 MICHAELCLYDESAUL (Rec: 04/16/19 13:45 MICHAELCLYDEON [id number]) 6 Minute Walk Test Date Performed 04/16/19 Time Performed 11:00 Height 5 ft 5 in Weight: 148 lb Weight in Pounds 148.[address]: Jonathan Armenta Assistive device used: None Pre-test Oxygen Delivery Method Room Air Pulse Ox (%) 94 Pulse Rate (60-100 beats/min) 100 Dyspnea Mahad Scale (0-10) 0 Exertion Mahad Scale (6-20) 6 1st minute Oxygen Delivery Method Room Air Pulse Ox (%) 92 Pulse Rate (60-100 beats/min) 120 H 2nd minute Oxygen Delivery Method Room Air Pulse Ox (%) 85 Pulse Rate (60-100 beats/min) 130 H Dyspnea Mahad Scale (0-10) 5 3rd minute Oxygen Flow Rate (L/min) (L/min) 3 Oxygen Delivery Method Nasal Cannula Pulse Ox (%) 96 Pulse Rate (60-100 beats/min) 106 H 4th minute Oxygen Flow Rate (L/min) (L/min) 3 Oxygen Delivery Method Nasal Cannula Pulse Ox (%) 95 Pulse Rate (60-100 beats/min) 106 H 5th minute Oxygen Flow Rate (L/min) (L/min) 3 Oxygen Delivery Method Nasal Cannula Pulse Ox (%) 94 Pulse Rate (60-100 beats/min) 111 H 6th minute Oxygen Flow Rate (L/min) (L/min) 3 Oxygen Delivery Method Nasal Cannula Pulse Ox (%) 92 Pulse Rate (60-100 beats/min) 119 H Dyspnea Mahad Scale (0-10) 4 Exertion Mahad Scale (6-20) 14 Post-test Oxygen Flow Rate (L/min) (L/min) 3 Oxygen Delivery Method Nasal Cannula Pulse Ox (%) 98 Pulse Rate (60-100 beats/min) 95 Full Laps Walked 14 Partial Lap, Number of Tiles Walked 18 Total Distance Walked (ft) 844 04/16/19 13:42 Cardiopulmonary Services by Rebecca Caceres Patient came in on 3 lpm pulse dose. States she wears 2 lpm continuous at home and 3 lpm pulse dose when outside the home. Patient sat on room air for 10+ minutes, stated that when she checks her O2 at home she can maintain an SpO2 >90% when sitting. Started the testing on room air, SpO2 94%. At the 2nd minute patient's SpO2 dropped to 85%, placed patient on 3 lpm pulse dose. Patient recoverd quickly to 98% and was able to finish the walk on 3 lpm pulse dose. Initialized on 04/16/19 13:42 - END OF NOTE - Interpretation Interpretation: The patient ambulated 844 feet over the course of 6 minutes beginning on room air without assistive devices or breaks. Pretesting oxygen saturation was noted to be 94% on room air. With ambulation, the mena oxygen saturation was 85%. 3 L/min of pulse dose supplemental oxygen was applied and the patient was able to complete the remainder of the test while maintaining appropriate oxygen saturations. - Recommendations Recommendations: 3 L/min of pulse dose supplemental oxygen should be utilized with exertion.
== END | disposition home or self-care (01) ==
LOC: PSN 10:53
PROVIDERS: Family Provider Family Medicine; PCP Family Medicine; Referring Provider Nurse Practitioner Acute Care; Visit Provider Nurse Practitioner Acute Care
DX: R06.02 Shortness of breath (principal)
CPT/HCPCS: 94618

== ENCOUNTER → 2020-02-04 10:56 | Outpatient (CLI) | payer MEDICARE, SELFPAY ==
[2019-11-15 09:58] VITALS: BMI 25.0
[2020-02-04 12:53] LABS: Absolute Lymphocyte Count 1.55 X10^3/uL (0.83-4.51); Absolute Neutrophil Count 2.8 X10^3/uL (2.0-7.7); Basophil# 0.07 X10^3/uL; Basophil% 1.4 % (0-1); Eosinophil# 0.05 X10^3/uL; Hematocrit 43.4 % (37-47); Hemoglobin 13.6 g/dL (12.0-15.0); Lymphocyte # 1.55 X10^3/ul (4.0); Lymphocyte % 30.8 % (19-41); Mean Corp Hgb Conc 31.3 g/dL (32-36); Mean Corpuscular Hgb 32.9 pg (27.0-32.0); Mean Corpuscular Volume 105.1 fL (81-99); Mean Platelet Vol. 9.7 fl (6.2-12.0); Monocyte# 0.54 X10^3/uL; Monocyte% 10.7 % (0-10); NRBC Flagged by Analyzer 0 % (0-5); Neutrophil # 2.79 X10^3/uL (2.7-7.7); Neutrophil % 55.5 % (47-70); Platelet Count 294 K/mm3 (150-450); RBC Distribution Width CV 12.5 % (11.6-14.6); RBC Distribution Width SD 48.8 fl (35.1-43.9); Red Blood Count 4.13 M/mm3 (4.2-5.4)
[2020-02-04 13:12] LABS: ALB/GLOB Ratio 1.1 RATIO (0.9-2.4); AST(SGOT) 87 U/L (15-37); Alanine Aminotransfer ALT/SGPT 126 U/L (13-56); Alkaline Phosphatase 63 U/L (45-117); Anion Gap 4 (5-15); BUN 13 mg/dL (7-18); BUN/Creat Ratio 15.2 RATIO (10-20); Calcium,Total 9.3 mg/dL (8.5-10.1); Chloride 105 mmol/L (98-107); Creatinine, Serum 0.85 mg/dL (0.55-1.02); EST Glomerular Filtration Rate 68 mL/min (>60); Est Glom Filt Rate - Afr Amer 82 mL/min (>60); Globulin 3.5 g/dL (2.2-4.2); Glucose 104 mg/dL (74-106); Potassium 4.3 mmol/L (3.5-5.1); Protein, Total 7.5 g/dL (6.4-8.2); Sodium Level 138 mmol/L (136-145); Thyroid Stim Hormone (TSH) 1.67 uIU/mL (0.358-3.74)
== END ==
PROVIDERS: PCP Family Medicine; Visit Provider Family Medicine
DX: I10 Essential (primary) hypertension (principal); E07.9 Disorder of thyroid, unspecified; E78.5 Hyperlipidemia, unspecified
CPT/HCPCS: 36415; 80053; 84443; 85025

== ENCOUNTER → 2020-02-26 11:00 | Outpatient (CLI) | payer MEDICARE, SELFPAY ==
[2019-11-15 09:58] VITALS: BMI 25.0
[2020-02-21 12:54] VITALS: BMI 25.9
[2020-02-26 12:27] LABS: Absolute Lymphocyte Count 1.07 X10^3/uL (0.83-4.51); Absolute Neutrophil Count 2.4 X10^3/uL (2.0-7.7); Basophil# 0.02 X10^3/uL; Basophil% 0.5 % (0-1); Eosinophil# 0.01 X10^3/uL; Eosinophils% 0.3 % (0-5); Hematocrit 43.4 % (37-47); Hemoglobin 13.9 g/dL (12.0-15.0); Lymphocyte # 1.07 X10^3/ul (4.0); Mean Corpuscular Hgb 32.6 pg (27.0-32.0); Mean Corpuscular Volume 101.6 fL (81-99); Mean Platelet Vol. 9.9 fl (6.2-12.0); Monocyte# 0.48 X10^3/uL; Monocyte% 12.1 % (0-10); NRBC Flagged by Analyzer 0 % (0-5); Neutrophil # 2.38 X10^3/uL (2.7-7.7); Neutrophil % 59.8 % (47-70); Platelet Count 209 K/mm3 (150-450); RBC Distribution Width CV 11.9 % (11.6-14.6); RBC Distribution Width SD 45.1 fl (35.1-43.9); Red Blood Count 4.27 M/mm3 (4.2-5.4)
[2020-02-26 12:54] LABS: AST(SGOT) 45 U/L (15-37); Alanine Aminotransfer ALT/SGPT 74 U/L (13-56); Albumin, Serum 3.7 g/dL (3.2-5.0); Alkaline Phosphatase 67 U/L (45-117); Anion Gap 4 (5-15); BUN 12 mg/dL (7-18); Calcium,Total 8.7 mg/dL (8.5-10.1); Chloride 100 mmol/L (98-107); EST Glomerular Filtration Rate 74 mL/min (>60); Est Glom Filt Rate - Afr Amer 89 mL/min (>60); Globulin 3.7 g/dL (2.2-4.2); Glucose 91 mg/dL (74-106); Protein, Total 7.4 g/dL (6.4-8.2); Sodium Level 134 mmol/L (136-145)
== END ==
PROVIDERS: PCP Family Medicine; Visit Provider Family Medicine
DX: D53.1 Other megaloblastic anemias, not elsewhere classified (principal); R74.01 Elevation of levels of liver transaminase levels
CPT/HCPCS: 36415; 80053; 85025

== ENCOUNTER 2020-05-27 08:43 | Outpatient (CLI) | payer MEDICARE, SELFPAY ==
[2020-02-21 12:54] VITALS: BMI 25.9
[2020-05-27 08:54] VITALS: BP 155/73; PULSE 95; RESP 14; TEMP 36.2; O2SAT 95; BMI 25.7
[2020-05-27] MEDS: 0.9% NaCl IVPB Med Flush (250 mL) 15 ML IV (09:01)
[2020-05-27] MEDS: 0.9% NaCl Peripheral Flush Adult/Peds IV ×2 (09:01→10:05)
[2020-05-27 10:06] VITALS: BP 123/67; PULSE 93; RESP 16; TEMP 36.3; O2SAT 94
== END 2020-05-27 12:00 | disposition home or self-care (01) ==
PROVIDERS: PCP Family Medicine
DX: A49.1 Streptococcal infection, unspecified site (principal)
CPT/HCPCS: 96365; J7050; A4216; J0696

== ENCOUNTER 2020-05-28 09:56 | Outpatient (CLI) | payer MEDICARE, SELFPAY ==
[2020-05-27 08:54] VITALS: BMI 25.7
[2020-05-28 10:18] VITALS: BP 136/65; PULSE 100; RESP 20; TEMP 36.3; O2SAT 98; BMI 25.7
[2020-05-28] MEDS: 0.9% NaCl IVPB Med Flush (250 mL) 15 ML IV (10:22)
[2020-05-28] MEDS: 0.9% NaCl Peripheral Flush Adult/Peds IV ×2 (10:27→11:30)
== END 2020-05-28 14:00 | disposition home or self-care (01) ==
LOC: MEDOUTP 09:56
PROVIDERS: PCP Family Medicine
DX: A49.1 Streptococcal infection, unspecified site (principal)
CPT/HCPCS: 96365; J7050; A4216; J0696

== ENCOUNTER → 2020-05-29 09:43 | Outpatient (CLI) | payer MEDICARE, SELFPAY ==
[2020-05-27 08:54] VITALS: BMI 25.7
[2020-05-28 10:18] VITALS: BMI 25.7
[2020-05-29] MEDS: 0.9% NaCl IVPB Med Flush (250 mL) 15 ML IV (09:59)
[2020-05-29] MEDS: 0.9% NaCl Peripheral Flush Adult/Peds IV ×2 (09:59→10:50)
[2020-05-29 10:01] VITALS: BP 133/61; PULSE 90; RESP 16; TEMP 36.1; BMI 25.7
[2020-05-29 10:52] VITALS: BP 128/65; PULSE 88; RESP 16; TEMP 36.1; O2SAT 98
== END ==
PROVIDERS: PCP Family Medicine
DX: A49.1 Streptococcal infection, unspecified site (principal)
CPT/HCPCS: 96365; J7050; A4216; J0696

== ENCOUNTER → 2020-05-30 09:47 | Outpatient (CLI) | payer MEDICARE, SELFPAY ==
[2020-05-27 08:54] VITALS: BMI 25.7
[2020-05-29 10:01] VITALS: BMI 25.7
[2020-05-30 09:52] VITALS: BP 149/72; PULSE 96; RESP 18; TEMP 36.2; O2SAT 97; BMI 25.7
[2020-05-30] MEDS: 0.9% NaCl IVPB Med Flush (250 mL) 15 ML IV (09:57)
[2020-05-30] MEDS: 0.9% NaCl Peripheral Flush Adult/Peds IV ×2 (09:57→10:48)
[2020-05-30 11:27] VITALS: BP 132/73; PULSE 89; RESP 18; TEMP 36.3; O2SAT 96
== END ==
PROVIDERS: PCP Family Medicine
DX: A49.1 Streptococcal infection, unspecified site (principal)
CPT/HCPCS: J7050; A4216; J0696

== ENCOUNTER → 2020-05-30 13:57 | Outpatient (CLI) | payer MEDICARE, SELFPAY ==
[2020-05-30 09:52] VITALS: BMI 25.7
[2020-05-30 15:12] LABS: Absolute Lymphocyte Count 1.54 X10^3/uL (0.83-4.51); Basophil% 1.2 % (0-1); Eosinophil# 0.08 X10^3/uL; Hematocrit 39.8 % (37-47); Hemoglobin 12.7 g/dL (12.0-15.0); Lymphocyte # 1.54 X10^3/ul (4.0); Lymphocyte % 18.4 % (19-41); Mean Corp Hgb Conc 31.9 g/dL (32-36); Mean Corpuscular Hgb 33.7 pg (27.0-32.0); Mean Corpuscular Volume 105.6 fL (81-99); Mean Platelet Vol. 9.2 fl (6.2-12.0); Monocyte# 0.58 X10^3/uL; Monocyte% 6.9 % (0-10); NRBC Flagged by Analyzer 0 % (0-5); Neutrophil # 6.04 X10^3/uL (2.7-7.7); Platelet Count 517 K/mm3 (150-450); RBC Distribution Width CV 12.1 % (11.6-14.6); RBC Distribution Width SD 48.1 fl (35.1-43.9); Red Blood Count 3.77 M/mm3 (4.2-5.4); White Blood Count 8.4 K/mm3 (4.4-11.0)
[2020-05-30 15:32] LABS: BNP,B-Type NATRIURETIC PEPTIDE 48.2 pg/mL (0-100)
[2020-05-30 15:38] LABS: ALB/GLOB Ratio 0.9 RATIO (0.9-2.4); AST(SGOT) 36 U/L (15-37); Alanine Aminotransfer ALT/SGPT 52 U/L (13-56); Albumin, Serum 3.5 g/dL (3.2-5.0); Alkaline Phosphatase 67 U/L (45-117); Anion Gap 5 (5-15); BUN 14 mg/dL (7-18); BUN/Creat Ratio 14.1 RATIO (10-20); Calcium,Total 9.4 mg/dL (8.5-10.1); Chloride 102 mmol/L (98-107); Creatinine, Serum 0.99 mg/dL (0.55-1.02); EST Glomerular Filtration Rate 57 mL/min (>60); Est Glom Filt Rate - Afr Amer 69 mL/min (>60); Globulin 4.1 g/dL (2.2-4.2); Glucose 105 mg/dL (74-106); Potassium 3.6 mmol/L (3.5-5.1); Protein, Total 7.6 g/dL (6.4-8.2); Sodium Level 140 mmol/L (136-145); Thyroid Stim Hormone (TSH) 1.26 uIU/mL (0.358-3.74)
== END ==
PROVIDERS: PCP Family Medicine; Referring Provider Family Medicine; Visit Provider Family Medicine
DX: I34.0 Nonrheumatic mitral (valve) insufficiency (principal); E04.1 Nontoxic single thyroid nodule; I50.9 Heart failure, unspecified; E78.5 Hyperlipidemia, unspecified; R74.8 Abnormal levels of other serum enzymes; A49.1 Streptococcal infection, unspecified site
CPT/HCPCS: 96365; 36415; 80053; 83880; 84443; 85025; J7050; A4216; J0696

== ENCOUNTER 2020-07-08 08:49 | Day surgery (SDC) | payer MEDICARE, SELFPAY ==
[2020-06-26 10:27] VITALS: BMI 26.6
--- NOTE | 2020-06-26 12:11 | RAD_ITS ---
STUDY: X-RAY CHEST REASON FOR EXAM: Female, 79 years old. shortness of breath TECHNIQUE: PA and lateral views of the chest. COMPARISON: 02/28/2019 FINDINGS: EKG leads project over the chest. There is hyperinflation of the lungs consistent with chronic obstructive lung disease (COPD). No airspace consolidation. There is no demonstrated pleural abnormality. Normal size heart. Normal mediastinum and delmi. Normal visualized pulmonary arteries. There is atherosclerotic calcification of the aortic arch with tortuosity. There is demineralization of the osseous structures. There is scoliosis of the thoracolumbar spine. There is no demonstrated abnormality of the visualized soft tissue structures of the upper abdomen. RAD/Chest PA and Lateral IMPRESSION: Stable exam. No acute cardiopulmonary process. COPD. Electronically Signed: Neo Prather MD ([place]) at 17:03 EDT , Service support ,
[2020-06-26 12:40] LABS: Absolute Lymphocyte Count 1.59 X10^3/uL (0.83-4.51); Absolute Neutrophil Count 4.4 X10^3/uL (2.0-7.7); Basophil# 0.06 X10^3/uL; Basophil% 0.9 % (0-1); Eosinophil# 0.04 X10^3/uL; Eosinophils% 0.6 % (0-5); Hematocrit 35.4 % (37-47); Lymphocyte # 1.59 X10^3/ul (0.83-4.51); Lymphocyte % 24.2 % (19-41); Mean Corp Hgb Conc 31.1 g/dL (32-36); Mean Corpuscular Hgb 33.4 pg (27.0-32.0); Mean Corpuscular Volume 107.6 fL (81-99); Mean Platelet Vol. 8.8 fl (6.2-12.0); Monocyte# 0.47 X10^3/uL; Monocyte% 7.2 % (0-10); NRBC Flagged by Analyzer 0 % (0-5); Neutrophil # 4.38 X10^3/uL (2.7-7.7); Neutrophil % 66.8 % (47-70); Platelet Count 404 K/mm3 (150-450); RBC Distribution Width CV 13.5 % (11.6-14.6); RBC Distribution Width SD 53.9 fl (35.1-43.9); Red Blood Count 3.29 M/mm3 (4.2-5.4); White Blood Count 6.6 K/mm3 (4.4-11.0)
[2020-06-26 12:51] LABS: International Normalized Ratio 0.9; Prothrombin Time (Protime)PT. 11.8 SECONDS (11.7-14.9)
[2020-06-26 12:52] LABS: Partial Thromboplast Time 30.3 Seconds (24.1-36.2)
[2020-06-26 13:04] LABS: Anion Gap 6 (5-15); BUN 12 mg/dL (7-18); BUN/Creat Ratio 15.1 RATIO (10-20); Calcium,Total 9.1 mg/dL (8.5-10.1); Chloride 103 mmol/L (98-107); EST Glomerular Filtration Rate 74 mL/min (>60); Est Glom Filt Rate - Afr Amer 89 mL/min (>60); Glucose 91 mg/dL (74-106); Potassium 3.9 mmol/L (3.5-5.1); Sodium Level 139 mmol/L (136-145)
[2020-07-07 08:08] VITALS: BMI 26.6
[2020-07-08 11:00] LABS: Base Excess 3 mmol/L (-2 to +2); Blood Gas Specimen Type ART; PO2 64 mmHG (75-100); SO2 92 % (95-99); Total Carbon Dioxide 29 mmol/L; pCO2 46.9 mmHg (35-45); pH 7.38 (7.35-7.45)
[2020-07-08 11:25] LABS: Blood Gas Specimen Type VEN; VBG BASE EXCESS 3 mmol/L (-1.0-3.5); VBG Bicarbonate 29 mmol/L (22-26); VBG PO2 52 mmHg (25-40); VBG SO2 84 % (50-70); VBG TCO2 30 mmol/L (23-33); VBG pCO2 52.2 mmHg (41-51); VBG pH 7.35 (7.32-7.42)
[2020-07-08 11:31] LABS: Blood Gas Specimen Type VEN; VBG BASE EXCESS 2 mmol/L (-1.0-3.5); VBG Bicarbonate 28 mmol/L (22-26); VBG PO2 39 mmHg (25-40); VBG SO2 69 % (50-70); VBG TCO2 30 mmol/L (23-33); VBG pCO2 53.4 mmHg (41-51); VBG pH 7.33 (7.32-7.42)
[2020-07-08 11:41] LABS: Blood Gas Specimen Type VEN; VBG BASE EXCESS 3 mmol/L (-1.0-3.5); VBG Bicarbonate 29 mmol/L (22-26); VBG PO2 36 mmHg (25-40); VBG SO2 64 % (50-70); VBG TCO2 31 mmol/L (23-33); VBG pCO2 55.6 mmHg (41-51); VBG pH 7.33 (7.32-7.42)
--- NOTE | 2020-07-08 11:55 | HP.PCM_ITS ---
History and Physical [facility] [address] [place] [address] OFFICE VISIT Date of Service:? 06/26/20 MR#: [id number] Acct: [id number] Name:COMPA CELESTIN Rep #: [id number] : 1940 Provider: Dr. Colton Gaspar MD Age/Sex:? 79/F Location: [facility] Status: Signed History of Present Illness Surgical H&P: Yes Details: This is an 79-year-old white female who presents today for outpatient cardiovascular consultation based upon concerns of severe mitral valve regu rgitation superimposed upon pulmonary hypertension, essential hypertension, and COPD with chronic shortness of breath/dyspnea.? She was evaluated through the [facility] system based upon concerns of altered mental status.? It was thought this was related to chronic hypoxic respiratory failure secondary to her underlying COPD superimposed upon concerns of an underlying infectious disease process with Streptococcus superimposed upon a history of a brain aneurysm status post coiling.? While there she underwent cardiovascular evaluation.? This included a transthoracic echocardiogram.? According to the report the left ventricle was thought to be normal with an LVEF of 68%.? There was notation of moderate mitral annular calcification with mild MR.? There was trivial TR.? The estimated RV systolic pressure was 43 mmHg.? There was no obvious valvular vegetation reported. She also underwent further evaluation with a transesophageal echocardiogram.? Based upon the report the left ventricle was thought to be normal with an LVEF 55%, the right ventricle was thought to demonstrate mildly diminished systolic function, the left atrium was mildly dilated, the mitral valve suggested possible mild posterior leaflet prolapse with an anteriorly directed mitral valve jet which was considered severe, there trivial TR, there was no vegetations reported, there was no PFO reported. She states she was recommended for continued outpatient cardiovascular follow-up based upon concerns of her severe mitral valve regurgitation.? Thus she presents today for outpatient cardiovascular consultation. She notes her main concern is her chronic shortness of breath and dyspnea.? She does not describe classic orthopnea or PND or peripheral pitting edema.? There is been no ongoing chest discomfort and no near syncope or syncope.? She does wear O2 nasal cannula at night. She states she has been evaluated by her seed tester and follow-up.? She states she was told that her shortness of breath and dyspnea has been exacerbated by her mitral valve regurgitation and she needs continued cardiovascular evaluation care. She had an ECG in the office today.? She was noted be in sinus rhythm with no acute ECG changes. Intake Vital Signs 06/26/20 Height 5 ft 5 in 06/26/20 Weight: 160 lb 4 oz 06/26/20 BMI 26.6 06/26/20 BP 142/68 H 06/26/20 Blood Pressure Location [facility] hivt 06/26/20 Position Sitting 06/26/20 Respiration 18 06/26/20 Pulse 108 H 06/26/20 Pulse Source Auscultation Intake Visit Reasons: Mitral Regurgitation/Ref. [facility] Specialist Required: No Accompanied by: Allergies No Known Allergies Allergy (Verified 06/26/20 10:28) Medications lisinopril 40 mg tablet 40 mg PO DAILY 11/22/17 [History Confirmed 06/26/20] Aspirin [Aspirin, Baby] 81 mg PO DAILY@0800 #30 tab.chew 05/06/18 [Rx Confirmed 06/26/20] Albuterol Inhaler [Ventolin Hfa] 2 puff INHALATION [id number] PRN #1 inhaler 03/02/19 [Rx Confirmed 06/26/20] glycopyrrolate 9 mcg-formoterol 4.8 mcg HFA aerosol inhaler 2 inh INHALATION BID #10.7 gm 06/17/20 [Rx Confirmed 06/26/20] atorvastatin 40 mg tablet 40 mg PO QHS 06/20/20 [History Confirmed 06/26/20] calcium carbonate 600 mg calcium (1,500 mg) tablet 1,200 mg PO DAILY? tablet 06/20/20 [History Confirmed 06/26/20] glucosamine QJk-sil-binhnimbhpr ER 375 mg-250 mg-300 mg tablet,ext.rel 1 tablet PO BID? tablet 06/20/20 [History Confirmed 06/26/20] multivitamin 1 tablet PO DAILY 06/20/20 [History Confirmed 06/26/20] vitamin B complex 1 tablet PO DAILY 06/20/20 [History Confirmed 06/26/20] furosemide 20 mg tablet 20 mg PO DAILY #90 tablet 06/26/20 [Rx Confirmed 06/26/20] PFSH Medical History? Non-rheumatic mitral regurgitation (Acute) Essential hypertension (Chronic) Carotid artery aneurysm (Chronic) Chronic respiratory failure with hypoxia (Chronic) Diastolic CHF, chronic (Chronic) COPD with exacerbation (Acute) Hyponatremia (Acute) Hypoxia (Chronic) Shortness of breath (Acute) Cough (Acute) Stage 3 severe COPD by GOLD classification (Chronic) Lung nodule (Chronic) Dyspnea (Acute) TIA (transient ischemic attack) (Resolved) HLD (hyperlipidemia) (Chronic) ETOH abuse (Chronic) Rectal bleeding (Resolved) Alcohol abuse (Acute) Arthritis (Acute) Breast lump (Acute) Cataract (Acute) Hearing problem (Acute) Impaired fasting glucose (Acute) Osteopenia (Acute) Brain tumor (Chronic) Disorder of thyroid gland (Chronic) Hearing loss (Chronic) Solitary pulmonary nodule (Chronic) History of aneurysm surgery (Inactive) Hypertension (Inactive) Surgical History? History of appendectomy (Resolved) History of breast biopsy (Resolved) History of cataract surgery (Resolved) History of cranial surgery (Resolved) History of left hip replacement (Resolved) History of ovarian cystectomy (Resolved) Family History? Mother Malignant neoplasm of skin Arthritis OsteoporosisAunt CVA (cerebral vascular accident)Grandfather Asthma CVA (cerebral vascular accident)Father Asthma Social History? (Updated 06/26/20 @ 11:[address] Colton Gaspar MD) Tobacco: How many years used:? 40 how long ago did patient quit smoking:? 18 second hand exposure:? No alcohol intake:? current alcohol intake frequency: 3 or more drinks per day details:? wine or hard liquor substance use type:? does not use caffeine:? Yes Type: coffee Number of servings: 1 ROS Const Const: Negative for fatigue, weakness, frequent falls, excessive sweating, weight gain or weight loss Eyes Eyes: Negative for transient loss of vision, blurry vision or change in vision ENT ENT: Negative for dizziness or balance problems Cardio Chest Pain: No Palpitations: No Edema: None Muscle aches with walking: None Resp Respiratory: Positive for SOB with activity (increased; wears oxygen @ night and prn); negative for SOB at rest GI GI: Negative vomiting or vomiting blood/hematemesis : Negative for hematuria Musc Musc: Negative for muscle aches/ myalgia, muscle weakness, joint pain or balance problems Skin Skin: Negative non-healing lesions or rash Neuro Neuro: Negative for dizziness, lightheadedness, orthostatic symptoms, frequent falls, weakness or blurry vision Johan Hematologic/Lymphatic: Negative for easy bleeding Endo Endo: Negative for fatigue or excessive sweating Psych Psych: Negative for anxiety or depression Allergy Allergy/Immunology: Negative for hives, Negative for rash Cardiology Exam Const Appearance: cooperative, healthy appearing, comfortable, no acute distress, well developed and well groomed Nutritional Appearance: overweight Orientation: alert, awake and oriented x3 Head Head: normal to inspection, normocephalic and atraumatic Ears: hearing grossly normal bilaterally Nose: external nose normal Face and Sinus: face symmetric Eyes Eyelids: eyelids normal Conjunctivae: conjunctivae normal Pupils: PERRL EOM: EOM intact bilaterally Neck Neck: normal visual inspection and full ROM Carotids: normal carotid upstroke Chest Chest inspection: normal inspection of the chest, symmetric chest movement and normal respiratory effort Auscultation:?Bilateral:?Clear to Auscultation Cardio Palpation: normal PMI Rate: regular rate Rhythm: regular rhythm Heart sounds: S1 normal and S2 normal Murmur: Grade 3/6, holosystolic, LLSB, apex, axilla, LVOT and sternal notch GI GI: normal to inspection, soft and bowel sounds present Neuro General: alert, awake, oriented x3 and moves all extremities Skin Skin: no rashes or lesions noted Extremities Pulses:?Normal:?Right Radial Pulse, Left Radial Pulse Lower Extremity Edema:?None:?Bilateral Psych Psychological: normal affect Assessment & Plan 1. Nonrheumatic mitral valve regurgitation? I34.0 Plan She does have a report, by the [facility], no severe mitral valve regurgitation. This is can participate in her concerns of chronic shortness of breath and dyspnea. Her diagnosis was discussed with her with respect to continued medical management as well as continued cardiovascular evaluation in anticipation of a tertiary care center evaluation for possible mitral valve repair/replacement either percutaneous or surgical based. This evaluation would include a diagnostic cardiac catheterization.? The procedure and risks were discussed with her.? She was agreeable to this approach. ?? Orders ?Orders: ? 12 Lead EKG performed by [facility] Today ? ? ? Left & Right Heart Cath Today ? ? ? Basic Metabolic Profile (BMP) Today ? ? ? Partial Thromboplast Time Today ? ? ? Prothrombin Time w/INR Today ? ? ? CBC W/Diff, Automated Today ? ? ? Chest PA and Lateral Today ? ? 2. Essential hypertension? I10 Plan She will continue antihypertensive therapy as directed. ?? Orders ?Orders: ? 12 Lead EKG performed by [facility] Today ? ? ? Left & Right Heart Cath Today ? ? ? Basic Metabolic Profile (BMP) Today ? ? ? Partial Thromboplast Time Today ? ? ? Prothrombin Time w/INR Today ? ? ? CBC W/Diff, Automated Today ? ? ? Chest PA and Lateral Today ? ? 3. Pure hypercholesterolemia? E78.00 Plan She will continue lipid-lowering therapy. ?? Orders ?Orders: ? Left & Right Heart Cath Today ? ? ? Basic Metabolic Profile (BMP) Today ? ? ? Partial Thromboplast Time Today ? ? ? Prothrombin Time w/INR Today ? ? ? CBC W/Diff, Automated Today ? ? ? Chest PA and Lateral Today ? ? 4. COPD with exacerbation? J44.1 Plan She will continue to follow with pulmonology for her underlying COPD process. ?? Orders ?Orders: ? Left & Right Heart Cath Today ? ? ? Basic Metabolic Profile (BMP) Today ? ? ? Partial Thromboplast Time Today ? ? ? Prothrombin Time w/INR Today ? ? ? CBC W/Diff, Automated Today ? ? ? Chest PA and Lateral Today ? ? Plan Detail ? Other Orders ?Orders: ? 12 Lead EKG performed by [facility] Today I50.3 2 ? ? Partial Thromboplast Time Today I50.32 ? ? CBC W/Diff, Automated Today E78.0 ? ? Other Medications ?New: ? furosemide 20 mg PO DAILY 90 tabs 3RF ? ? Additional Comments Overall, the present time, she will continue her medical management. She will be scheduled for upcoming diagnostic cardiac catheterization to assist in her ongoing cardiovascular evaluation and care. Following that, her cardiovascular information can be forwarded to a tertiary care center for her to be considered for mitral valve repair either percutaneously or surgically. Thank you for allowing us to participate in the patients plan of care, if you have any questions please do not hesitate to call. This note was generated with [employer] dictation software. It may contain incorrect words, spelling, and punctuation that were not noted in checking the note before signing. ?? Follow Up ? ? ? 3 Months?(PFM) Coding Level of Care Code Off vis,new,level 5 Diagnoses Nonrheumatic mitral valve regurgitation? I34.0 Essential hypertension? I10 Pure hypercholesterolemia? E78.00 ??Hyperlipidemia type: pure hypercholesterolemia COPD with exacerbation? J44.1 Coding Level of Care Code Off vis,new,level 5 Diagnoses Nonrheumatic mitral valve regurgitation? I34.0 Essential hypertension? I10 Pure hypercholesterolemia? E78.00 ??Hyperlipidemia type: pure hypercholesterolemia COPD with exacerbation? J44.1 Supplemental Info Supplemental Information Labs ???LDL Cholesterol?? 136 mg/dL (0-130)? H ? 05/05/18 ???HDL Cholesterol?? 66 mg/dL (40-) ? 05/05/18 ???Triglycerides?? 75 mg/dL (-199) ? 05/05/18 ???VLDL Cholesterol?? 15 mg/dL (5-40)? ? 05/05/18 Diagnostics ???Electrocardiogram? ? ? 06/26/20 ???Echocardiogram? ? ? 04/02/19 ???Chest X-Ray? ? ? 02/28/19 Pulmonary ???Pulmonary Function Test? ? ? 02/17/19 ???Pulmonary Exercise Test? ? ? 04/17/19 COVID (Procedure Consent) Procedure Criteria Procedure Criteria: Yes Elective??The surgeon/proceduralist and patient have discussed in detail the risk of exposure to and/or potential harm posed by the COVID-19 virus with having a surgery/procedure at this time versus the risk of? delaying the surgery/procedure. It is not possible to know either the risk of delaying the surgery or procedure or chance of getting an infection with perfect accuracy, but a joint decision was made between the patient and the surgeon/proceduralist ?to proceed at this time with the scheduled surgery/procedure as indicated on the consent form. 06/26/20 1131 <Electronically signed by Colton Gaspar MD> Date Colton Gaspar MD Cosigner Signature: Date (if applicable) CC:? Dr. Rustam Castro MD ~ I have re-examined the patient. There are no clinical changes since date of exam.
--- NOTE | 2020-07-08 14:22 | CL.D_ITS ---
Patient Name: COMPA WATERS Study Date: 07/08/2020 Performing: Colton Gaspar MD Ht: 64.96 inches 165 cm : 1940 Wt: 160.94 lbs 73 kg Age: 79 Gender: female BSA: 1.8 PROCEDURE(S) PERFORMED EL63-VDN/LHC/COR/LV CLINICAL PROFILE AND INDICATIONS Indications: Valvular Disease, Pre-Operative Evaluation Heart Failure: None Stress/Imaging Stress/Image Study Performed: No Angina Classification Anginal Classification w/in 2 Weeks: Anginal Equivalent Dyspnea CAD Presentations: Other: shortness of breath CONCLUSIONS Right heart pressures - Normal Intracardiac shunting: None Elevated Left Ventricular End Diastolic Pressure Normal LV size, wall motion,and systolic function LVEF: by LV gram 65 % Mitral Valve Insufficiency Mild RECOMMENDATIONS Medical therapy Management as per referring [facility] consult for valvular disease: MR ([facility]: MR - Severe) DESCRIPTION OF PROCEDURE The patient arrived to the procedure lab. The risks and benefits of the procedure as well as a full d escription of our services here and current unavailability of surgical backup were fully explained to the patient and/or their significant other prior to the catheterization. The Timeout was completed, verifying the correct patient and procedure. The patient's procedural site was prepped and draped in the usual fashion. Local anesthetic was given subcutaneously to right radial region with Lidocaine 2% . Using a modified Seldinger technique, arterial access was obtained via the right radial artery, a 6 Fr sheath was inserted. Venous access was obtained via the right brachiocephalic vein, a 7Fr sheath w as inserted. A 7Fr thermal dilution catheter was inserted and right heart pressures were recorded, it was then advanced to PA position for cardiac outputs. O2 saturations were then obtained. Thermal dil ution cardiac outputs were then recorded. Left Ventriculography was performed in MARTINEZ projection using a 5 Fr. Pigtail catheter. Simultaneous pressures were then recorded. LV to AO pullba ck pressures were then recorded. The Thermal dilution catheter was then removed. Left Coronary Artery selective angiography was performed in multiple views using a 5 Fr. 4.0 Moca catheter. Right Chau ry Artery selective angiography was then performed in multiple views using a 5 Fr. 4.0 Moca catheter .The arterial sheath was pulled and a TR Band was applied for hemostasis 19cc air. The venous sheath was then pulled and manual compression applied until hemostasis achieved CORONARY ANGIOGRAPHY DOMINANCE: Right Dominant LEFT HEART ASSESSMENT Left Ventricular Ejection Fraction: by LV Gram 65 % Normal LV wall motion Elevated Left Ventricular End Diastolic Pressure LVEDP: 23 mmHg RIGHT HEART ASSESSMENT Thermal CO: 5.63 Thermal CI: 3.13 Waldo CO: 20 Waldo CI: 11.11 PW: 4/5 4 PA: 21/5 12 RV: 20/0 3 RA: 4/2 1 PVR: 114 SVR: 1620 Right Heart pressures - normal Intracardiac shunting: None LEFT MAIN: Angiographically normal LEFT ANTERIOR DESCENDING ARTERY: Mild luminal irregularities CIRCUMFLEX ARTERY: Angiographically normal RIGHT CORONARY ARTERY: PROX RCA: Mild luminal irregularities VALVE FINDINGS: Mitral Valve Insufficiency - Grade 1 AORTIC ROOT: Angiographically normal COMPLICATIONS No Complications PROCEDURE MEDICATIONS Fentanyl 50 mcg IV Versed 1 mg IV Fentanyl 50 mcg IV Versed 1 mg IV SUMMARY OF HEMODYNAMIC DATA Time AIR REST ECG 09:21:20 Art 209/67 (103) 10:53:55 RA 4/2 (1) SV 11:15:32 RV 20/0, 3 11:16:24 PW 4/5 (4) PV 11:16:46 PA 21/5 (12) PA 11:16:59 LV 156/-10, 21 11:25:51 PW 19/18 (15) 11:25:51 LV 159/-11, 23 11:25:57 PW 19/18 (15) 11:25:57 LV 150/2, 26 11:27:06 PW 23/0 (21) 11:27:06 LV 144/3, 15 11:27:12 PW 25/31 (23) 11:27:12 LV 153/0, 27 11:27:26 LVp 154/0, 30 11:27:31 AOp 91/54 (72) 11:27:36 PA 38/18 (28) 11:28:04 RV 35/10, 13 11:28:46 RA 13/13 (11) 11:29:15 AO 167/79 (115) SA 11:29:45 Type SV CO (l/m) CI (l/m/ HR Time AIR REST Thermal 56.30 5.63 3.13 100 09:21:20 Waldo 200.00 20.00 11.11 100 09:21:20 Label % O2 Pres/Loc Time AIR REST AO 92 PV 11:36:54 IVC 84 SV 11:37:00 PA 69 PA 11:37:06 SVC 64 11:37:11 Signed By Colton Gaspar MD On 07/08/2020 2:21:27 PM Colton Gaspar MD
== END 2020-07-08 14:40 | disposition home or self-care (01) ==
PROVIDERS: PCP Family Medicine; Referring Provider Internal Medicine Cardiovascular Disease; Visit Provider Internal Medicine Cardiovascular Disease
DX: I34.0 Nonrheumatic mitral (valve) insufficiency (principal); R06.02 Shortness of breath; E78.00 Pure hypercholesterolemia, unspecified; J44.1 Chronic obstructive pulmonary disease with (acute) exacerbation; I11.0 Hypertensive heart disease with heart failure; I50.32 Chronic diastolic (congestive) heart failure; M19.90 Unspecified osteoarthritis, unspecified site; Z87.891 Personal history of nicotine dependence; Z79.51 Long term (current) use of inhaled steroids; Z79.899 Other long term (current) drug therapy
CPT/HCPCS: 36415; 71046; 80048; 82803; 85025; 85610; 85730; 93460; 99152; 99153; J7040; Q9967; C1751; C1769; C1894

== ENCOUNTER → 2020-07-22 10:29 | Outpatient (CLI) | payer MEDICARE, SELFPAY ==
[2020-07-07 08:08] VITALS: BMI 26.6
--- NOTE | 2020-07-22 10:31 | US_ITS ---
STUDY: THYROID ULTRASOUND REASON FOR EXAM: Female, 79 years old. NODULE FOUND ON CT TECHNIQUE: Ultrasound evaluation of the thyroid was performed with real-time and static thornton-scale imaging. COMPARISON: None. FINDINGS: RIGHT LOBE: The right lobe of the thyroid gland measures 4.4 x 1.6 x 1.7 cm. There is a homogeneous echotexture. There is a simple colloid cyst measuring 1.0 cm, and a solid/cystic 0.7 cm nodule. LEFT LOBE: The left lobe of the thyroid gland measures 4.4 x 1.6 x 1.2 cm. There is a homogeneous echotexture. There is a simple colloid cyst measuring 0.7 cm, and a complex solid/cystic nodule measuring 1.6 cm ISTHMUS: The isthmus measures 0.3 cm. The regional lymph nodes are normal. US/Thyroid IMPRESSION: Borderline enlarged thyroid with bilateral solid/cystic nodules and bilateral simple cysts. No suspicious findings, yearly follow up could be performed to assess stability Electronically Signed: Tao Wagner MD at 11:23 EDT , Service support ,
== END ==
PROVIDERS: PCP Family Medicine; Referring Provider Family Medicine; Visit Provider Family Medicine
DX: E04.1 Nontoxic single thyroid nodule (principal)
CPT/HCPCS: 76536